=== PATIENT | male | born 1950 | race Caucasian/White ===

== ENCOUNTER → 2019-11-02 13:24 | Outpatient (BNVA) | payer OTHER, SELFPAY | PROVIDERS: Family Provider Internal Medicine; PCP Internal Medicine; Visit Provider Internal Medicine Rheumatology | DX: L40.50 Arthropathic psoriasis, unspecified (principal); Z11.59 Encounter for screening for other viral diseases; Z79.899 Other long term (current) drug therapy; Z11.1 Encounter for screening for respiratory tuberculosis; L40.0 Psoriasis vulgaris; M19.90 Unspecified osteoarthritis, unspecified site; Z72.89 Other problems related to lifestyle; Z40.9 Encounter for prophylactic surgery, unspecified; Z71.89 Other specified counseling | CPT/HCPCS: 36415; 85025; 86480; 99214 ==

== ENCOUNTER → 2019-11-02 14:36 | Outpatient (BNVA) | payer MEDICARE, SELFPAY | PROVIDERS: Family Provider Internal Medicine; PCP Internal Medicine; Visit Provider Internal Medicine Rheumatology | DX: L40.50 Arthropathic psoriasis, unspecified (principal); Z79.899 Other long term (current) drug therapy; L40.9 Psoriasis, unspecified; Z11.59 Encounter for screening for other viral diseases; L40.0 Psoriasis vulgaris; M19.90 Unspecified osteoarthritis, unspecified site; Z71.89 Other specified counseling | CPT/HCPCS: 85025 ==

== ENCOUNTER 2019-11-02 15:18 | Outpatient (CLI) | payer OTHER, SELFPAY ==
--- NOTE | 2019-11-02 15:41 | XR_ITS ---
WS: [id number] LEFT ELBOW: 2 VIEW(S) TECHNIQUE: AP and lateral. HISTORY: arthritis COMPARISON: None available. No acute fractures or dislocation. No joint effusion. Mild spurring at the coronoid process. XR/XR elbow LT 2V [id number] IMPRESSION: Mild osteoarthritis.
--- NOTE | 2019-11-02 15:41 | XR_ITS ---
WS: [id number] RIGHT FOOT: 3 VIEW(S) TECHNIQUE: PA, oblique and lateral. HISTORY: arthritis COMPARISON: 08/01/2019 No acute fracture or dislocation. Severe joint space narrowing at the first metatarsophalangeal joint. Hypertrophic bone formation and sclerosis with complete loss of the joint space. No metatarsal head erosions. No soft tissue abnormality or bone destruction. XR/XR foot RT min 3V* [id number] IMPRESSION: Severe osteoarthritis at the first metatarsophalangeal joint.
--- NOTE | 2019-11-02 15:41 | XR_ITS ---
WS: [id number] LEFT HAND: 3 VIEW(S) TECHNIQUE: PA, oblique and lateral. HISTORY: arthritis COMPARISON: None available. No acute fracture or dislocation. Mild interphalangeal joint space narrowing. No erosions. No osteopenia. XR/XR hand LT min 3V* [id number] IMPRESSION: Mild osteoarthritis.
--- NOTE | 2019-11-02 15:41 | XR_ITS ---
WS: [id number] CHEST 2 VIEWS HISTORY: arthritis COMPARISON: 02/02/2016 Lungs: Linear atelectasis in the lingula. Benign granuloma RIGHT upper lobe. No pneumonia. Mild reggie ening of the diaphragms. Cardiac size: Normal. Mediastinum/Aorta: Mild atherosclerosis aorta. Bones: Prior anterior cervical fusion. XR/XR chest 2V* [id number] IMPRESSION: Subsegmental atelectasis in the lingula. Prior granulomatous disease.
--- NOTE | 2019-11-02 15:41 | XR_ITS ---
WS: [id number] RIGHT HAND: 3 VIEW(S) TECHNIQUE: PA, oblique and lateral. HISTORY: arthritis COMPARISON: None available. Mild interphalangeal joint space narrowing. Mild narrowing of the metacarpal phalangeal joints. No er osions are appreciated. No soft tissue edema. XR/XR hand RT min 3V* [id number] IMPRESSION: Mild osteoarthritis.
--- NOTE | 2019-11-02 15:41 | XR_ITS ---
WS: [id number] LEFT FOOT: 3 VIEW(S) TECHNIQUE: PA, oblique and lateral. HISTORY: arthritis COMPARISON: None available. No acute fracture or dislocation. Severe degenerative changes at the first metatarsophalangeal joint. Loss of joint space with osteophy silvia and sclerosis. No metatarsal head erosions. Hammertoe deformities. Normal tarsal/metatarsal alignment. XR/XR foot LT min 3V* [id number] IMPRESSION: 1. Severe osteoarthritis at the first metatarsophalangeal joint. 2. Hammertoe deformities.
== END 2019-11-02 15:19 | disposition home or self-care (01) ==
LOC: RADWPI 15:28
PROVIDERS: Family Provider Internal Medicine; PCP Internal Medicine; Visit Provider Internal Medicine Rheumatology
DX: L40.50 Arthropathic psoriasis, unspecified (principal); Z11.59 Encounter for screening for other viral diseases; Z79.899 Other long term (current) drug therapy; Z11.1 Encounter for screening for respiratory tuberculosis; L40.0 Psoriasis vulgaris; M19.90 Unspecified osteoarthritis, unspecified site; Z72.89 Other problems related to lifestyle; Z71.89 Other specified counseling; M19.042 Primary osteoarthritis, left hand; M19.041 Primary osteoarthritis, right hand; M19.072 Primary osteoarthritis, left ankle and foot; M19.071 Primary osteoarthritis, right ankle and foot; M20.42 Other hammer toe(s) (acquired), left foot; M19.022 Primary osteoarthritis, left elbow; J98.11 Atelectasis
CPT/HCPCS: 71046; 73070; 73130; 73630; 80076; 82565; 85651; 86140; 86704; 86803; 87340

== ENCOUNTER → 2020-01-06 08:15 | Outpatient (BNVA) | payer OTHER, SELFPAY | PROVIDERS: Family Provider Internal Medicine; PCP Internal Medicine; Visit Provider Orthopaedic Surgery | DX: Z96.652 Presence of left artificial knee joint (principal) | CPT/HCPCS: 73560; 73565 ==

== ENCOUNTER → 2020-01-25 14:06 | Outpatient (BNVA) | payer OTHER, SELFPAY | PROVIDERS: Family Provider Internal Medicine; PCP Internal Medicine; Visit Provider Internal Medicine Rheumatology | DX: Z79.899 Other long term (current) drug therapy (principal) | CPT/HCPCS: 36415; 80076; 82565; 85025; 85651; 86140 ==

== ENCOUNTER → 2020-02-01 15:24 | Outpatient (BNVA) | payer SELFPAY | PROVIDERS: Family Provider Internal Medicine; PCP Internal Medicine; Visit Provider Internal Medicine Rheumatology | DX: L40.50 Arthropathic psoriasis, unspecified (principal); Z79.899 Other long term (current) drug therapy; L40.0 Psoriasis vulgaris | CPT/HCPCS: 99214 ==

== ENCOUNTER → 2020-09-27 14:20 | Outpatient (BNVA) | payer OTHER, SELFPAY | PROVIDERS: Family Provider Internal Medicine; PCP Family Medicine; Referring Provider Family Medicine; Visit Provider Nurse Practitioner Family | DX: R39.15 Urgency of urination (principal); N40.1 Benign prostatic hyperplasia with lower urinary tract symptoms | CPT/HCPCS: 81003 ==

== ENCOUNTER → 2020-11-29 10:46 | Outpatient (BNVA) | payer OTHER, SELFPAY | PROVIDERS: Family Provider Internal Medicine; PCP Family Medicine; Visit Provider Urology | DX: N40.1 Benign prostatic hyperplasia with lower urinary tract symptoms (principal); R35.8 Other polyuria | CPT/HCPCS: 81003 ==

== ENCOUNTER → 2021-03-27 15:57 | Outpatient (BNVA) | payer OTHER, SELFPAY | PROVIDERS: PCP Family Medicine; Visit Provider Urology | DX: N40.1 Benign prostatic hyperplasia with lower urinary tract symptoms (principal); R35.8 Other polyuria | CPT/HCPCS: 81003 ==

== ENCOUNTER 2021-04-11 08:32 | Outpatient (CLI) | payer MEDICARE, SELFPAY ==
--- NOTE | 2021-04-11 08:40 | CT_ITS ---
WS: [id number] Exam: CT chest w con* [id number] Date/Time of Exam: 04/11/2021 8:41 AM Reason For Exam: COUGH DLP: 983.[address] scans at [facility] use at least one of these dose optimization techniques: automat ed exposure control; mA and/or kV adjustment per patient size (includes targeted exams where dose is matched to clinical indication); or iterative reconstruction. There are areas of plaque atelectasis in the left lung base. No acute infiltrates are noted. No pleur al or pericardial effusion. No pneumothorax. The airway is patent. The thoracic aorta is normal in ca liber. The central pulmonary arteries are clear. Mild coronary artery calcifications. No mediastinal or hilar lymphadenopathy. No axillary lymphadenopathy. No destructive bone lesions or chest wall defe cts. CT sections the upper abdomen are unremarkable. Prior cholecystectomy. CT/CT chest w con* [id number] IMPRESSION: 1. Plaque atelectasis in the left lower lobe. No acute infiltrates are noted. 2. No mass, adenopathy or other significant finding in the chest.
[2021-04-11] MEDS: iodixanol 320 mg/mL 100mL Btl IV (09:08)
== END 2021-04-11 08:33 | disposition home or self-care (01) ==
PROVIDERS: PCP Family Medicine; Visit Provider Family Medicine
DX: R05 Cough (principal); J98.11 Atelectasis
CPT/HCPCS: 71260; Q9967

== ENCOUNTER → 2021-06-11 13:52 | Outpatient (BNVA) | payer OTHER, SELFPAY | PROVIDERS: PCP Family Medicine; Visit Provider Internal Medicine Rheumatology | DX: L40.50 Arthropathic psoriasis, unspecified (principal); L40.0 Psoriasis vulgaris; M19.90 Unspecified osteoarthritis, unspecified site; Z79.899 Other long term (current) drug therapy; Z71.89 Other specified counseling; Z87.891 Personal history of nicotine dependence | CPT/HCPCS: 99214 ==

== ENCOUNTER → 2021-09-26 16:20 | Outpatient (BNVA) | payer OTHER, SELFPAY | PROVIDERS: PCP Family Medicine; Visit Provider Internal Medicine Cardiovascular Disease | DX: R06.02 Shortness of breath (principal); R42 Dizziness and giddiness; I50.33 Acute on chronic diastolic (congestive) heart failure; Z79.01 Long term (current) use of anticoagulants | CPT/HCPCS: 80048; 83880; 84443; 85025 ==

== ENCOUNTER 2021-10-03 11:43 | Outpatient (CLI) | payer OTHER, MEDICARE, SELFPAY ==
--- NOTE | 2021-10-03 11:45 | USCV_ITS ---
Kvngsho Juan Age: 71 Gender: M : 1950 Exam Date: 10/03/2021 12:16 Ordering Phys: Dara Enriquez MD ([email or web address]) Technologist: [email or web address] Exam Location: [facility] [place] Indication: DYSPNEA BP: 169 / 90 HR: 50 Rhythm: Sinus Technical Quality: Adequate MEASUREMENTS (Male / Female) Normal Values 2D ECHO LV Diastolic Diameter PLAX 4.3 cm 4.2 - 5.9 / 3.9 - 5.3 cm LV Systolic Diameter PLAX 2.2 cm IVS Diastolic Thickness 0.8 cm 0.6 - 1.0 / 0.6 - 0.9 cm IVS Systolic Thickness 1.7 cm LVPW Diastolic Thickness 0.9 cm 0.6 - 1.0 / 0.6 - 0.9 cm LVPW Systolic Thickness 2.6 cm LVOT Diameter 2.1 cm LV Ejection Fraction 2D Teich 49.8 % LV Ejection Fraction MOD 2C 58.2 % LV Ejection Fraction 2C AL 57.3 % LA Diameter 3.5 cm LA Width 3.7 cm LA Height 5.2 cm RA Width 3.1 cm RA Height 2.1 cm Aorta at Sinotubular Diameter 3.2 cm M-MODE Aortic Annulus Diameter 3.1 cm LA Ao Ratio MM 1.3 MV E Point Septal Separation 0.6 cm DOPPLER AV Peak Velocity 145.0 cm/s LVOT Peak Velocity 104.0 cm/s AV Area Cont Eq vti 2.3 cm squared AV Area Cont Eq pk 2.4 cm squared MV Area PHT 2.2 cm squared Mitral E to A Ratio 0.6 MV E' Velocity 33.0 cm/s Mitral E to MV E' Ratio 12.1 Mitral E to LV E' Lateral Ratio 10.8 Mitral E to LV E' Septal Ratio 14.0 TR Peak Velocity 142.0 cm/s TR Peak Gradient 8.1 mmHg TV Peak E Velocity 74.0 cm/s Right Atrial Pressure 3.0 mmHg Pulmonary Artery Systolic Pressu 11.1 mmHg FINDINGS Left Ventricle Normal left ventricular size and systolic function, EF 57 %. No regional wall motion abnormalities. Right Ventricle Normal right ventricular size and systolic function. Right Atrium The right atrium is normal in size. Left Atrium The left atrium is normal in size. Mitral Valve Thickened mitral valve. Trace mitral valve regurgitation. Aortic Valve Thickened aortic valve. Tricuspid Valve Trace tricuspid valve regurgitation. Pulmonic Valve No gross abnormalities noted Pericardium Normal pericardium without effusion. Aorta Normal ascending aorta dimension. CONCLUSIONS Normal left ventricular size and systolic function, EF 57 %. No regional wall motion abnormalities. Minimally thickened aortic and mitral valves. Trace mitral valve regurgitation. Trace tricuspid valve regurgitation. There is no pericardial effusion. There are no intracardiac masses. No previous study is available for comparison. Dr Dara Enriquez MD FACC (Electronically Signed) Final Date: 03 October 2021 19:45 S
== END 2021-10-03 11:44 | disposition home or self-care (01) ==
LOC: RAD 11:50
PROVIDERS: PCP Family Medicine; Visit Provider Internal Medicine Cardiovascular Disease
DX: R06.00 Dyspnea, unspecified (principal); R06.02 Shortness of breath; I08.3 Combined rheumatic disorders of mitral, aortic and tricuspid valves
CPT/HCPCS: 93306

== ENCOUNTER → 2021-10-08 13:43 | Outpatient (BNVA) | payer OTHER, SELFPAY | PROVIDERS: PCP Family Medicine; Visit Provider Internal Medicine Rheumatology | DX: L40.0 Psoriasis vulgaris (principal); Z79.899 Other long term (current) drug therapy; L40.50 Arthropathic psoriasis, unspecified; Z71.89 Other specified counseling; Z87.891 Personal history of nicotine dependence | CPT/HCPCS: 99213 ==

== ENCOUNTER 2021-10-28 11:38 | Outpatient (CLI) | payer OTHER, SELFPAY ==
--- NOTE | 2021-10-28 | US_ITS ---
WS: [id number] DIAGNOSTIC BILATERAL DIGITAL MAMMOGRAM WITH CAD LEFT breast ultrasound, limited HISTORY: LT BREAST TENDERNESS, 71-year-old male. COMPARISON: None available. TECHNIQUE: Bilateral craniocaudad, mediolateral oblique, and mediolateral views are submitted. Spot compression LEFT MLO. Computer aided detection utilized. Breast composition: The breasts are almost entirely fatty. Very minimal increased soft tissue posterior to the LEFT nipple. This corresponds to the palpable marker. Similar findings but to a lesser extent on the RIGHT. No nipple retraction or solid mass. LEFT breast ultrasound, limited. Ultrasound is directed to the posterior LEFT nipple in the area the palpable abnormality. There is a hypoechoic area measuring 5 x 7 x 5 mm corresponding to the palpable area. No significant increased vascularity. Smaller similar hypoechoic area posterior to the RIGHT nipple. MM/[place] [id number] IMPRESSION: BI-RADS: 2-Benign FOLLOW UP: See Report Mild gynecomastia LEFT breast corresponds to the palpable abnormality. TREVA
--- NOTE | 2021-10-28 12:13 | MM_ITS ---
WS: [id number] DIAGNOSTIC BILATERAL DIGITAL MAMMOGRAM WITH CAD LEFT breast ultrasound, limited HISTORY: LT BREAST TENDERNESS, 71-year-old male. COMPARISON: None available. TECHNIQUE: Bilateral craniocaudad, mediolateral oblique, and mediolateral views are submitted. Spot c ompression LEFT MLO. Computer aided detection utilized. Breast composition: The breasts are almost entirely fatty. Very minimal increased soft tissue posteri or to the LEFT nipple. This corresponds to the palpable marker. Similar findings but to a lesser exte nt on the RIGHT. No nipple retraction or solid mass. LEFT breast ultrasound, limited. Ultrasound is directed to the posterior LEFT nipple in the area the palpable abnormality. There is a hypoechoic area measuring 5 x 7 x 5 mm corresponding to the palpable area. No significant increased vascularity. Smaller similar hypoechoic area posterior to the RIGHT nipple. MM/[id number] IMPRESSION: BI-RADS: 2-Benign FOLLOW UP: See Report Mild gynecomastia LEFT breast corresponds to the palpable abnormality.
== END 2021-10-28 11:39 | disposition home or self-care (01) ==
LOC: RADSHAW 11:43
PROVIDERS: PCP Family Medicine; Visit Provider Family Medicine
DX: N64.4 Mastodynia (principal); N62 Hypertrophy of breast
CPT/HCPCS: 76642; 77066

== ENCOUNTER → 2021-11-28 16:38 | Outpatient (BNVA) | payer OTHER, SELFPAY | PROVIDERS: PCP Family Medicine; Visit Provider Internal Medicine Pulmonary Disease | DX: Z20.822 Contact with and (suspected) exposure to COVID-19 (principal) | CPT/HCPCS: 87635 ==

== ENCOUNTER 2021-12-04 10:13 | Outpatient (CLI) | payer OTHER, SELFPAY ==
--- NOTE | 2021-12-04 13:36 | PFTS_ITS ---
Date of Study:12/04/21 Date of Dictation: 12/06/2021 MECHANICS: Prebronchodilator forced vital capacity (FVC) is normal. Prebronchodilator forced expiratory volume in one second (FEV1) is normal. FEV1/FVC is normal. Postbronchodilator study not performed. FLOW VOLUME LOOP: Normal. LUNG VOLUMES: TLC is normal. RV is increased in suggesting significant air trapping. DIFFUSING CAPACITY FOR CARBON MONOXIDE: Normal . INTERPRETATION: The prebronchodilator spirometry is normal. Lung volumes increased indirectly suggesting significant air trapping. Gas transfer is normal Clinical correlation recommended. MTDD
== END 2021-12-04 10:14 | disposition home or self-care (01) ==
LOC: RT 10:16
PROVIDERS: PCP Family Medicine; Visit Provider Internal Medicine Pulmonary Disease
DX: J45.909 Unspecified asthma, uncomplicated (principal)
CPT/HCPCS: 94010; 94726; 94729

== ENCOUNTER → 2021-12-09 14:00 | Outpatient (BNVA) | payer OTHER, SELFPAY | PROVIDERS: PCP Family Medicine; Visit Provider Internal Medicine Pulmonary Disease | DX: J45.20 Mild intermittent asthma, uncomplicated (principal); I25.118 Atherosclerotic heart disease of native coronary artery with other forms of angina pectoris; R06.00 Dyspnea, unspecified; T78.40XA Allergy, unspecified, initial encounter; X58.XXXA Exposure to other specified factors, initial encounter; Z87.891 Personal history of nicotine dependence | CPT/HCPCS: 82785; 86003; 99214 ==

== ENCOUNTER → 2022-01-02 13:57 | Outpatient (BNVA) | payer OTHER, SELFPAY | PROVIDERS: PCP Family Medicine; Visit Provider Internal Medicine Cardiovascular Disease | DX: I25.118 Atherosclerotic heart disease of native coronary artery with other forms of angina pectoris (principal); R55 Syncope and collapse; I10 Essential (primary) hypertension; R06.02 Shortness of breath; R00.1 Bradycardia, unspecified; Z87.891 Personal history of nicotine dependence | CPT/HCPCS: 93229; 99214 ==

== ENCOUNTER 2022-01-09 16:58 | Outpatient (CLI) | payer OTHER, SELFPAY ==
--- NOTE | 2022-01-09 17:10 | MR_ITS ---
WS: [id number] MRI LUMBAR SPINE NONCONTRAST TECHNIQUE: Sagittal T1, T2 and STIR imaging. Axial T1 and T2 imaging. CLINICAL INFORMATION: LOW BACK PAIN COMPARISON: None. FINDINGS: Mild lumbar curve. No acute compression. No high-grade central canal stenosis. Slight retrolisthesis L1 on L2 and L2 on L3. Disc space narrowing worse L4-L5. L1-L2: Slight retrolisthesis. Narrowing of the subarticular recess bilaterally. Mild facet arthropath y. Foramen are patent. L2-L3: Slight retrolisthesis. Mild disc bulging and osteophytic ridging. Slight impingement traversin g L3 nerve roots bilaterally. Mild facet arthropathy. Foramen are patent. L3-L4: Mild disc bulging with mild central canal stenosis. Impingement subarticular recess bilaterall y RIGHT greater than LEFT L4 nerve root. Mild RIGHT foraminal narrowing. L4-L5: Mild disc bulging with osteophytic ridging. Impingement on the RIGHT subarticular recess and t raversing RIGHT L5 nerve root. Mild RIGHT foraminal narrowing. LEFT foramen is patent. Moderate facet arthropathy. L5-S1: Mild disc bulging and osteophytic ridging. Shallow RIGHT paracentral disc osteophyte protrusio n. Impingement on the traversing RIGHT greater than LEFT S1 nerve roots. Mild RIGHT and no significant LEFT foraminal narrowing. Cervical fusion C5-C6. Small central protrusion C4-C5 with mild central canal stenosis. . MR/MR lumbar spine wo con* [id number] IMPRESSION: 1. Mild lumbar curve. No acute compression. No high-grade central canal stenos is. 2. Mild central canal stenosis L3-L4 with impingement on the traversing RIGHT greater than LEFT L4 nerve roots. 3. Disc osteophytic ridging L4-L5 impinges the RIGHT subarticular recess and t raversing RIGHT L5 nerve root. Mild RIGHT L4-L5 foraminal narrowing. 4. RIGHT paracentral disc osteophyte protrusion with impingement traversing RI GHT S1 nerve root with a small annular fissure. Mild RIGHT L5-S1 foraminal narr owing. 5. Mild narrowing subarticular recess bilaterally L1-L2 and L2-L3. 6. Moderate facet arthropathy worse L4-L5.
--- NOTE | 2022-01-09 17:22 | XR_ITS ---
WS: [id number] LUMBAR SPINE FLEXION AND EXTENSION TECHNIQUE: 3 views of the lumbar spine: Lateral neutral, flexion, and extension views. CLINICAL INFORMATION: VERTEBROGENIC LOW BACK PAIN COMPARISON: None. FINDINGS: Slight retrolisthesis L1 on L2. Retrolisthesis L2 on L3 measuring 3.4 mm. This decreases on flexion t o 2.5 mm and increases slightly on extension to 4.8 mm. Disc space narrowing worse at L2-L3 L3-L4 L4- L5 and L5-S1. This is worse at L4-L5 and L5-S1. No acute compression fractures. Advanced facet arthro taty L5-S1 with bony foraminal narrowing. Aortic calcification. Cholecystectomy clips. XR/XR lumbar spine f/e only [id number] IMPRESSION: 1. Slight retrolisthesis L2 on L3 with mild flexion extension stability. 2. Disc space narrowing worse at L4-L5 and L5-S1. 3. No acute compression fractures. 4. Advanced facet arthropathy L5-S1 with bony foraminal narrowing.
== END 2022-01-09 16:59 | disposition home or self-care (01) ==
LOC: RAD 17:05
PROVIDERS: PCP Family Medicine; Visit Provider Nurse Practitioner
DX: M54.51 Vertebrogenic low back pain (principal); M48.07 Spinal stenosis, lumbosacral region; M48.02 Spinal stenosis, cervical region
CPT/HCPCS: 72120; 72148

== ENCOUNTER 2022-01-14 08:54 | Outpatient (RCR) | payer OTHER, SELFPAY | END 2022-02-11 23:59 | disposition home or self-care (01) | LOC: CR 08:54 | PROVIDERS: PCP Family Medicine; Referring Provider Internal Medicine Cardiovascular Disease; Visit Provider Internal Medicine Cardiovascular Disease | DX: Z95.5 Presence of coronary angioplasty implant and graft (principal) | CPT/HCPCS: 93798 ==

== ENCOUNTER 2022-02-12 13:41 | Outpatient (RCR) | payer OTHER, SELFPAY | END 2022-03-13 23:59 | disposition home or self-care (01) | LOC: CR 13:41 | PROVIDERS: PCP Family Medicine; Referring Provider Internal Medicine Cardiovascular Disease; Visit Provider Internal Medicine Cardiovascular Disease | DX: Z95.5 Presence of coronary angioplasty implant and graft (principal) | CPT/HCPCS: 93798 ==

== ENCOUNTER → 2022-02-26 11:31 | Outpatient (BNVA) | payer OTHER, SELFPAY | PROVIDERS: PCP Family Medicine; Visit Provider Internal Medicine Rheumatology | DX: L40.50 Arthropathic psoriasis, unspecified (principal); L40.0 Psoriasis vulgaris; M19.90 Unspecified osteoarthritis, unspecified site; Z79.899 Other long term (current) drug therapy; Z71.89 Other specified counseling | CPT/HCPCS: 99214 ==

== ENCOUNTER → 2022-02-27 16:00 | Outpatient (BNVA) | payer OTHER, SELFPAY | PROVIDERS: PCP Family Medicine; Visit Provider Family Medicine | DX: R19.7 Diarrhea, unspecified (principal) | CPT/HCPCS: 83630; 87177; 87209; 87493; 87506 ==

== ENCOUNTER → 2022-03-11 13:01 | Outpatient (BNVA) | payer OTHER, SELFPAY | PROVIDERS: PCP Family Medicine; Visit Provider Internal Medicine Pulmonary Disease | DX: R06.02 Shortness of breath (principal); J45.20 Mild intermittent asthma, uncomplicated; T78.40XA Allergy, unspecified, initial encounter; I25.118 Atherosclerotic heart disease of native coronary artery with other forms of angina pectoris; R06.00 Dyspnea, unspecified; Z87.891 Personal history of nicotine dependence; I10 Essential (primary) hypertension; E03.9 Hypothyroidism, unspecified | CPT/HCPCS: 99214 ==

== ENCOUNTER 2022-03-14 14:24 | Outpatient (RCR) | payer OTHER, SELFPAY | END 2022-04-13 23:59 | disposition home or self-care (01) | LOC: CR 14:24 | PROVIDERS: PCP Family Medicine; Referring Provider Internal Medicine Cardiovascular Disease; Visit Provider Internal Medicine Cardiovascular Disease | DX: Z95.5 Presence of coronary angioplasty implant and graft (principal) | CPT/HCPCS: 93798 ==

== ENCOUNTER 2022-04-14 14:38 | Outpatient (RCR) | payer OTHER, SELFPAY | END 2022-05-14 23:59 | disposition home or self-care (01) | LOC: CR 14:38 | PROVIDERS: PCP Family Medicine; Referring Provider Internal Medicine Cardiovascular Disease; Visit Provider Internal Medicine Cardiovascular Disease | DX: Z95.5 Presence of coronary angioplasty implant and graft (principal) | CPT/HCPCS: 93798 ==

== ENCOUNTER → 2022-04-21 14:23 | Outpatient (BNVA) | payer OTHER, SELFPAY | PROVIDERS: PCP Family Medicine; Visit Provider Urology | DX: N40.1 Benign prostatic hyperplasia with lower urinary tract symptoms (principal); E11.65 Type 2 diabetes mellitus with hyperglycemia; I10 Essential (primary) hypertension; E78.5 Hyperlipidemia, unspecified; L40.0 Psoriasis vulgaris; I25.10 Atherosclerotic heart disease of native coronary artery without angina pectoris; Z87.891 Personal history of nicotine dependence | CPT/HCPCS: 51741; 51798; 80053; 81003; 83036; 85025; 86140; 99213 ==

== ENCOUNTER → 2022-04-23 16:40 | Outpatient (BNVA) | payer OTHER, SELFPAY | PROVIDERS: PCP Family Medicine; Visit Provider Family Medicine | DX: B34.9 Viral infection, unspecified (principal) | CPT/HCPCS: 87426 ==

== ENCOUNTER 2022-05-15 12:21 | Outpatient (RCR) | payer OTHER, SELFPAY | END 2022-06-13 23:59 | disposition home or self-care (01) | LOC: CR 12:21 | PROVIDERS: PCP Family Medicine; Referring Provider Internal Medicine Cardiovascular Disease; Visit Provider Internal Medicine Cardiovascular Disease | DX: Z95.5 Presence of coronary angioplasty implant and graft (principal) | CPT/HCPCS: 93798 ==

== ENCOUNTER → 2022-06-03 10:53 | Outpatient (BNVA) | payer OTHER, SELFPAY | PROVIDERS: PCP Family Medicine; Visit Provider Internal Medicine Rheumatology | DX: L40.50 Arthropathic psoriasis, unspecified (principal); Z79.899 Other long term (current) drug therapy; L40.0 Psoriasis vulgaris; Z71.89 Other specified counseling | CPT/HCPCS: 99214 ==

== ENCOUNTER → 2022-07-03 14:07 | Outpatient (BNVA) | payer OTHER, SELFPAY | PROVIDERS: PCP Family Medicine; Visit Provider Internal Medicine Cardiovascular Disease | DX: I25.118 Atherosclerotic heart disease of native coronary artery with other forms of angina pectoris (principal); I10 Essential (primary) hypertension; E13.9 Other specified diabetes mellitus without complications; R00.2 Palpitations; Z87.891 Personal history of nicotine dependence | CPT/HCPCS: 99214 ==

== ENCOUNTER 2022-07-09 01:00 | Outpatient (CLI) | payer OTHER, SELFPAY | END 2022-07-09 21:01 | disposition home or self-care (01) | LOC: RAD 07-29 21:01 | PROVIDERS: PCP Family Medicine; Visit Provider Specialist | DX: T84.84XA Pain due to internal orthopedic prosthetic devices, implants and grafts, initial encounter (principal); Y79.2 Prosthetic and other implants, materials and accessory orthopedic devices associated with adverse incidents; M17.11 Unilateral primary osteoarthritis, right knee; Z96.652 Presence of left artificial knee joint | CPT/HCPCS: 99204 ==

== ENCOUNTER → 2022-07-09 11:07 | Outpatient (BNVA) | payer OTHER, SELFPAY | PROVIDERS: PCP Family Medicine; Referring Provider Family Medicine; Visit Provider Specialist | DX: T84.84XA Pain due to internal orthopedic prosthetic devices, implants and grafts, initial encounter (principal); Y79.2 Prosthetic and other implants, materials and accessory orthopedic devices associated with adverse incidents; M17.11 Unilateral primary osteoarthritis, right knee; Z96.652 Presence of left artificial knee joint | CPT/HCPCS: 73560; 73565 ==

== ENCOUNTER → 2022-07-28 14:10 | Outpatient (BNVA) | payer OTHER, SELFPAY | PROVIDERS: PCP Family Medicine; Referring Provider Family Medicine; Visit Provider Podiatrist Foot & Ankle Surgery | DX: M20.22 Hallux rigidus, left foot (principal); M20.21 Hallux rigidus, right foot; R26.89 Other abnormalities of gait and mobility | CPT/HCPCS: 73630; 99205 ==

== ENCOUNTER → 2022-09-11 15:04 | Outpatient (BNVA) | payer MEDICARE, SELFPAY | PROVIDERS: PCP Family Medicine; Visit Provider Nurse Practitioner Family | DX: R50.9 Fever, unspecified (principal); J02.9 Acute pharyngitis, unspecified; R05.9 Cough, unspecified | CPT/HCPCS: 87400 ==

== ENCOUNTER 2022-09-29 08:40 | Outpatient (CLI) | payer OTHER, MEDICARE, SELFPAY ==
--- NOTE | 2022-09-29 08:53 | NM_ITS ---
WS: [id number] NUCLEAR MEDICINE BONE SCAN Radiopharmaceutical: 22.1 Tc-99m MDP mCi IV Injection site: RIGHT antecubital Postinjection imaging delay: 1 hr CLINICAL INFORMATION: previous left knee total arthroplasty/increased pain COMPARISON: July 09, 2022 FINDINGS: Bone lesions: Postoperative changes LEFT TKA. Minimal periarticular uptake about the LEFT knee prosth esis within normal limits. No significant areas of increased uptake to indicate osteomyelitis or hard banks loosening Soft tissue contours: Normal. Kidneys: Normal. Other findings: None. NM/NM bone scan whole body* [id number] IMPRESSION: Normal bone scan.
== END 2022-09-29 08:41 | disposition home or self-care (01) ==
LOC: RAD 08:41
PROVIDERS: PCP Family Medicine; Visit Provider Specialist
DX: M25.562 Pain in left knee (principal); Z96.652 Presence of left artificial knee joint
CPT/HCPCS: 78306; A9561

== ENCOUNTER 2022-10-09 09:49 | Day surgery (SDC) | payer OTHER, SELFPAY ==
[2022-10-07 15:20] VITALS: BMI 31.3
--- NOTE | 2022-10-07 15:37 | SUR.PREOP ---
patient refused to review any futher medications after the first 10, stating he had done this in doctors office.
[2022-10-09] VITALS (8 sets, daily range): BP systolic 109–161; BP diastolic 69–84; PULSE 46–62; RESP 13–18; TEMP 36.5–36.6; O2SAT 94–100
--- NOTE | 2022-10-09 | XR_ITS ---
WS: [id number] INTRAOPERATIVE TECHNIQUE: 11 Spot fluoroscopic images for intraoperative purposes. FLUOROSCOPY TIME: ?? seconds CLINICAL INFORMATION: [facility] COMPARISON: None. FINDINGS: Intraoperative changes bunionectomy with plate and screw fixation across the 1st MTP. XR/XR foot LT 2V [id number] IMPRESSION: Images obtained for intraoperative purposes.
--- NOTE | 2022-10-09 10:06 | P.ANESASSM_ITS ---
Pre-Anesthetic Assessment Height/Weight: Height 1.7 m Weight 90.718 kg Preop Diagnosis: Left hallux rigidus Operation Date: 10/09/22 11:00 Proposed Procedures p ?Left first metatarsal phalangeal joint fusion 72396,M20.22(Left) - Black Stark DPM Familial anesthetic complications: none Was Beta Giles taken within 24 hours: N/A Was Clonidine taken within 24 hours: N/A Last intake: > 8hrs Social No alcohol and No tobacco Exam alert, oriented x 3, clear to auscultation bilaterally and regular rate & rhythm Airway Mallampati: Class IV Dentition: other (no teeth) Comments: Comments: full haas Pulmonary Asthma and Exertional Dyspnea CV/HEM Arrythmia (bradycardia), Coronary Artery Disease, Hypertension and Myocardial Infarction (stents) Denies recent CP, syncope, etc. States he can walk up a couple flights of stairs or walk two city blocks Sometimes. other times he gets tired and has to rest 10/05 echo CONCLUSIONS ?Normal left ventricular size and systolic function, EF 57 %. ?No regional wall motion abnormalities. ?Minimally thickened aortic and mitral valves. ?Trace mitral valve regurgitation. ?Trace tricuspid valve regurgitation. ?There is no pericardial effusion. ?There are no intracardiac masses. ?No previous study is available for comparison. 01/03 holter Conclusion: 1.? The baseline rhythm was found to be sinus bradycardia with an overall average heart rate of 52 bpm.? Rare ventricular and supraventricular ectopics were noted. 2.? No significant tachy arrhythmias.? No symptoms are mentioned in the recordings.? No significant pauses. 3.? No previous similar studies, available for comparison Has declined perfusion scans GI Gastroesophageal Reflux Disease Metabolic Diabetes Mellitus and Thyroid Disease patient denies DM Anesthetic Plan ASA status: 3 Anesthesia: MAC Risk of > 500 ml blood loss (7ml/kg in children): No Medications/Allergies Home Medications Medication Instructions Recorded Confirmed Last Taken Type aspirin 81 mg tablet,delayed 81 mg PO DAILY 11/01/19 10/07/22 10/05/22 20:00 History release (Adult Low Dose Aspirin) levothyroxine 112 mcg tablet 112 mcg PO DAILY 11/01/19 09/11/22 Unknown History omeprazole 20 mg tablet,delayed 20 mg PO DAILY 11/01/19 09/11/22 Unknown History release magnesium oxide 400 mg PO DAILY 03/27/21 09/11/22 Unknown History multivitamin 1 tab PO DAILY 03/27/21 09/11/22 Unknown History omega-3 fatty acids 1,000 mg 1,000 mg PO DAILY 03/27/21 09/11/22 Unknown History capsule (Fish Oil Concentrate) lamotrigine 150 mg tablet 150 mg PO BID 05/08/21 09/11/22 Unknown History venlafaxine 75 mg capsule,extended 150 mg PO DAILY 05/08/21 09/11/22 Unknown History release 24 hr azelastine 137 mcg (0.1 %) nasal 1 spray intranasal BID 09/26/21 10/07/22 10/05/22 History spray aerosol albuterol sulfate 90 mcg/actuation 1 inh inhalation QID PRN shortness 10/11/21 10/07/22 10/06/22 Rx aerosol inhaler (Ventolin HFA) of breath or wheezing #8.5 grams clopidogrel 75 mg tablet (Plavix) 75 mg PO DAILY #100 tabs 11/19/21 10/07/22 10/06/22 Rx guaifenesin 400 mg tablet 400 mg PO TID 01/07/22 09/11/22 Unknown History donepezil 10 mg tablet 10 mg PO BEDTIME 03/14/22 10/07/22 10/06/22 History fluticasone 100 mcg-salmeterol 50 1 inh inhalation BID #60 ea 03/21/22 10/07/22 10/06/22 Rx mcg/dose blistr powdr for inhalation (Advair Diskus) folic acid 1 mg tablet 1 mg PO DAILY #90 tabs 06/03/22 10/07/22 10/06/22 Rx biotin 5,000 mcg disintegrating 10,000 mcg PO DAILY 07/03/22 10/07/22 10/07/22 History tablet cholecalciferol (vitamin D3) 25 25 mcg PO DAILY 07/03/22 10/07/22 Unknown History mcg (1,000 unit) capsule losartan 25 mg tablet 12.5 mg PO DAILY 07/03/22 09/11/22 Unknown History primidone 50 mg tablet See Rx Instructions .Route 07/03/22 09/11/22 Unknown Rx .COMPLEX #180 tabs methotrexate sodium 2.5 mg tablet 10 mg PO .week Rheumatoid 08/06/22 09/11/22 Unknown Rx Arthritis 4 months #80 tabs potassium chloride 8 mEq 8 meq PO DAILY #90 tabs 08/06/22 09/11/22 Unknown Rx tablet,extended release hydralazine 10 mg tablet See Rx Instructions .Route 08/21/22 09/11/22 Unknown Rx .COMPLEX #1,080 tabs lithium carbonate 300 mg tablet See Rx Instructions .Route 09/12/22 Unknown Rx .COMPLEX #180 tabs atorvastatin 80 mg tablet (Lipitor) 80 mg PO DAILY 10/07/22 10/07/22 10/05/22 History hydrocodone 10 mg-acetaminophen 1 tab PO Q6H PRN pain 7 days #28 10/09/22 Unknown Rx 325 mg tablet tabs Allergies Allergy/AdvReac Type Severity Reaction Status Date / Time No Known Allergies Allergy Verified 10/09/22 10:02 [facility] Anesthesia Medical History Benign essential hypertension Bipolar disorder BPH loc w urin obs/LUTS COPD (chronic obstructive pulmonary disease) Coronary artery disease Dementia Generalized osteoarthritis Hearing loss High risk medication use Hypothyroidism Immunization counseling Impaired cognition Inflammatory arthritis Myocardial infarction Myocardial infarction acute 08/31/[address] [facility] with 2 stents placed Palpitations Plaque psoriasis Psoriatic arthritis Spondylolisthesis Tinnitus Surgical History History of appendectomy History of back surgery History of cholecystectomy History of knee surgery History of left knee replacement History of PTCA Hx of neck surgery Family History Mother , at age 62 Cancer Breast,bone Father , at age 92 CHF (congestive heart failure) Other Hypertension Denies family history of Rheumatoid arthritis Diabetes Lupus CAD (coronary artery disease) Clotting disorder Dementia Chronic kidney disease (CKD) Systemic lupus erythematosus (SLE) in adult Suicide Anesthesia complication Bleeding disorder Family history of premature coronary artery disease Lung disease Stroke Social History Smoking and tobacco status: former smoker Quit status (tobacco): has quit using tobacco Former quit date comment: 1ppd x 10 years and marijuana use, started at age 16 years Alcohol intake: never Marital status: service: Yes status: Discharged branch: [employer] branch details: [place] timeframe Current occupational status: retired History of recent travel: No Data Anesthesia Cardiac Studies: Echocardiogram 10/03/21 Cardiac Event Monitor 01/02/22
--- NOTE | 2022-10-09 10:30 | W.PM.OPSUD ---
Surgery/Procedure H&P Update DATE OF PROCEDURE: October 09, 2022 DATE H&P PERFORMED: 10/09/22 CHANGES TO PREVIOUS DOCUMENTATION: none PREOP DIAGNOSIS: Left hallux rigidus PLANNED PROCEDURE: Operation Date: 10/09/22 11:00 Proposed Procedures p ?Left first metatarsal phalangeal joint fusion 58639,M20.22(Left) - Black Stark DPM
[2022-10-09] MEDS: gabapentin 300 mg Capsule PO (10:31)
[2022-10-09] MEDS: CELEcoxib 200 mg Capsule 400 MG PO (10:31)
[2022-10-09] MEDS: sodium chloride 0.9% 1,000 ML 30 ML IV (10:31)
--- NOTE | 2022-10-09 10:31 | PM.OPSURHP ---
Providers/Chief Complaint Primary Care Provider: Tracey Feliciano MD Chief Complaint: surgery History of Present Illness Juan Larsen is a 72 year old male presents with pain to the left great toe joint that has been progressive over the course of several years and is no longer responding to conservative treatment. His pain is graded as a 7 out of 10 and becomes sharp stabbing with increased activity and while resting his achy and throbbing. He has noticed a significant decrease in range of motion his left great toe and has bony spurring visibly tenting his skin that also causes pain when wearing shoes. Conservative treatments have included anti-inflammatories, orthopedic shoes, orthotics, stretching and activity modifications without relief. He is here to discuss surgical options. Patient denies any subjective nausea, vomiting, fever, chills, shortness of breath or chest pain. Review of Systems General: Reports: 10 or more systems reviewed and unremarkable except in HPI and below Const: Denies: fever(s) or chills Eyes: Denies: change in vision Card: Denies: chest pain or palpitations Resp: Denies: dyspnea or productive cough GI: Denies: abdominal pain, nausea or vomiting : Denies: flank pain Musc: Reports: extremity pain, joint pain, joint stiffness, limited range of motion and deformity Skin/Breast: Reports: skin tenderness; Denies: rash Neuro: Reports: difficulty walking; Denies: numbness in extremities, sensory changes or frequent falls Psych: Denies: suicidal ideation Nam/Lymph: Denies: easy bruising Medications/Allergies Home Medications Medication Instructions Recorded Confirmed Last Taken Type aspirin 81 mg tablet,delayed 81 mg PO DAILY 11/01/19 10/07/22 10/05/22 History release (Adult Low Dose Aspirin) levothyroxine 112 mcg tablet 112 mcg PO DAILY 11/01/19 10/09/22 10/08/22 History omeprazole 20 mg tablet,delayed 20 mg PO DAILY 11/01/19 10/09/22 10/08/22 History release magnesium oxide 400 mg PO DAILY 03/27/21 10/09/22 10/08/22 History multivitamin 1 tab PO DAILY 03/27/21 09/11/22 Unknown History omega-3 fatty acids 1,000 mg 1,000 mg PO DAILY 03/27/21 10/09/22 10/08/22 History capsule (Fish Oil Concentrate) lamotrigine 150 mg tablet 150 mg PO BID 05/08/21 10/09/22 10/08/22 History venlafaxine 75 mg capsule,extended 150 mg PO DAILY 05/08/21 10/09/22 10/09/22 History release 24 hr azelastine 137 mcg (0.1 %) nasal 1 spray intranasal BID 09/26/21 10/07/22 10/08/22 History spray aerosol albuterol sulfate 90 mcg/actuation 1 inh inhalation QID PRN shortness 10/11/21 10/07/22 10/08/22 Rx aerosol inhaler (Ventolin HFA) of breath or wheezing #8.5 grams clopidogrel 75 mg tablet (Plavix) 75 mg PO DAILY #100 tabs 11/19/21 10/07/22 10/05/22 Rx guaifenesin 400 mg tablet 400 mg PO TID 01/07/22 10/09/22 Unknown History donepezil 10 mg tablet 10 mg PO BEDTIME 03/14/22 10/07/22 10/05/22 History fluticasone 100 mcg-salmeterol 50 1 inh inhalation BID #60 ea 03/21/22 10/07/22 10/05/22 Rx mcg/dose blistr powdr for inhalation (Advair Diskus) folic acid 1 mg tablet 1 mg PO DAILY #90 tabs 06/03/22 10/07/22 10/05/22 Rx biotin 5,000 mcg disintegrating 10,000 mcg PO DAILY 07/03/22 10/07/22 10/08/22 History tablet cholecalciferol (vitamin D3) 25 25 mcg PO DAILY 07/03/22 10/09/22 10/05/22 History mcg (1,000 unit) capsule losartan 25 mg tablet 12.5 mg PO DAILY 07/03/22 10/09/22 10/08/22 History primidone 50 mg tablet See Rx Instructions .Route 07/03/22 10/09/22 10/08/22 Rx .COMPLEX #180 tabs methotrexate sodium 2.5 mg tablet 10 mg PO .week Rheumatoid 08/06/22 09/11/22 Unknown Rx Arthritis 4 months #80 tabs potassium chloride 8 mEq 8 meq PO DAILY #90 tabs 08/06/22 10/09/22 10/08/22 Rx tablet,extended release hydralazine 10 mg tablet See Rx Instructions .Route 08/21/22 10/09/22 10/09/22 Rx .COMPLEX #1,080 tabs lithium carbonate 300 mg tablet See Rx Instructions .Route 09/12/22 10/09/22 10/08/22 Rx .COMPLEX #180 tabs atorvastatin 80 mg tablet (Lipitor) 80 mg PO DAILY 10/07/22 10/07/22 10/08/22 History Allergies Allergy/AdvReac Type Severity Reaction Status Date / Time No Known Allergies Allergy Verified 10/09/22 10:02 PFSH PFSH: Medical History Benign essential hypertension Bipolar disorder BPH loc w urin obs/LUTS COPD (chronic obstructive pulmonary disease) Coronary artery disease Dementia Generalized osteoarthritis Hearing loss High risk medication use Hypothyroidism Immunization counseling Impaired cognition Inflammatory arthritis Myocardial infarction Myocardial infarction acute 08/31/21 tx at [facility] with 2 stents placed Palpitations Plaque psoriasis Psoriatic arthritis Spondylolisthesis Tinnitus Surgical History History of appendectomy History of back surgery History of cholecystectomy History of knee surgery History of left knee replacement History of PTCA Hx of neck surgery Family History Mother , at age 62 Cancer Breast,bone Father , at age 92 CHF (congestive heart failure) Other Hypertension Denies family history of Rheumatoid arthritis Diabetes Lupus CAD (coronary artery disease) Clotting disorder Dementia Chronic kidney disease (CKD) Systemic lupus erythematosus (SLE) in adult Suicide Anesthesia complication Bleeding disorder Family history of premature coronary artery disease Lung disease Stroke Social History Smoking and tobacco status: former smoker Quit status (tobacco): has quit using tobacco Former quit date comment: 1ppd x 10 years and marijuana use, started at age 16 years Alcohol intake: never Marital status: service: Yes status: Discharged branch: [employer] branch details: [place] timeframe Current occupational status: retired History of recent travel: No Dietary Habits: Caffeine: Yes Caffeine intake frequency: carbonated beverages Vital Signs Vitals Signs: Last Vital Signs Temp 97.7 F 10/09/22 09:53 Pulse 60 10/09/22 09:53 Resp 18 10/09/22 09:53 BP 161/84 10/09/22 09:53 Pulse Ox 94 10/09/22 09:53 O2 Del Method 10/09/22 10:19 Weight: Weight last 48 hrs Weight 200 lb Physical Exam Narrative: EXAM NARRATIVE: GENERAL: Patient is alert and oriented ?3 and in no acute distress.? The following is a focused bilateral lower extremity exam. VASCULAR: Dorsalis pedis and posterior tibial arteries palpable +2.? Capillary refill time less than 3 seconds to the distal hallux bilaterally. Calf is supple and nontender proximally and distally.? No pedal edema appreciated.? Pedal hair growth present. NEUROLOGICAL: Epicritic and protopathic sensations grossly intact to the lower extremities.? +2 Achilles tendon reflex noted bilaterally.? Negative Tinel sign upon percussion of lower extremity nerves. DERMATOLOGICAL: Lower extremity skin is well-hydrated, normal texture and turgor.? There are no open sores or lesions noted to the lower extremities.? No erythema or ecchymosis present to the bilateral legs and feet. MUSCULOSKELETAL: Pain to palpation at bilateral first metatarsal phalangeal joint.? First metatarsal phalangeal joint dorsiflexion is less than 5 degrees of dorsiflexion with osseous and range of motion to the right and less than 5 degrees of dorsiflexion with osseous and range of motion to the left.? Tenderness to palpation at the bilateral first metatarsal phalangeal joint left greater than right.? Osseous prominence at the first metatarsal phalangeal joint dorsally bilaterally. CARDIOVASCULAR: S1, S2, normal rate, normal rhythm.? Dorsalis pedis and posterior tibial arteries palpable. LUNGS: Clear to auscltation, no use of acessory muscles, no crackles or wheezes. A&P Assessment and plan (1) Left foot pain: (2) Hallux rigidus, left foot: Plan Juan Larsen is a 72 year old male presents with pain to the left great toe joint that has been progressive over the course of several years and is no longer responding to conservative treatment. His pain is graded as a 7 out of 10 and becomes sharp stabbing with increased activity and while resting his achy and throbbing. He has noticed a significant decrease in range of motion his left great toe and has bony spurring visibly tenting his skin that also causes pain when wearing shoes. Conservative treatments have included anti-inflammatories, orthopedic shoes, orthotics, stretching and activity modifications without relief.. Patient examined and evaluated, findings and treatment options were discussed with patient at length.? Patient has had a steady progression of pain and decreased range of motion at the first metatarsal phalangeal joint left and right.? Left is more symptomatic.? He has end-stage hallux rigidus.? Less than 5 degrees of dorsiflexion with osseous and range of motion appreciated left and right first metatarsal phalangeal bone.? He has tenderness to palpation at the first metatarsal phalangeal joint left and right.? Antalgic gait noted on exam.? Patient has already failed orthotics, supportive shoes, anti-inflammatories and activity modifications.? Would like to discuss surgical options.? Discussed both joint preserving and joint destructive procedures.? Patient leaning more towards a arthrodesis as a more definitive solution in his case.? He would like to have his left foot fixed first followed by the right.? He is anticipating surgery on October 10, 2021 for left first metatarsophalangeal joint arthrodesis.? Planning on holding his Plavix 5 days before surgery.? I reviewed at length with the patient, the risks, potential complications, benefits, alternatives, expectations, and typical outcomes associated with the surgery. The risks and potential complications were explained in detail, including but not limited to infection, wound dehiscence or soft tissue complications, bleeding and hematoma, chronic edema, neuritis or nerve damage producing numbness or chronic pain, CRPS, failure to relieve pain or worsening pain, thick / painful / unsightly scar, limited motion / stiffness, malposition, delayed union, malunion, or nonunion, fracture, reaction to implants, anesthetic complications, venous thromboembolism, and deformity recurrence.? I discussed the notion of no regrets with the patient as it pertains to complications and outcomes. The patient seemed to understand the nature of the proposed care and required convalescence. They asked appropriate questions, answered to their satisfaction. They are aware no guarantees can be made as to a satisfactory outcome and they understand there may be other possible unforeseen complications or outcomes not listed here that will be treated accordingly if they arise. There were no written or implied guarantees given to the patient. They gave informed consent to proceed. Left first metatarsophalangeal joint fusion, October 10, 2021, outpatient, local MAC versus LMA per anesthesia.? Supine, david, ed C arm, [place] 28, 60-minute tourniquet time. Coding Level of Care Code Acute Code for Chg Fwd Diagnoses Left foot pain M79.672 Hallux rigidus, left foot M20.22
--- NOTE | 2022-10-09 10:34 | P.OP_ITS ---
Operative Report Date of procedure: October 09, 2022 Pre-op diagnosis: Preop Diagnosis Left hallux rigidus Post-op diagnosis: Left hallux rigidus Post-op findings: Arthrosis of the left first metatarsal phalangeal joint Procedure done: Left first metatarsal phalangeal joint fusion. CPT 18369 Implants: Spade primary first MTPJ arthrodesis plate with 2.7 mm locking screws distally and 3.5 mm locking and nonlocking screws proximally. 3-0 Vicryl, 4-0 Vicryl, 4- 0 nylon Specimens removed/disposition: None Pathology: None Surgeon: Black Stark D.P.M. Campaign Fundraiser: Valeriy Estimated blood loss: 5 38 IV fluids: 0 Urine output: 0 Complications: None Brief History: Juan Larsen is a 72 year old male presents with pain to the left great toe joint that has been progressive over the course of several years and is no longer responding to conservative treatment.? His pain is graded as a 7 out of 10 and becomes sharp stabbing with increased activity and while resting his achy and throbbing.? He has noticed a significant decrease in range of motion his left great toe and has bony spurring visibly tenting his skin that also causes pain when wearing shoes.? Conservative treatments have included anti-inflammatories, orthopedic shoes, orthotics, stretching and activity modifications without relief.. Patient examined and evaluated, findings and treatment options were discussed with patient at length.? Patient has had a steady progression of pain and decreased range of motion at the first metatarsal phalangeal joint left and right.? Left is more symptomatic.? He has end-stage hallux rigidus.? Less than 5 degrees of dorsiflexion with osseous and range of motion appreciated left and right first metatarsal phalangeal bone.? He has tenderness to palpation at the first metatarsal phalangeal joint left and right.? Antalgic gait noted on exam.? Patient has already failed orthotics, supportive shoes, anti-inflammatories and activity modifications.? Would like to discuss surgical options.? Discussed both joint preserving and joint destructive procedures.? Patient leaning more towards a arthrodesis as a more definitive solution in his case.? He would like to have his left foot fixed first followed by the right.? He is anticipating surgery on October 10, 2021 for left first metatarsophalangeal joint arthrodesis.? Planning on holding his Plavix 5 days before surgery.? I reviewed at length with the patient, the risks, potential complications, benefits, alternatives, expectation s, and typical outcomes associated with the surgery. The risks and potential complications were explained in detail, including but not limited to infection, wound dehiscence or soft tissue complications, bleeding and hematoma, chronic edema, neuritis or nerve damage producing numbness or chronic pain, CRPS, failure to relieve pain or worsening pain, thick / painful / unsightly scar, limited motion / stiffness, malposition, delayed union, malunion, or nonunion, fracture, reaction to implants, anesthetic complications, venous thromboembolism, and deformity recurrence.? I discussed the notion of no regrets with the patient as it pertains to complications and outcomes. The patient seemed to understand the nature of the proposed care and required convalescence. They asked appropriate questions, answered to their satisfaction. They are aware no guarantees can be made as to a satisfactory outcome and they understand there may be other possible unforeseen complications or outcomes not listed here that will be treated accordingly if they arise. There were no written or implied guarantees given to the patient. They gave informed consent to proceed. Procedure: Under mild sedation the patient was brought to the operating room and remained on the gurney in supine position. A timeout was performed. Anesthesia was then administered by the anesthesia service. Local anesthesia injected by myself consisting of 10 cc of 0.5% Marcaine plain in a left Coffey block fashion and 5 cc of Exparel infiltrated subcutaneously in a good like fashion at the operative site. Well-padded pneumatic tourniquet was applied to the left ankle. The left lower extremity was then scrubbed, prepped and draped utilizing normal aseptic technique. The left foot was then exanguinated with an Esmarch bandage and the tourniquet was inflated to 250 mmHg. Attention was directed to the dorsal medial aspect of the left first metatarsal phalangeal joint where osseous bossing was appreciated dorsally and decreased dorsiflexion also appreciated intraoperatively with osseous and range of motion. Surgical incision was planned out this was a linear longitudinal incision medial and parallel to the extensor houses longus tendon directly over the first metatarsal phalange joint which was then carried out utilizing a #15 blade through skin with dissection carried down through subcutaneous tissue to the layer of periosteum and joint capsule utilizing sharp and blunt technique. Care was taken to retract and preserve neurovascular and tendinous structures. All bleeders were ligated and cauterized as necessary. A linear capsulotomy was performed in the head of the first metatarsal and base of the proximal phalanx were freed from their soft tissue and capsular attachments and denuded of all articular surface utilizing cone and cup reamers. Incision was flushed with sign solution and the head of the first metatarsal base of the proximal phalanx was prepped for arthrodesis utilizing a fenestrating drill bit. The hallux was held in slight valgus, slight dorsiflexion and neutral position in the frontal plane with toenail at 12:00 followed by fixation utilizing a primary arthrodesis first metatarsophalangeal joint plate by Robin with excellent bony apposition and compression noted. The distal cluster of 3 screw holes were filled utilizing 2.7 mm locking screws in the proximal plate was filled with a total of 2 locking screws and 1 nonlocking screw with excellent bony apposition and compression noted and anatomic position maintained. Fluoroscopy in the AP, oblique and lateral views confirmed excellent placement of hardware not violating adjacent joints or being proud. The incision was then flushed with copious amounts of sterile skin solution. The capsule and periosteum reapproximated utilizing 3-0 Vicryl. Subcutaneous tissue was reapproximated utilizing 4-0 Vicryl and skin with 4-0 nylon. The incision was then dressed with Adaptic, sterile 4 x 4's, Kerlix and Aubrey wrap. A cam boot was then applied to the left lower extremity and the tourniquet was deflated and a prompt hyperemic response was noted to the distal digits of the left foot. Patient tolerated the procedure and anesthesia well and was transferred to the PACU with vital signs stable and vascular status intact. Following a period of postop monitoring he will be discharged home is to be nonweightbearing to the left foot.
[2022-10-09] MEDS: ceFAZolin 2,000 MG in sodium chloride 0.9% (plus) 50 ML 100 MG IV (10:55)
[2022-10-09] MEDS: HYDROcodone-acetaminophen 10-325 mg Tablet 1 TAB PO (12:51)
--- NOTE | 2022-10-09 14:25 | ANE.PACU2 ---
Inpatient post-anesthesia follow up: Airway intact: Yes Vital signs: Temperature 97.9 F Pulse Rate 62 Respiratory Rate 16 Blood Pressure 155/76 Pulse Oximetry 97 Oxygen Delivery Me thod Room Air Oxygen Flow Rate 8 Fraction of Inspir ed Oxygen Hydration adequate: Yes Nausea and vomiting: No Pain level: 1 Mental status: Baseline
== END 2022-10-09 13:15 | disposition home or self-care (01) ==
PROVIDERS: PCP Family Medicine; Visit Provider Podiatrist Foot & Ankle Surgery
PROC: (CPT 28750; principal; 2022-10-09 11:00)
DX: M20.22 Hallux rigidus, left foot (principal); I10 Essential (primary) hypertension; N40.1 Benign prostatic hyperplasia with lower urinary tract symptoms; N13.8 Other obstructive and reflux uropathy; I25.2 Old myocardial infarction; Z87.891 Personal history of nicotine dependence
CPT/HCPCS: 28750; 73620; 76000; C1713; C9290; J0690; J2704; J3490; J7030

== ENCOUNTER → 2022-10-17 13:43 | Outpatient (BNVA) | payer OTHER, SELFPAY | PROVIDERS: PCP Family Medicine; Visit Provider Podiatrist Foot & Ankle Surgery | DX: Z98.890 Other specified postprocedural states (principal) | CPT/HCPCS: 99024 ==

== ENCOUNTER → 2022-10-23 13:18 | Outpatient (BNVA) | payer OTHER, SELFPAY | PROVIDERS: PCP Family Medicine; Visit Provider Podiatrist Foot & Ankle Surgery | DX: N40.1 Benign prostatic hyperplasia with lower urinary tract symptoms (principal); N13.8 Other obstructive and reflux uropathy; R33.9 Retention of urine, unspecified; Z98.890 Other specified postprocedural states; M20.22 Hallux rigidus, left foot | CPT/HCPCS: 51798; 73630; 81003; 99024; 99213 ==

== ENCOUNTER → 2022-10-30 13:11 | Outpatient (BNVA) | payer OTHER, SELFPAY | PROVIDERS: PCP Family Medicine; Visit Provider Podiatrist Foot & Ankle Surgery | DX: Z98.890 Other specified postprocedural states (principal); M20.22 Hallux rigidus, left foot | CPT/HCPCS: 73630 ==

== ENCOUNTER 2022-10-30 15:35 | Outpatient (CLI) | payer OTHER, SELFPAY | END 2022-10-30 15:36 | disposition home or self-care (01) | LOC: SPT 15:37 | PROVIDERS: PCP Family Medicine; Visit Provider Podiatrist Foot & Ankle Surgery | DX: Z47.89 Encounter for other orthopedic aftercare (principal) | CPT/HCPCS: 99024; L4361 ==

== ENCOUNTER → 2022-11-11 13:27 | Outpatient (BNVA) | payer OTHER, SELFPAY | PROVIDERS: PCP Family Medicine; Visit Provider Internal Medicine Rheumatology | DX: L40.50 Arthropathic psoriasis, unspecified (principal); L40.0 Psoriasis vulgaris; Z79.899 Other long term (current) drug therapy; Z71.89 Other specified counseling | CPT/HCPCS: 99214 ==

== ENCOUNTER → 2022-11-20 13:07 | Outpatient (BNVA) | payer OTHER, SELFPAY | PROVIDERS: PCP Family Medicine; Visit Provider Podiatrist Foot & Ankle Surgery | DX: Z98.890 Other specified postprocedural states (principal) | CPT/HCPCS: 73630; 99024 ==

== ENCOUNTER → 2022-12-01 10:34 | Outpatient (BNVA) | payer OTHER, SELFPAY | PROVIDERS: PCP Family Medicine; Visit Provider Specialist | DX: T84.84XD Pain due to internal orthopedic prosthetic devices, implants and grafts, subsequent encounter (principal); M17.11 Unilateral primary osteoarthritis, right knee; Y79.2 Prosthetic and other implants, materials and accessory orthopedic devices associated with adverse incidents | CPT/HCPCS: 99213 ==

== ENCOUNTER → 2022-12-18 13:06 | Outpatient (BNVA) | payer OTHER, SELFPAY | PROVIDERS: PCP Family Medicine; Visit Provider Podiatrist Foot & Ankle Surgery | DX: M20.21 Hallux rigidus, right foot (principal) | CPT/HCPCS: 73630; 99214 ==

== ENCOUNTER → 2022-12-22 09:13 | Outpatient (BNVA) | payer OTHER, SELFPAY | PROVIDERS: PCP Family Medicine; Visit Provider Internal Medicine Pulmonary Disease | DX: J45.20 Mild intermittent asthma, uncomplicated (principal); I25.118 Atherosclerotic heart disease of native coronary artery with other forms of angina pectoris; Z91.09 Other allergy status, other than to drugs and biological substances; Z95.5 Presence of coronary angioplasty implant and graft; Z87.891 Personal history of nicotine dependence | CPT/HCPCS: 99214 ==

== ENCOUNTER 2023-01-09 08:34 | Day surgery (SDC) | payer OTHER, SELFPAY ==
[2023-01-08 10:34] VITALS: BMI 30.7
[2023-01-09] VITALS (7 sets, daily range): BP systolic 176–215; BP diastolic 76–106; PULSE 53–71; RESP 16–18; TEMP 36.1–36.4; O2SAT 94–100
--- NOTE | 2023-01-09 | XR_ITS ---
WS: [id number] XR foot RT min 3V* [id number] REASON FOR EXAM: SURGICAL PROCEDURE FINDINGS: Previously demonstrated valgus deformity with moderately severe osteoarthritis in the first tarsal me tatarsal joint. Dorsal plate and screw arthrodesis of the first tarsal metatarsal joint. Surgical appliances are intact and in proper position and alignment. XR/XR foot RT min 3V* [id number] IMPRESSION: Postoperative right foot as above.
--- NOTE | 2023-01-09 06:49 | P.OP_ITS ---
Operative Report Date of procedure: January 09, 2023 Pre-op diagnosis: Right hallux rigidus Post-op diagnosis: Right hallux rigidus Procedure done: Right first metatarsal phalangeal joint fusion. CPT code 81522 Implants: Killen first metatarsal phalangeal joint arthrodesis plate, locking, 5 degree 2.7 mm locking screw x3 3.5 mm locking screw x2 3.5 mm nonlocking screw 3-0 Vicryl 4-0 Vicryl 4-0 nylon Specimens removed/disposition: None Pathology: None Surgeon: Black Stark D.P.M. Electric Motor Assembler: See intraoperative documentation Estimated blood loss: 5 26 Procedure: Juan Larsen is a 72 year old male presents with pain to the right great toe joint that has been progressive over the course of several years and is no longer responding to conservative treatment.? His pain is graded as a 8 out of 10 and becomes sharp stabbing with increased activity and while resting his achy and throbbing.? He has noticed a significant decrease in range of motion his right great toe and has bony spurring visibly tenting his skin that also causes pain when wearing shoes.? Conservative treatments have included anti-inflammatories, orthopedic shoes, orthotics, stretching and activity modifications without relief. Patient examined and evaluated, findings and treatment options were discussed with patient at length.? Patient has had a steady progression of pain and decreased range of motion at the first metatarsal phalangeal joint, right foot.?He has end-stage hallux rigidus.? Less than 5 degrees of dorsiflexion with osseous and range of motion appreciated to the right first metatarsal phalangeal bone.? He has tenderness to palpation at the first metatarsal phalangeal joint, right foot.? Antalgic gait noted on exam.? Patient has already failed orthotics, supportive shoes, anti-inflammatories and activity modifications.? Would like to discuss surgical options.? Discussed both joint preserving and joint destructive procedures.? Patient leaning more towards a arthrodesis as a more definitive solution in his case.? Will holding his Plavix 5 days before surgery.? I reviewed at length with the patient, the risks, potential complications, benefits, alternatives, expectations, and typical outcomes associated with the surgery. The risks and potential complications were explained in detail, including but not limited to infection, wound dehiscence or soft tissue complications, bleeding and hematoma, chronic edema, neuritis or nerve damage producing numbness or chronic pain, CRPS, failure to relieve pain or worsening pain, thick / painful / unsightly scar, limited motion / stiffness, malposition, delayed union, malunion, or nonunion, fracture, reaction to implants, anesthetic complications, venous thromboembolism, and deformity recurrence.? I discussed the notion of no regrets with the patient as it pertains to complications and outcomes. The patient seemed to understand the nature of the proposed care and required convalescence. They asked appropriate questions, answered to their satisfaction. They are aware no guarantees can be made as to a satisfactory outcome and they understand there may be other possible unforeseen complications or outcomes not listed here that will be treated accordingly if they arise. There were no written or implied guarantees given to the patient. They gave informed consent to proceed. Procedure: Under mild sedation the patient was brought to the operating room and remained on the gurney in supine position.? A timeout was performed.? Anesthesia was then administered by the anesthesia service.? Local anesthesia injected by myself consisting of 20 cc of 0.5% Marcaine plain in a right Coffey block fashion and 5 cc of Exparel infiltrated subcutaneously in a grid like fashion at the operative site.? Well-padded pneumatic tourniquet was applied to the right ankle.? The rig ht lower extremity was then scrubbed, prepped and draped utilizing normal aseptic technique.? The right foot was then exanguinated with an Esmarch bandage and the tourniquet was inflated to 250 mmHg. Attention was directed to the dorsal medial aspect of the right first metatarsal phalangeal joint where osseous bossing was appreciated dorsally and decreased dorsiflexion also appreciated intraoperatively with osseous and range of motion.? Surgical incision was planned out this was a linear longitudinal incision medial and parallel to the extensor houses longus tendon directly over the first metatarsal phalange joint which was then carried out utilizing a #15 blade through skin with dissection carried down through subcutaneous tissue to the layer of periosteum and joint capsule utilizing sharp and blunt technique.? Care was taken to retract and preserve neurovascular and tendinous structures.? All bleeders were ligated and cauterized as necessary.? A linear capsulotomy was performed in the head of the first metatarsal and base of the proximal phalanx were freed from their soft tissue and capsular attachments and denuded of all articular surface utilizing cone and cup reamers.? Incision was flushed with sign solution and the head of the first metatarsal base of the proximal phalanx was prepped for arthrodesis utilizing a fenestrating drill bit.? The right hallux was held in slight valgus, slight dorsiflexion and neutral position in the frontal plane with toenail at 12:00 followed by fixation utilizing a primary arthrodesis first metatarsophalangeal joint plate by Robin with excellent bony apposition and compression noted.? The distal cluster of 3 screw holes were filled utilizing 2.7 mm locking screws in the proximal plate was filled with a total of 2 locking screws and 1 nonlocking screw with excellent bony apposition and compression noted and anatomic position maintained.? Fluoroscopy in the AP, oblique and lateral views confirmed excellent placement of hardware not violating adjacent joints or being proud.? The incision was then flushed with copious amounts of sterile skin solution.? The capsule and periosteum reapproximated utilizing 3-0 Vicryl.? Subcutaneous tissue was reapproximated utilizing 4-0 Vicryl and skin with 4-0 nylon.? The incision was then dressed with Adaptic, sterile 4 x 4's, Kerlix and Aubrey wrap.? A cam boot was then applied to the right lower extremity and the tourniquet was deflated and a prompt hyperemic response was noted to the distal digits of the right foot.? Patient tolerated the procedure and anesthesia well and was transferred to the PACU with vital signs stable and vascular status intact.? Following a period of postop monitoring he will be discharged home is to be nonweightbearing to the right foot.
--- NOTE | 2023-01-09 06:49 | W.PM.OPSUD ---
Surgery/Procedure H&P Update DATE OF PROCEDURE: January 09, 2023 DATE H&P PERFORMED: 12/18/22 CHANGES TO PREVIOUS DOCUMENTATION: None PLANNED PROCEDURE: Operation Date: 01/09/23 10:00 Proposed Procedures p Right first metatarsal phalangeal joint fusion 99994, M20.21(Right) - Black Stark DPM
[2023-01-09] MEDS: sodium chloride 0.9% 1,000 ML 100 ML IV (09:00)
[2023-01-09] MEDS: ceFAZolin 2,000 MG in sodium chloride 0.9% (plus) 50 ML 100 MG IV (09:04)
[2023-01-09] MEDS: sodium chloride 0.9% 1,000 ML 30 ML IV (09:05)
--- NOTE | 2023-01-09 09:12 | ANES.PREANE2 ---
Pre-Anesthetic Assessment Height/Weight: Height 1.7 m Weight 88.904 kg Temp Pulse Resp BP Pulse Ox O2 Del Method 97.5 F L 56 L 18 181/105 96 Room Air 01/09/23 09:02 01/09/23 09:02 01/09/23 09:02 01/09/23 09:02 01/09/23 09:02 01/09/23 09:02 Preop Diagnosis: Left bunion. Left hallux rigidus. Operation Date: 01/09/23 10:00 Proposed Procedures p Right first metatarsal phalangeal joint fusion 28922, M20.21(Right) - Black Stark DPM Familial anesthetic complications: none Was Beta Giles taken within 24 hours: N/A Was Clonidine taken within 24 hours: N/A Last intake: Intake Last Liquid Date 01/09/23 Last Liquid Time 02:00 Last Solid Date 01/08/23 Last Solid Time 23:00 Social No alcohol and No tobacco Exam alert, oriented x 3, clear to auscultation bilaterally and regular rate & rhythm Airway Submandibular: within normal limits Cervical ROM: within normal limits Mallampati: Class II Dentition: false Comments: Comments: heavy haas Pulmonary Asthma CV/HEM Arrythmia, Coronary Artery Disease and Hypertension GI Gastroesophageal Reflux Disease Metabolic Diabetes Mellitus, Hyperlipidemia and Thyroid Disease [facility] [place] Osteoarthritis/DJD inflammatory arthritis Anesthetic Plan ASA status: 3 Anesthesia: Choice Medications/Allergies Home Medications Medication Instructions Recorded Confirmed Last Taken Type aspirin 81 mg tablet,delayed 81 mg PO DAILY 11/01/19 01/08/23 3 Days Ago History release (Adult Low Dose Aspirin) ~01/05/23 levothyroxine 112 mcg tablet 112 mcg PO DAILY 11/01/19 01/08/23 01/08/23 History magnesium oxide 400 mg PO DAILY 03/27/21 01/08/23 1 Day Ago History ~01/07/23 multivitamin 1 tab PO DAILY 03/27/21 01/08/23 1 Day Ago History ~01/07/23 omega-3 fatty acids 1,000 mg 1,000 mg PO DAILY 03/27/21 01/08/23 1 Day Ago History capsule (Fish Oil Concentrate) ~01/07/23 venlafaxine 75 mg capsule,extended 150 mg PO DAILY 05/08/21 01/08/23 01/08/23 History release 24 hr azelastine 137 mcg (0.1 %) nasal 1 spray intranasal BID 09/26/21 01/08/23 1 Day Ago History spray aerosol ~01/07/23 albuterol sulfate 90 mcg/actuation 1 inh inhalation QID PRN shortness 10/11/21 01/08/23 1 Day Ago Rx aerosol inhaler (Ventolin HFA) of breath or wheezing #8.5 grams ~01/07/23 clopidogrel 75 mg tablet (Plavix) 75 mg PO DAILY #100 tabs 11/19/21 01/08/23 3 Days Ago Rx ~01/05/23 guaifenesin 400 mg tablet 400 mg PO TID 01/07/22 01/08/23 Unknown History biotin 5,000 mcg disintegrating 10,000 mcg PO DAILY 07/03/22 01/08/23 1 Day Ago History tablet ~01/07/23 cholecalciferol (vitamin D3) 25 25 mcg PO DAILY 07/03/22 01/08/23 1 Day Ago History mcg (1,000 unit) capsule ~01/07/23 potassium chloride 8 mEq 8 meq PO DAILY #90 tabs 08/06/22 01/08/23 1 Day Ago Rx tablet,extended release ~01/07/23 atorvastatin 80 mg tablet (Lipitor) 80 mg PO DAILY 10/07/22 01/08/23 1 Day Ago History ~01/07/23 Crutches #1 ea 10/10/22 12/18/22 Unknown Rx doxycycline hyclate 100 mg capsule 100 mg PO BID 10 days #20 caps 10/17/22 01/08/23 1 Day Ago Rx ~01/07/23 Short Cam Boot to the left- LARGE #1 ea 10/30/22 12/22/22 Unknown Rx folic acid 1 mg tablet 1 mg PO DAILY #90 tabs 11/11/22 01/08/23 1 Day Ago Rx ~01/07/23 methotrexate sodium 2.5 mg tablet 15 mg PO .week Rheumatoid 11/11/22 01/08/23 Unknown Rx Arthritis 4 months #120 tabs losartan 25 mg tablet 12.5 mg PO DAILY #45 tabs 11/24/22 01/08/23 01/08/23 Rx fluticasone 100 mcg-salmeterol 50 1 inh inhalation Q12H #60 ea 12/22/22 01/08/23 1 Day Ago Rx mcg/dose blistr powdr for ~01/07/23 inhalation donepezil 10 mg tablet 10 mg PO DAILY 01/09/23 01/09/23 01/08/23 History hydralazine 10 mg tablet 40 mg PO TID 01/09/23 01/09/23 1 Day Ago History ~01/07/23 lamotrigine 150 mg tablet 150 mg PO BID 01/09/23 01/09/23 01/08/23 History lithium carbonate 300 mg tablet 300 mg PO BID 01/09/23 01/09/23 01/08/23 History omeprazole 20 mg capsule,delayed 20 mg PO DAILY 01/09/23 01/09/23 01/08/23 History release primidone 50 mg tablet 100 mg PO DAILY 01/09/23 01/09/23 01/08/23 History Allergies Allergy/AdvReac Type Severity Reaction Status Date / Time No Known Allergies Allergy Verified 12/22/22 09:28 Current Medications Generic Name Dose Route Start Last Admin Trade Name Andrewq PRN Reason Stop Dose Admin Sodium Chloride 1,000 mls @ 30 mls/hr 01/09/23 08:45 01/09/23 09:05 Sodium Chloride 0.9% IV 01/10/23 08:44 30 mls/hr .Q24H FATMATA Administration Cefazolin Sodium 2,000 mg/ 50 mls @ 100 mls/hr 01/09/23 08:45 01/09/23 09:04 Sodium Chloride IV 01/09/23 09:14 100 mls/hr PHYSICAL THERAPY DIRECTOR ONE Administration PFSH Anesthesia Medical History Benign essential hypertension Bipolar disorder BPH loc w urin obs/LUTS COPD (chronic obstructive pulmonary disease) Coronary artery disease Dementia Generalized osteoarthritis Hearing loss High risk medication use Hypothyroidism Immunization counseling Impaired cognition Inflammatory arthritis Myocardial infarction Myocardial infarction acute 08/31/21 tx at [facility] with 2 stents placed Palpitations Plaque psoriasis Psoriatic arthritis Spondylolisthesis Tinnitus Surgical History History of appendectomy History of back surgery History of cholecystectomy History of knee surgery History of left knee replacement History of PTCA Hx of neck surgery Family History Mother , at age 62 Cancer Breast,bone Father , at age 92 CHF (congestive heart failure) Other Hypertension Denies family history of Rheumatoid arthritis Diabetes Lupus CAD (coronary artery disease) Clotting disorder Dementia Chronic kidney disease (CKD) Systemic lupus erythematosus (SLE) in adult Suicide Anesthesia complication Bleeding disorder Family history of premature coronary artery disease Lung disease Stroke Social History Smoking and tobacco status: former smoker Quit status (tobacco): has quit using tobacco Former quit date comment: 1ppd x 10 years and marijuana use, started at age 16 years Alcohol intake: never Substance/Drug Use: never Marital status: service: Yes status: Discharged branch: [employer] branch details: [place] timeframe Current occupational status: retired Data Anesthesia Cardiac Studies: Echocardiogram 10/03/21 Cardiac Event Monitor 01/02/22
[2023-01-09] MEDS: hyDRALAzine 20 mg/mL INJ 1 mL 10 MG IVP (10:00)
[2023-01-09] MEDS: HYDROcodone-acetaminophen 5-325 mg Tablet 1 TAB PO (11:20)
--- NOTE | 2023-01-09 12:52 | ANE.PACU2 ---
Inpatient post-anesthesia follow up: Airway intact: Yes Vital signs: Temperature 97.6 F Pulse Rate 62 Respiratory Rate 18 Blood Pressure 188/106 Pulse Oximetry 94 Oxygen Delivery Me thod Room Air Oxygen Flow Rate 8 Fraction of Inspir ed Oxygen Hydration adequate: Yes Nausea and vomiting: No Pain level: 1 Mental status: Baseline
== END 2023-01-09 11:25 | disposition home or self-care (01) ==
PROVIDERS: PCP Family Medicine; Visit Provider Podiatrist Foot & Ankle Surgery
PROC: (CPT 28750; principal; 2023-01-09 09:50)
DX: M20.21 Hallux rigidus, right foot (principal); E11.9 Type 2 diabetes mellitus without complications; I10 Essential (primary) hypertension; E78.5 Hyperlipidemia, unspecified; I25.10 Atherosclerotic heart disease of native coronary artery without angina pectoris; I25.2 Old myocardial infarction; K21.9 Gastro-esophageal reflux disease without esophagitis; J44.9 Chronic obstructive pulmonary disease, unspecified; E03.9 Hypothyroidism, unspecified; F03.90 Unspecified dementia, unspecified severity, without behavioral disturbance, psychotic disturbance, mood disturbance, and anxiety; Z79.82 Long term (current) use of aspirin; Z79.899 Other long term (current) drug therapy; Z87.891 Personal history of nicotine dependence
CPT/HCPCS: 28750; 73630; 76000; C1713; C9290; J0360; J0690; J2405; J2704; J3010; J3490; J7030

== ENCOUNTER → 2023-01-15 13:57 | Outpatient (BNVA) | payer OTHER, SELFPAY | PROVIDERS: PCP Family Medicine; Visit Provider Internal Medicine Cardiovascular Disease | DX: I25.118 Atherosclerotic heart disease of native coronary artery with other forms of angina pectoris (principal); R00.2 Palpitations; R00.1 Bradycardia, unspecified; M79.89 Other specified soft tissue disorders; R06.00 Dyspnea, unspecified; E78.5 Hyperlipidemia, unspecified; Z87.891 Personal history of nicotine dependence; I25.2 Old myocardial infarction; Z79.82 Long term (current) use of aspirin; I10 Essential (primary) hypertension; Z98.890 Other specified postprocedural states | CPT/HCPCS: 99024; 99214 ==

== ENCOUNTER → 2023-01-22 15:08 | Outpatient (BNVA) | payer OTHER, SELFPAY | PROVIDERS: PCP Family Medicine; Visit Provider Podiatrist Foot & Ankle Surgery | DX: Z98.890 Other specified postprocedural states (principal); L40.50 Arthropathic psoriasis, unspecified; Z79.899 Other long term (current) drug therapy | CPT/HCPCS: 36415; 73630; 80076; 82565; 85025; 86140; 99024 ==

== ENCOUNTER → 2023-02-04 11:05 | Outpatient (BNVA) | payer OTHER, SELFPAY | PROVIDERS: PCP Family Medicine; Visit Provider Podiatrist Foot & Ankle Surgery | DX: Z98.890 Other specified postprocedural states (principal) | CPT/HCPCS: 73630 ==

== ENCOUNTER 2023-02-04 14:38 | Outpatient (CLI) | payer OTHER, SELFPAY | END 2023-02-04 14:39 | disposition home or self-care (01) | LOC: SPT 14:38 | PROVIDERS: PCP Family Medicine; Visit Provider Podiatrist Foot & Ankle Surgery | DX: Z46.89 Encounter for fitting and adjustment of other specified devices (principal); Z98.890 Other specified postprocedural states | CPT/HCPCS: 97760; 99024; L3031 ==

== ENCOUNTER → 2023-02-10 14:05 | Outpatient (BNVA) | payer OTHER, SELFPAY | PROVIDERS: PCP Family Medicine; Visit Provider Internal Medicine Rheumatology | DX: L40.50 Arthropathic psoriasis, unspecified (principal); L40.0 Psoriasis vulgaris; Z79.899 Other long term (current) drug therapy; Z71.89 Other specified counseling | CPT/HCPCS: 99214 ==

== ENCOUNTER → 2023-02-19 11:17 | Outpatient (BNVA) | payer OTHER, SELFPAY | PROVIDERS: PCP Family Medicine; Visit Provider Podiatrist Foot & Ankle Surgery | DX: Z98.890 Other specified postprocedural states (principal) | CPT/HCPCS: 73630; 99024 ==

== ENCOUNTER 2023-03-11 14:23 | Outpatient (RCR) | payer OTHER, SELFPAY | END 2023-03-13 23:59 | disposition home or self-care (01) | LOC: SPT 14:23 | PROVIDERS: Visit Provider Podiatrist Foot & Ankle Surgery | DX: Z47.89 Encounter for other orthopedic aftercare (principal) | CPT/HCPCS: 97161 ==

== ENCOUNTER → 2023-03-19 13:20 | Outpatient (BNVA) | payer OTHER, SELFPAY | PROVIDERS: Visit Provider Podiatrist Foot & Ankle Surgery | DX: Z98.890 Other specified postprocedural states (principal) | CPT/HCPCS: 73630; 99024 ==

== ENCOUNTER 2023-04-04 01:37 | Emergency (ER) | payer OTHER, SELFPAY ==
[2023-04-04 01:37] VITALS: BP 143/91; PULSE 80; RESP 18; TEMP 37.6; O2SAT 94; BMI 31.3
--- NOTE | 2023-04-04 01:45 | CTR_ITS ---
PROCEDURE INFORMATION: Exam: CT Head Without Contrast Exam date and time: 04/04/2023 2:10 AM Age: 73 years old Clinical indication: Altered mental status/memory loss and fever; Confusion or disorientation; Patient HX: Fever with confusion; Additional info: AMS TECHNIQUE: Imaging protocol: Computed tomography of the head without contrast. Radiation optimization: All CT scans at this facility use at least one of these dose optimization techniques: automated exposure control; mA and/or kV adjustment per patient size (includes targeted exams where dose is matched to clinical indication); or iterative reconstruction. REPORTING DATA: Count of CT and Cardiac NM exams in prior 12 months: This patient has received 0 known CTs and 0 known cardiac nuclear medicine studies in the 12 months prior to the current study. COMPARISON: NM bone scan whole body* [id number] 09/29/2022 8:53 AM RADIATION DOSE METRICS: Total DLP (mGy-cm): 1169.39 FINDINGS: Brain: Mild cerebral atrophy and ischemic leukoencephalopathy. Cerebral ventricles: No ventriculomegaly. Pituitary gland and sella: Partial empty sella with CSF signal fluid filling more than half of the sella and associated decreased pituitary volume with a concave superior surface. Partial empty sella syndrome is an incidental chronic finding which is usually asymptomatic, however it can be associated with idiopathic intracranial hypertension. Paranasal sinuses: Visualized sinuses are unremarkable. No fluid levels. Mastoid air cells: Visualized mastoid air cells are well aerated. Bones/joints: Unremarkable. No acute fracture. Soft tissues: Unremarkable. CT/CT head wo con* [id number] IMPRESSION: No acute intracranial findings.
--- NOTE | 2023-04-04 01:45 | XRR_ITS ---
PROCEDURE INFORMATION: Exam: XR Chest Exam date and time: 04/04/2023 1:48 AM Age: 73 years old Clinical indication: Prior surgery; Surgery date: 6+ months; Surgery type: Gb; Patient HX: C/O fever TECHNIQUE: Imaging protocol: Radiologic exam of the chest. Views: 1 view. COMPARISON: CT chest w con* [id number] 04/11/2021 8:58 AM FINDINGS: Lungs: Unremarkable. No consolidation. Pleural spaces: Unremarkable. No pleural effusion. No pneumothorax. Heart/Mediastinum: Unremarkable. No cardiomegaly. Bones/joints: Stable postoperative metallic fixation of the cervical spine with or without metallic artifact. Dextroscoliosis. XR/XR chest 1V portable [id number] IMPRESSION: No acute findings.
[2023-04-04] MEDS: sodium chloride 0.9% 1,000 ML 999 ML IV (01:52)
[2023-04-04 01:56] VITALS: BP 127/71; PULSE 77; RESP 18; O2SAT 93
[2023-04-04 01:57] LABS: Basophils % 0.3 %; Eosinophils % 0.1 %; Hemoglobin 12.9 g/dL (11.7-16.6); Lymphocytes # 0.8 10^3/uL (0.8-4.8); Lymphocytes % 5.8 %; Mean Corpuscular HGB Conc 32.3 g/dL (30.0-36.0); Mean Corpuscular Hemoglobin 30.1 pg (28.0-34.0); Mean Corpuscular Volume 93.5 fl (80-94); Mean Platelet Volume 10.9 fL (7.4-10.4); Monocytes # 0.8 10^3/uL (0.2-0.9); Monocytes % 5.3 %; Neutrophils # 12.31 10^3/uL (1.8-7.7); Neutrophils % 87.7 %; Nucleated Red Blood Cells % 0 %; Platelet Count 190 10^3/cmm (130-400); Red Blood Count 4.28 10^6/uL (4.1-5.3); Red Cell Distribution Width 16.7 % (12.1-15.1)
--- NOTE | 2023-04-04 02:02 | W.ED.FEVER ---
HPI - Fever General: Chief Complaint: Fever Stated Complaint: N/V Time Seen by Provider: 04/04/23 01:38 Source: patient and EMS Mode of arrival: ambulatory Limitations: no limitations History of Present Illness: 73-year-old male who states that he got out of bed in the [place] and slid because he is wearing fuzzy socks states he was unable to get back up. Per EMS he has had a low-grade fever temp here is 99 7 per family has had some slight confusion here he does appear confused but is able answer my questions he knows the year he is able answer all my questions it just takes him some time. He denies any pain anywhere denies any vomiting or diarrhea or cough. Associated symptoms: Deny abdominal pain, chills, chest pain, diarrhea, headache(s), nausea or vomiting Review of Systems Const: Reports: fever(s); Denies: chills, body aches or change in appetite ENMT: Denies: throat pain or dental pain Card: Denies: chest pain Resp: Denies: dyspnea GI: Denies: abdominal pain, nausea, vomiting or diarrhea Musc: Denies: neck pain or back pain Skin/Breast: Denies: rash Neuro: Denies: headache(s) PFSH ED PFSH: Medical History Benign essential hypertension Bipolar disorder BPH loc w urin obs/LUTS COPD (chronic obstructive pulmonary disease) Coronary artery disease Dementia Generalized osteoarthritis Hearing loss High risk medication use Hypothyroidism Immunization counseling Impaired cognition Inflammatory arthritis Myocardial infarction Myocardial infarction acute 08/31/21 tx at [facility] with 2 stents placed Palpitations Plaque psoriasis Psoriatic arthritis Spondylolisthesis Tinnitus Surgical History History of appendectomy History of back surgery History of cholecystectomy History of knee surgery History of left knee replacement History of PTCA Hx of neck surgery Family History Mother , at age 62 Cancer Breast,bone Father , at age 92 CHF (congestive heart failure) Other Hypertension Denies family history of Rheumatoid arthritis Diabetes Lupus CAD (coronary artery disease) Clotting disorder Dementia Chronic kidney disease (CKD) Systemic lupus erythematosus (SLE) in adult Suicide Anesthesia complication Bleeding disorder Family history of premature coronary artery disease Lung disease Stroke Social History Smoking and tobacco status: former smoker Quit status (tobacco): has quit using tobacco Former quit date comment: 1ppd x 10 years and marijuana use, started at age 16 years Alcohol intake: never Substance/Drug Use: never Marital status: service: Yes status: Discharged branch: [employer] branch details: [place] timeframe Current occupational status: retired Physical Exam Const: COMMON NORMALS: no acute distress, patient oriented x3 and healthy appearing HENMT: COMMON NORMALS: normocephalic and atraumatic HEAD & SCALP: normocephalic and atraumatic Eye: COMMON NORMALS: Equal, round and reactive pupils present and EOMs intact bilaterally PUPIL: Yes Equal, round and reactive pupils present Neck/C-Spine: COMMON NORMALS: full ROM and supple Chest: COMMONS NORMALS: normal inspection of the chest and normal palpation of entire chest wall Resp: COMMON NORMALS: normal respiratory effort, No retractions, No use of accessory muscles and clear to auscultation bilaterally AUSCULTATION: clear to auscultation bilaterally Cardio: COMMON NORMALS: regular rate, regular rhythm and No murmurs present (Cardio) RATE: regular rate RHYTHM: regular rhythm GI: COMMON NORMALS: Normal to inspection, nondistended, normoactive bowel sounds present, Soft to palpation, non-tender and no masses PALPATION: Yes Soft to palpation Extremity: COMMON NORMALS: normal to inspection and full ROM Neuro: COMMON NORMALS: patient oriented x3, moves all extremities and no focal motor deficits Psych: COMMON NORMALS: mental status grossly normal, Normal thought process present and cooperative THOUGHT PROCESS: Normal thought process present Skin: COMMON NORMALS: no rashes or lesions noted and no wounds GENERAL SKIN EXAM: no rashes or lesions noted Course Vital Signs: Vital signs: Vital Signs Temperature 99.7 F H 04/04/23 01:37 Pulse Rate 57 L 04/04/23 04:10 Respiratory Rate 18 04/04/23 04:10 Blood Pressure 101/58 04/04/23 04:10 Pulse Oximetry 93 04/04/23 04:10 Oxygen Delivery Me thod Room Air 04/04/23 04:10 MDM - Fever Medical Decision Making Patient presents here with low-grade fever along with some generalized weakness he is able to ambulate here blood work here is normal signs of mild leukocytosis no signs of sepsis no source found. His vital signs here been normal he is stable for discharge he is to follow-up with PCP and return if worsening. Medical Records I reviewed the patient's medical records. Lab Data I reviewed the patient's lab results. 04/04/23 01:15 04/04/23 01:15 Radiology Impressions Chest X-Ray 04/04/23 01:45 IMPRESSION: No acute findings. Head CT 04/04/23 01:45 IMPRESSION: No acute intracranial findings. Laboratory Results WBC 14.0 10^3/uL (4.0-10.0) H 04/04/23 01:15 RBC 4.28 10^6/uL (4.1-5.3) 04/04/23 01:15 Hgb 12.9 g/dL (11.7-16.6) 04/04/23 01:15 Hct 40.0 % (42.0-52.0) L 04/04/23 01:15 MCV 93.5 fl (80-94) 04/04/23 01:15 MCH 30.1 pg (28.0-34.0) 04/04/23 01:15 MCHC 32.3 g/dL (30.0-36.0) 04/04/23 01:15 RDW 16.7 % (12.1-15.1) H 04/04/23 01:15 Plt Count 190 10^3/cmm (130-400) 04/04/23 01:15 MPV 10.9 fL (7.4-10.4) H 04/04/23 01:15 Neut % (Auto) 87.7 % 04/04/23 01:15 Lymph % (Auto) 5.8 % 04/04/23 01:15 [place] % (Auto) 5.3 % 04/04/23 01:15 Eos % (Auto) 0.1 % 04/04/23 01:15 Baso % (Auto) 0.3 % 04/04/23 01:15 Neut # (Auto) 12.31 10^3/uL (1.8-7.7) H 04/04/23 01:15 Lymph # (Auto) 0.8 10^3/uL (0.8-4.8) 04/04/23 01:15 [place] # (Auto) 0.8 10^3/uL (0.2-0.9) 04/04/23 01:15 Eos # (Auto) 0.0 10^3/uL (0.0-0.8) 04/04/23 01:15 Baso # (Auto) 0.0 10^3/uL (0.0-0.1) 04/04/23 01:15 Nucleated RBC % (auto) 0 % 04/04/23 01:15 Nucleated RBCs # 0.0 /100WBC 04/04/23 01:15 Sodium 139 mmol/L (136-145) 04/04/23 01:15 Potassium 3.3 mmol/L (3.5-5.1) L 04/04/23 01:15 Chloride 103 mmol/L (98-107) 04/04/23 01:15 Carbon Dioxide 22 mmol/L (22-29) 04/04/23 01:15 Anion Gap 17.3 (5-19) 04/04/23 01:15 BUN 9 mg/dL (8-23) 04/04/23 01:15 Creatinine 1.2 mg/dL (0.7-1.2) 04/04/23 01:15 GFR Calculation Not Reportable 04/04/23 01:15 Glucose 113 mg/dL (65-115) 04/04/23 01:15 POC Glucose 134 mg/dL (70-110) H 04/04/23 01:54 Calculated Osmolality 287 mOsm/kg (285-295) 04/04/23 01:15 Lactic Acid 1.5 mmol/L (0.5-2.2) 04/04/23 01:55 Calcium 8.7 mg/dL (8.5-10.5) 04/04/23 01:15 Total Bilirubin 0.5 mg/dL (0.15-1.2) 04/04/23 01:15 AST 16 U/L (0-40) 04/04/23 01:15 ALT 13 U/L (0-41) 04/04/23 01:15 Alkaline Phosphatase 77 U/L (40-130) 04/04/23 01:15 Total Protein 7.1 g/dL (6.6-8.7) 04/04/23 01:15 Albumin 4.5 g/dL (3.5-5.2) 04/04/23 01:15 Globulin 2.6 g/dL (1.3-4.6) 04/04/23 01:15 Urine Color Yellow (Yellow) 04/04/23 03:18 Urine Appearance Hazy (CLEAR) A 04/04/23 03:18 Urine pH 6 (5-7) 04/04/23 03:18 Ur Specific [place] 1.005 (1.005-1.030) 04/04/23 03:18 Urine Protein Neg (Negative) 04/04/23 03:18 Urine Glucose (UA) Norm (Normal) 04/04/23 03:18 Urine Ketones Negative (Negative) 04/04/23 03:18 Urine Blood Neg (Negative) 04/04/23 03:18 Urine Nitrate Negative (Negative) 04/04/23 03:18 Urine Bilirubin Neg (Negative) 04/04/23 03:18 Urine Urobilinogen Norm mg/dL (Negative) 04/04/23 03:18 Ur Leukocyte Esterase Negative (Negative) 04/04/23 03:18 SARS-CoV-2 Ag (Rapid) negative (Negative) 04/04/23 03:45 Discharge Plan Discharge Patient Disposition: Home Clinical Impression: Generalized weakness Condition: Stable Prescriptions: No Action levothyroxine 112 mcg tablet 112 mcg PO DAILY aspirin [Adult Low Dose Aspirin] 81 mg tablet,delayed release (DR/EC) 81 mg PO DAILY venlafaxine 75 mg capsule,extended release 24hr 150 mg PO DAILY multivitamin Tablet 1 tab PO DAILY omega-3 fatty acids [Fish Oil Concentrate] 1,000 mg capsule 1,000 mg PO DAILY azelastine 137 mcg (0.1 %) aerosol,spray 1 spray intranasal BID magnesium oxide 250 mg magnesium tablet 400 mg PO DAILY albuterol sulfate [Ventolin HFA] 90 mcg/actuation HFA aerosol inhaler 1 inh inhalation QID PRN (Reason: shortness of breath or wheezing) Qty: 8.5 3RF cholecalciferol (vitamin D3) 25 mcg (1,000 unit) capsule 25 mcg PO DAILY Rx Instructions: ran out 1 month ago biotin 5,000 mcg tablet,disintegrating 10,000 mcg PO DAILY folic acid 1 mg tablet 1 mg PO DAILY Qty: 90 3RF (DME) Short Cam Boot to the left- LARGE See Rx Instructions .Route .MEDSUPPLY Qty: 1 0RF Rx Instructions: As directed methotrexate sodium 2.5 mg tablet 15 mg PO .week 120 Days Qty: 120 0RF Hold Instructions: Doctor's Order hydrocodone-acetaminophen 5-325 mg tablet 1 tab PO Q6H PRN (Reason: pain) 7 Days Qty: 28 0RF fluticasone propion-salmeterol 100-50 mcg/dose blister with device 1 inh inhalation Q12H Qty: 60 3RF doxycycline hyclate 100 mg capsule 100 mg PO BID 10 Days Qty: 20 0RF (DME) Carbon fiber plate to right See Rx Instructions .Route .MEDSUPPLY Qty: 1 0RF Rx Instructions: As directed clopidogrel [Plavix] 75 mg tablet 75 mg PO DAILY Qty: 100 3RF guaifenesin 400 mg tablet 400 mg PO TID potassium chloride 8 mEq tablet extended release 8 meq PO DAILY Qty: 90 3RF (DME) Crutches See Rx Instructions .Route .MEDSUPPLY Qty: 1 0RF Rx Instructions: As directed by HOME losartan 25 mg tablet 12.5 mg PO DAILY Qty: 45 1RF lamotrigine 150 mg tablet 150 mg PO BID Rx Instructions: TAKE 1 TABLET TWICE DAILY hydralazine 10 mg tablet 40 mg PO TID Rx Instructions: TAKE 4 TABLETS THREE TIMES DAILY DIRECTED. primidone 50 mg tablet 100 mg PO DAILY Rx Instructions: TAKE 2 TABLETS BY MOUTH EVERY NIGHT donepezil 10 mg tablet 10 mg PO DAILY Rx Instructions: TAKE 1 TABLET EVERY NIGHT omeprazole 20 mg capsule,delayed release(DR/EC) 20 mg PO DAILY Rx Instructions: TAKE 1 CAPSULE ONE TIME DAILY FOR GERD lithium carbonate 300 mg tablet 300 mg PO BID Rx Instructions: TAKE 1 TABLET TWICE DAILY hydrocodone-acetaminophen 5-325 mg Tablet 1 tab PO Q4H PRN (Reason: Pain) atorvastatin [Lipitor] 80 mg tablet 80 mg PO DAILY Discharge Orders: Discharge ED (Routine); Ordered 04/04/23 Ordered By: Arnulfo Nino Referrals: Huy Retana MD [Primary Care Provider] - 1-3 days Discharge Diet: Advance as tolerated Discharge Activity: Resume usual activity Patient Instructions: Weakness (ED) Coding Level of Care Code ED Cigarette Filter Inspector for Daryl Ted
[2023-04-04 02:03] LABS: Glucose Point of Care 134 mg/dL (70-110)
[2023-04-04 02:10] LABS: Alanine Aminotransferase 13 U/L (0-41); Albumin Level 4.5 g/dL (3.5-5.2); Alkaline Phosphatase 77 U/L (40-130); Anion Gap 17.3 (5-19); Aspartate Amino Transferase 16 U/L (0-40); Blood Urea Nitrogen 9 mg/dL (8-23); Calcium 8.7 mg/dL (8.5-10.5); Carbon Dioxide 22 mmol/L (22-29); Chloride 103 mmol/L (98-107); Creatinine Clr Calc Pharmacy 57.1362; Globulin 2.6 g/dL (1.3-4.6); Glucose 113 mg/dL (65-115); Osmolality Calculated 287 mOsm/kg (285-295); Potassium 3.3 mmol/L (3.5-5.1); Sodium 139 mmol/L (136-145); Total Bilirubin 0.5 mg/dL (0.15-1.2); Total Protein 7.1 g/dL (6.6-8.7)
[2023-04-04] MEDS: acetaminophen 500 mg Tablet 1000 MG PO (02:20)
[2023-04-04 02:24] LABS: Lactic Sepsis W/Reflex 1.5 mmol/L (0.5-2.2)
[2023-04-04 03:28] LABS: Add Urine Microscopic? NO; Charge for UA Resulting for Rev
[2023-04-04 03:30] LABS: Bilirubin Urine Neg (Negative); Blood Urine Neg (Negative); Glucose Urine UA Norm (Normal); Ketones Urine Negative (Negative); Leukocyte Esterase Urine Negative (Negative); Nitrate Urine Negative (Negative); Protein Urine Neg (Negative); Specific Gravity, Urine 1.005 (1.005-1.030); Urine Appearance Hazy (CLEAR); Urine Color Yellow (Yellow); Urobilinogen Urine Norm (Negative); pH Urine 6 (5-7)
[2023-04-04 04:05] LABS: SARS Covid-2 Antigen negative (Negative)
[2023-04-04 04:10] VITALS: BP 101/58; PULSE 57; RESP 18; O2SAT 93
[2023-04-04 04:12] VITALS: BP 101/58; PULSE 58; RESP 18; O2SAT 93
== END 2023-04-04 04:21 | disposition home or self-care (01) ==
PROVIDERS: Family Medicine; Emergency Provider Emergency Medicine; PCP Family Medicine
DX: R53.1 Weakness (principal); Z79.82 Long term (current) use of aspirin; Z79.02 Long term (current) use of antithrombotics/antiplatelets; Z87.891 Personal history of nicotine dependence; J44.9 Chronic obstructive pulmonary disease, unspecified; I25.10 Atherosclerotic heart disease of native coronary artery without angina pectoris; F03.90 Unspecified dementia, unspecified severity, without behavioral disturbance, psychotic disturbance, mood disturbance, and anxiety; I25.2 Old myocardial infarction; Z20.822 Contact with and (suspected) exposure to COVID-19
CPT/HCPCS: 36415; 36416; 70450; 71045; 80053; 81003; 82962; 83605; 85025; 87040; 87426; 99285; J7030

== ENCOUNTER 2023-04-05 18:25 | Emergency (ER) | payer OTHER, SELFPAY ==
[2023-04-05 18:29] VITALS: BP 131/62; PULSE 76; RESP 15; TEMP 37.3; O2SAT 94
[2023-04-05 18:54] LABS: Basophils % 0.3 %; Eosinophils % 0.2 %; Hematocrit 37.4 % (42.0-52.0); Hemoglobin 11.9 g/dL (11.7-16.6); Lymphocytes # 0.8 10^3/uL (0.8-4.8); Lymphocytes % 6.9 %; Mean Corpuscular HGB Conc 31.8 g/dL (30.0-36.0); Mean Corpuscular Hemoglobin 29.8 pg (28.0-34.0); Mean Corpuscular Volume 93.7 fl (80-94); Mean Platelet Volume 10.8 fL (7.4-10.4); Monocytes # 0.4 10^3/uL (0.2-0.9); Monocytes % 3.9 %; Neutrophils # 9.98 10^3/uL (1.8-7.7); Neutrophils % 88.3 %; Nucleated Red Blood Cells % 0 %; Platelet Count 156 10^3/cmm (130-400); Red Blood Count 3.99 10^6/uL (4.1-5.3); Red Cell Distribution Width 16.8 % (12.1-15.1); White Blood Count 11.3 10^3/uL (4.0-10.0)
--- NOTE | 2023-04-05 19:11 | ECG_ITS ---
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 Measurements Intervals [place] Rate: 59 P: -39 SD: 169 QRS: 7 QRSD: 116 T: -35 QT: 430 QTc: 426 Interpretive Statements SINUS BRADYCARDIA MODERATE INTRAVENTRICULAR CONDUCTION DELAY [110+ ms QRS DURATION] NONSPECIFIC ST & T-WAVE ABNORMALITY Compared to ECG 02/02/2016 10:15:32 Intraventricular conduction delay now present T-wave abnormality now present Electronically Signed On 04-07-2023 17:37:16 CDT by Boone Mendoza M.D. [id number]
[2023-04-05 19:15] LABS: Alanine Aminotransferase 12 U/L (0-41); Alkaline Phosphatase 57 U/L (40-130); Anion Gap 14.9 (5-19); Aspartate Amino Transferase 21 U/L (0-40); Blood Urea Nitrogen 13 mg/dL (8-23); Calcium 8.7 mg/dL (8.5-10.5); Carbon Dioxide 21 mmol/L (22-29); Chloride 98 mmol/L (98-107); Globulin 2.4 g/dL (1.3-4.6); Glucose 104 mg/dL (65-115); Osmolality Calculated 272 mOsm/kg (285-295); Sodium 131 mmol/L (136-145); Total Bilirubin 0.4 mg/dL (0.15-1.2); Total Protein 6.4 g/dL (6.6-8.7)
[2023-04-05] MEDS: sodium chloride 0.9% 1,000 ML 999 ML IV (19:15)
--- NOTE | 2023-04-05 19:17 | W.ED.WEAKNES ---
HPI - Weakness General: Chief complaint: Weakness Stated complaint: weakness Time Seen by Provider: 04/05/23 18:39 Mode of arrival: EMS History of Present Illness: Patient arrived via EMS to the ER with complaints of weakness and diarrhea. Patient states the diarrhea is been going on for about the last 3 to 4 days along with the weakness. Patient slipped out of bed today and was unable to get up out of bed. Patient was seen in ER yesterday for similar symptoms and had a full work-up. Today the patient also thinks he is dehydrated. Review of Systems General: Reports: 10 or more systems reviewed and unremarkable except in HPI and below PFSH ED PFSH: Medical History Benign essential hypertension Bipolar disorder BPH loc w urin obs/LUTS COPD (chronic obstructive pulmonary disease) Coronary artery disease Dementia Generalized osteoarthritis Hearing loss High risk medication use Hypothyroidism Immunization counseling Impaired cognition Inflammatory arthritis Myocardial infarction Myocardial infarction acute 08/31/21 tx at [facility] with 2 stents placed Palpitations Plaque psoriasis Psoriatic arthritis Spondylolisthesis Tinnitus Surgical History History of appendectomy History of back surgery History of cholecystectomy History of knee surgery History of left knee replacement History of PTCA Hx of neck surgery Family History Mother , at age 62 Cancer Breast,bone Father , at age 92 CHF (congestive heart failure) Other Hypertension Denies family history of Rheumatoid arthritis Diabetes Lupus CAD (coronary artery disease) Clotting disorder Dementia Chronic kidney disease (CKD) Systemic lupus erythematosus (SLE) in adult Suicide Anesthesia complication Bleeding disorder Family history of premature coronary artery disease Lung disease Stroke Social History Smoking and tobacco status: former smoker Quit status (tobacco): has quit using tobacco Former quit date comment: 1ppd x 10 years and marijuana use, started at age 16 years Alcohol intake: never Substance/Drug Use: never Marital status: service: Yes status: Discharged branch: [employer] branch details: [place] timeframe Current occupational status: retired Physical Exam Const: COMMON NORMALS: no acute distress, average body habitus, patient oriented x3, no limitations, healthy appearing, alert and well nourished HENMT: COMMON NORMALS: normocephalic, atraumatic, hearing grossly normal bilaterally, external ears normal, Normal external nose present and moist oral mucous membranes HEAD & SCALP: normocephalic and atraumatic NOSE: Normal external nose present EXTERNAL EAR: Yes external ears normal Eye: COMMON NORMALS: Equal, round and reactive pupils present, EOMs intact bilaterally, conjunctivae normal and no scleral icterus CONJUNCTIVA: Yes conjunctivae normal PUPIL: Yes Equal, round and reactive pupils present Neck/C-Spine: COMMON NORMALS: full ROM, no lymphadenopathy, supple, no meningeal signs, no JVD and Thyroid normal THYROID: Thyroid normal Chest: COMMONS NORMALS: normal inspection of the chest and normal palpation of entire chest wall Resp: COMMON NORMALS: normal respiratory effort, No retractions, No use of accessory muscles and clear to auscultation bilaterally AUSCULTATION: clear to auscultation bilaterally Cardio: COMMON NORMALS: no JVD, regular rate, regular rhythm, S1 normal heart sound present, S2 normal heart sound present, No gallops present (Cardio), No clicks present (Cardio), No murmurs present (Cardio) and No rub (Cardio) RATE: regular rate RHYTHM: regular rhythm HEART SOUNDS: S1 normal heart sound present and S2 normal heart sound present GI: COMMON NORMALS: Normal to inspection, nondistended, normoactive bowel sounds present, Soft to palpation, non-tender, No hepatosplenomegaly present and no masses PALPATION: Yes Soft to palpation and Yes No hepatosplenomegaly present : COMMON NORMALS: Yes no CVA tenderness BLADDER/KIDNEY EXAM: Yes no CVA tenderness Back/Pelvis: COMMON NORMALS: no CVA tenderness Neuro: COMMON NORMALS: patient oriented x3 SENSORIUM/ORIENTATION: Yes alert MENINGEAL SIGNS: Yes no meningeal signs Course Vital Signs: Vital signs: Vital Signs Temperature 99.1 F 04/05/23 18:29 Pulse Rate 58 L 04/05/23 22:25 Respiratory Rate 16 04/05/23 22:25 Blood Pressure 122/60 04/05/23 22:25 Pulse Oximetry 98 04/05/23 22:25 Oxygen Delivery Me thod Room Air 04/05/23 18:29 MDM - Weakness Medical Decision Making With complaints of diarrhea and weakness. Patient was seen yesterday for similar episodes. Patient was given 1 L normal saline in attempt to help with hydration. Lab work was obtained which showed a potassium of 2.9 and BUN of 1.3 that this was decreased potassium from yesterday and elevated creatinine from yesterday. Patient does state he feels quite a bit better. Patient will be discharged home on more potassium to take orally as well as Cipro to potentially help with the diarrhea. Patient was given 40 mEq of potassium orally during his ER stay. Patient is to follow-up with his PCP in approximately 7 day Differential Diagnosis Unlikely acute myocardial infarction, anemia, hypoglycemia, hypothyroidism, rhabdomyolysis, sepsis or dehydration Medical Records I reviewed the patient's medical records. Lab Data I reviewed the patient's lab results. 04/05/23 18:45 04/05/23 18:45 Laboratory Results WBC 11.3 10^3/uL (4.0-10.0) H 04/05/23 18:45 RBC 3.99 10^6/uL (4.1-5.3) L 04/05/23 18:45 Hgb 11.9 g/dL (11.7-16.6) 04/05/23 18:45 Hct 37.4 % (42.0-52.0) L 04/05/23 18:45 MCV 93.7 fl (80-94) 04/05/23 18:45 MCH 29.8 pg (28.0-34.0) 04/05/23 18:45 MCHC 31.8 g/dL (30.0-36.0) 04/05/23 18:45 RDW 16.8 % (12.1-15.1) H 04/05/23 18:45 Plt Count 156 10^3/cmm (130-400) 04/05/23 18:45 MPV 10.8 fL (7.4-10.4) H 04/05/23 18:45 Neut % (Auto) 88.3 % 04/05/23 18:45 Lymph % (Auto) 6.9 % 04/05/23 18:45 [place] % (Auto) 3.9 % 04/05/23 18:45 Eos % (Auto) 0.2 % 04/05/23 18:45 Baso % (Auto) 0.3 % 04/05/23 18:45 Neut # (Auto) 9.98 10^3/uL (1.8-7.7) H 04/05/23 18:45 Lymph # (Auto) 0.8 10^3/uL (0.8-4.8) 04/05/23 18:45 [place] # (Auto) 0.4 10^3/uL (0.2-0.9) 04/05/23 18:45 Eos # (Auto) 0.0 10^3/uL (0.0-0.8) 04/05/23 18:45 Baso # (Auto) 0.0 10^3/uL (0.0-0.1) 04/05/23 18:45 Nucleated RBC % (auto) 0 % 04/05/23 18:45 Nucleated RBCs # 0.0 /100WBC 04/05/23 18:45 Sodium 131 mmol/L (136-145) L 04/05/23 18:45 Potassium 2.9 mmol/L (3.5-5.1) L 04/05/23 18:45 Chloride 98 mmol/L (98-107) 04/05/23 18:45 Carbon Dioxide 21 mmol/L (22-29) L 04/05/23 18:45 Anion Gap 14.9 (5-19) 04/05/23 18:45 BUN 13 mg/dL (8-23) 04/05/23 18:45 Creatinine 1.3 mg/dL (0.7-1.2) H 04/05/23 18:45 GFR Calculation Not Reportable 04/05/23 18:45 Glucose 104 mg/dL (65-115) 04/05/23 18:45 Calculated Osmolality 272 mOsm/kg (285-295) L 04/05/23 18:45 Calcium 8.7 mg/dL (8.5-10.5) 04/05/23 18:45 Magnesium 2.0 mg/dL (1.7-2.3) 04/05/23 18:45 Total Bilirubin 0.4 mg/dL (0.15-1.2) 04/05/23 18:45 AST 21 U/L (0-40) 04/05/23 18:45 ALT 12 U/L (0-41) 04/05/23 18:45 Alkaline Phosphatase 57 U/L (40-130) 04/05/23 18:45 Total Protein 6.4 g/dL (6.6-8.7) L 04/05/23 18:45 Albumin 4.0 g/dL (3.5-5.2) 04/05/23 18:45 Globulin 2.4 g/dL (1.3-4.6) 04/05/23 18:45 Urine Color Yellow (Yellow) 04/05/23 20:00 Urine Appearance Clear (CLEAR) 04/05/23 20:00 Urine pH 6 (5-7) 04/05/23 20:00 Ur Specific [place] 1.010 (1.005-1.030) 04/05/23 20:00 Urine Protein Neg (Negative) 04/05/23 20:00 Urine Glucose (UA) Norm (Normal) 04/05/23 20:00 Urine Ketones Negative (Negative) 04/05/23 20:00 Urine Blood Neg (Negative) 04/05/23 20:00 Urine Nitrate Negative (Negative) 04/05/23 20:00 Urine Bilirubin Neg (Negative) 04/05/23 20:00 Urine Urobilinogen Norm mg/dL (Negative) 04/05/23 20:00 Ur Leukocyte Esterase Negative (Negative) 04/05/23 20:00 EKG Data EKG 1: I personally reviewed and interpreted this EKG as follows: EKG interpretation date: 04/05/23 EKG interpretation time: 19:11 Prior EKG tracings: not available for review Interpretation: EKG shows sinus bradycardia with a ventricular rate of 59 bpm, IA interval 169, QRS duration 116, QTc 428, moderate intraventricular conduction delay, nonspecific ST and T wave abnormalities Discharge Plan Discharge Patient Disposition: Home Clinical Impression: Acute hypokalemia, Generalized weakness Diarrhea Qualifiers: Diarrhea type: unspecified type Qualified Code(s): R19.7 - Diarrhea, unspecified Condition: Stable Prescriptions: New ciprofloxacin HCl 500 mg tablet 500 mg PO Q12H Qty: 14 0RF potassium chloride 20 mEq tablet extended release 20 meq PO BID Qty: 14 0RF No Action levothyroxine 112 mcg tablet 112 mcg PO DAILY aspirin [Adult Low Dose Aspirin] 81 mg tablet,delayed release (DR/EC) 81 mg PO DAILY venlafaxine 75 mg capsule,extended release 24hr 150 mg PO DAILY multivitamin Tablet 1 tab PO DAILY omega-3 fatty acids [Fish Oil Concentrate] 1,000 mg capsule 1,000 mg PO DAILY azelastine 137 mcg (0.1 %) aerosol,spray 1 spray intranasal BID magnesium oxide 250 mg magnesium tablet 400 mg PO DAILY albuterol sulfate [Ventolin HFA] 90 mcg/actuation HFA aerosol inhaler 1 inh inhalation QID PRN (Reason: shortness of breath or wheezing) Qty: 8.5 3RF cholecalciferol (vitamin D3) 25 mcg (1,000 unit) capsule 25 mcg PO DAILY Rx Instructions: ran out 1 month ago biotin 5,000 mcg tablet,disintegrating 10,000 mcg PO DAILY folic acid 1 mg tablet 1 mg PO DAILY Qty: 90 3RF (DME) Short Cam Boot to the left- LARGE See Rx Instructions .Route .MEDSUPPLY Qty: 1 0RF Rx Instructions: As directed methotrexate sodium 2.5 mg tablet 15 mg PO .week 120 Days Qty: 120 0RF Hold Instructions: Doctor's Order hydrocodone-acetaminophen 5-325 mg tablet 1 tab PO Q6H PRN (Reason: pain) 7 Days Qty: 28 0RF fluticasone propion-salmeterol 100-50 mcg/dose blister with device 1 inh inhalation Q12H Qty: 60 3RF doxycycline hyclate 100 mg capsule 100 mg PO BID 10 Days Qty: 20 0RF (DME) Carbon fiber plate to right See Rx Instructions .Route .MEDSUPPLY Qty: 1 0RF Rx Instructions: As directed clopidogrel [Plavix] 75 mg tablet 75 mg PO DAILY Qty: 100 3RF guaifenesin 400 mg tablet 400 mg PO TID potassium chloride 8 mEq tablet extended release 8 meq PO DAILY Qty: 90 3RF (DME) Crutches See Rx Instructions .Route .MEDSUPPLY Qty: 1 0RF Rx Instructions: As directed by HOME losartan 25 mg tablet 12.5 mg PO DAILY Qty: 45 1RF lamotrigine 150 mg tablet 150 mg PO BID Rx Instructions: TAKE 1 TABLET TWICE DAILY hydralazine 10 mg tablet 40 mg PO TID Rx Instructions: TAKE 4 TABLETS THREE TIMES DAILY DIRECTED. primidone 50 mg tablet 100 mg PO DAILY Rx Instructions: TAKE 2 TABLETS BY MOUTH EVERY NIGHT donepezil 10 mg tablet 10 mg PO DAILY Rx Instructions: TAKE 1 TABLET EVERY NIGHT omeprazole 20 mg capsule,delayed release(DR/EC) 20 mg PO DAILY Rx Instructions: TAKE 1 CAPSULE ONE TIME DAILY FOR GERD lithium carbonate 300 mg tablet 300 mg PO BID Rx Instructions: TAKE 1 TABLET TWICE DAILY hydrocodone-acetaminophen 5-325 mg Tablet 1 tab PO Q4H PRN (Reason: Pain) atorvastatin [Lipitor] 80 mg tablet 80 mg PO DAILY Discharge Orders: Discharge ED (Routine); Ordered 04/05/23 Ordered By: Luis Antonio Morin Referrals: Huy Retana MD [Primary Care Provider] - 1 week Patient Instructions: Hypokalemia, Acute Diarrhea (ED), Weakness (Generalized) Activity Restrictions/Additional Instructions: Take all your medicine as directed. Please follow-up with your primary care doctor approximately 7 days for reevaluation of your hypokalemia. Coding Level of Care Code ED Gym Supervisor for Mag Jean
[2023-04-05 19:21] LABS: Potassium 2.9 mmol/L (3.5-5.1)
[2023-04-05] MEDS: potassium chloride ER 20 mEq Tablet 40 MEQ PO (19:45)
[2023-04-05 19:46] VITALS: BP 125/68; PULSE 71; RESP 16; O2SAT 95
[2023-04-05 20:12] LABS: Add Urine Microscopic? NO; Charge for UA Resulting for Rev
[2023-04-05 20:23] LABS: Bilirubin Urine Neg (Negative); Blood Urine Neg (Negative); Glucose Urine UA Norm (Normal); Ketones Urine Negative (Negative); Leukocyte Esterase Urine Negative (Negative); Nitrate Urine Negative (Negative); Protein Urine Neg (Negative); Urine Appearance Clear (CLEAR); Urine Color Yellow (Yellow); Urobilinogen Urine Norm (Negative); pH Urine 6 (5-7)
[2023-04-05 20:57] VITALS: BP 128/65; PULSE 60; RESP 16; O2SAT 97
[2023-04-05 22:25] VITALS: BP 122/60; PULSE 58; RESP 16; O2SAT 98
[2023-04-05 22:36] LABS: Lithium 0.4 mmol/L (0.6-1.2)
[2023-04-05 22:53] VITALS: BP 122/60; PULSE 58; RESP 16; TEMP 37.3; O2SAT 98
== END 2023-04-05 22:54 | disposition home or self-care (01) ==
PROVIDERS: Emergency Provider Emergency Medicine; PCP Family Medicine
DX: R53.1 Weakness (principal); E87.6 Hypokalemia; R19.7 Diarrhea, unspecified; Z79.82 Long term (current) use of aspirin; Z79.02 Long term (current) use of antithrombotics/antiplatelets; Z87.891 Personal history of nicotine dependence; I10 Essential (primary) hypertension; J44.9 Chronic obstructive pulmonary disease, unspecified; I25.10 Atherosclerotic heart disease of native coronary artery without angina pectoris; F03.90 Unspecified dementia, unspecified severity, without behavioral disturbance, psychotic disturbance, mood disturbance, and anxiety; I25.2 Old myocardial infarction
CPT/HCPCS: 80053; 80178; 81003; 83735; 85025; 93005; 96360; 99284; J7030

== ENCOUNTER → 2023-04-08 09:21 | Outpatient (BNVA) | payer OTHER, MEDICARE, SELFPAY | PROVIDERS: PCP Family Medicine; Visit Provider Family Medicine | DX: R19.7 Diarrhea, unspecified (principal); R53.1 Weakness; E87.6 Hypokalemia; M20.21 Hallux rigidus, right foot | CPT/HCPCS: 80053; 85025 ==

== ENCOUNTER → 2023-05-29 09:11 | Outpatient (BNVA) | payer MEDICARE, SELFPAY | PROVIDERS: PCP Family Medicine; Visit Provider Clinical Nurse Specialist Adult Health | DX: J06.9 Acute upper respiratory infection, unspecified (principal); A04.5 Campylobacter enteritis | CPT/HCPCS: 87426 ==

== ENCOUNTER → 2023-06-02 11:37 | Outpatient (BNVA) | payer MEDICARE, SELFPAY | PROVIDERS: PCP Family Medicine; Visit Provider Internal Medicine Rheumatology | DX: L40.50 Arthropathic psoriasis, unspecified (principal); Z79.899 Other long term (current) drug therapy; L40.0 Psoriasis vulgaris; Z71.89 Other specified counseling | CPT/HCPCS: 99214 ==

== ENCOUNTER → 2023-06-04 15:08 | Outpatient (BNVA) | payer MEDICARE, SELFPAY | PROVIDERS: PCP Family Medicine; Visit Provider Family Medicine | DX: A04.5 Campylobacter enteritis (principal); J06.9 Acute upper respiratory infection, unspecified; E78.5 Hyperlipidemia, unspecified | CPT/HCPCS: 80053; 85025 ==

== ENCOUNTER → 2023-06-11 13:27 | Outpatient (BNVA) | payer MEDICARE, SELFPAY | PROVIDERS: PCP Family Medicine; Visit Provider Podiatrist Foot & Ankle Surgery | DX: Z98.890 Other specified postprocedural states (principal) | CPT/HCPCS: 99213 ==

== ENCOUNTER → 2023-07-27 15:33 | Outpatient (BNVA) | payer MEDICARE, SELFPAY | PROVIDERS: PCP Family Medicine; Visit Provider Internal Medicine Cardiovascular Disease | DX: R07.9 Chest pain, unspecified (principal); R00.1 Bradycardia, unspecified; I25.118 Atherosclerotic heart disease of native coronary artery with other forms of angina pectoris; M79.89 Other specified soft tissue disorders; R06.02 Shortness of breath; R00.2 Palpitations; E78.5 Hyperlipidemia, unspecified; Z87.891 Personal history of nicotine dependence | CPT/HCPCS: 93005; 99214 ==

== ENCOUNTER → 2023-08-18 10:22 | Outpatient (BNVA) | payer OTHER, SELFPAY | PROVIDERS: PCP Family Medicine; Visit Provider Psychiatry & Neurology Neurology | DX: R25.1 Tremor, unspecified (principal) | CPT/HCPCS: 99203 ==

== ENCOUNTER 2023-08-20 15:30 | Outpatient (CLI) | payer OTHER, SELFPAY ==
--- NOTE | 2023-08-20 15:30 | USCV_ITS ---
Juan Larsen Age: 73 Gender: M : 1950 Exam Date: 08/20/2023 16:05 Ordering Phys: Sathya Manrique MD Technologist: Alejandra Glez Exam Location: [facility] [place] Indication: PT HAS TREMORS Risk Factors: Pt has cad with stent placement in heart Previous Vascular Surgery: None in neck Right Brachial BP: / Left Brachial BP: / Right Left Velocity (cm/s) Spectral Plaque Velocity (cm/s) Spectral Plaque Syst/Diast Broadening Syst/Diast Broadening 68.40/ 15.40 Prox CCA 54.40 / 17.90 57.50/ 17.10 Mid CCA 56.70 / 16.30 55.90/ 18.60 Hetro Distal CCA 40.40 / 10.90 Hetro 31.80/ 14.00 Hetro Prox ICA 45.10 / 21.80 Hetro 31.10/ 10.90 Mid ICA 47.50 / 18.10 53.60/ 23.30 Distal ICA 44.50 / 19.60 72.20 Hetro ECA 55.90 Hetro 0.93 ICA/CCA 0.84 Antegrade Vertebral Antegrade 32.50/ 10.70 cm/s 39.40/ 11.60 cm/s Tri Subclavian Bi 73.80 83.00 FINDINGS Mild to moderate plaques at the bifurcations and proximal internal carotid arteries bilaterally Normal Doppler flow velocities Normal Doppler waveforms Antegrade flow in the vertebral arteries bilaterally Normal Doppler flow velocities in the external carotid, vertebral and subclavian arteries bilaterally CONCLUSIONS Mild to moderate plaques at the bifurcations and proximal internal carotid arteries bilaterally suggesting less than 50% stenosis bilaterally. No evidence of any significant stenosis in the subclavian, vertebral and external carotid arteries bilaterally Dr Dara Enriquez MD [facility] (Electronically Signed) Final Date: 21 August 2023 14:30 S
== END 2023-08-20 15:31 | disposition home or self-care (01) ==
LOC: RAD 15:31
PROVIDERS: PCP Family Medicine; Visit Provider Psychiatry & Neurology Neurology
DX: R25.1 Tremor, unspecified (principal); I65.23 Occlusion and stenosis of bilateral carotid arteries; I99.9 Unspecified disorder of circulatory system
CPT/HCPCS: 93880

== ENCOUNTER 2023-08-26 11:56 | Outpatient (CLI) | payer OTHER, SELFPAY ==
--- NOTE | 2023-08-26 12:03 | USCV_ITS ---
Juan Larsen Age: 73 Gender: M : 1950 Exam Date: 08/26/2023 12:14 Ordering Phys: Tracey Feliciano MD Technologist: MANAV Exam Location: [facility] [place] Indication: EVAL FOR AAA HISTORY: Diameter (cm) AP x Transverse x Length Velocity (cm/s) Waveform Prox Aorta: 2.19 x 2.76 x 82.60 Triphasic Mid Aorta: 1.93 x 1.87 x 68.60 Triphasic Distal Aorta: 1.74 x 1.57 x 85.10 Triphasic Right Iliac Prox: 0.86 x 0.89 x 84.30 Triphasic Left Iliac Prox: 0.92 x 0.77 x 102.50 Triphasic Stent Prox Landing x x Aneurysmal Sac Max x x Lt Lat Sac Dim Rt Lat Sac Dim Stent Dist Landing x x Right Iliac Stent x x Left Iliac Stent x x Right Renal Art Left Renal Art FINDINGS: CONCLUSIONS No evidence of abdominal aortic or bilateral iliac aneurysm. Mild atheromatous plaque Albert Orr MD (Electronically Signed) Final Date: 26 August 2023 16:39 S
== END 2023-08-26 11:57 | disposition home or self-care (01) ==
LOC: RAD 11:57
PROVIDERS: PCP Family Medicine; Visit Provider Family Medicine
DX: Z13.6 Encounter for screening for cardiovascular disorders (principal); Z87.891 Personal history of nicotine dependence; I70.0 Atherosclerosis of aorta
CPT/HCPCS: 76706

== ENCOUNTER 2023-09-15 15:00 | Outpatient (CLI) | payer OTHER, SELFPAY ==
--- NOTE | 2023-09-15 15:15 | MR_ITS ---
WS: [id number] MRI HEAD WITHOUT CONTRAST TECHNIQUE: Sagittal T1, T2 axial, T2 axial FLAIR, axial and coronal T1 images, axial susceptibility w eighted imaging, axial diffusion weighted images, and coronal T2 images were obtained. CLINICAL INFORMATION: R25.1 - Tremor, unspecified COMPARISON: CT head 04/04/2023 FINDINGS: No evidence of restricted diffusion to suggest acute ischemia. Ventricular system and basal cisterns are patent. Mild small vessel changes. Mild parenchymal volume loss worse in the frontal lobes. Alessandra l posterior fossa. Normal vascular flow voids at the skull base. No extra-axial fluid collections. No evidence of mass or mass effect. Paranasal sinuses are well aerated. Mild mucosal thickening RIGHT m astoid air cells. Normal posterior nasopharynx. No hemosiderin on the susceptibly weighted images. Normal optic chiasm and pituitary infundibulum. Mi ld symmetric atrophy temporal lobes and hippocampal formations. No other suspicious findings. IMPRESSION: 1. No evidence of restricted diffusion to suggest acute ischemia. 2. Mild small vessel changes with mild parenchymal volume loss worse in the frontal lobes. 3. No hemosiderin on susceptibility-weighted images. 4. Mild mucosal thickening RIGHT mastoid tip.
== END 2023-09-15 15:01 | disposition home or self-care (01) ==
LOC: RAD 15:00
PROVIDERS: PCP Family Medicine; Visit Provider Psychiatry & Neurology Neurology
DX: R25.1 Tremor, unspecified (principal); I99.9 Unspecified disorder of circulatory system
CPT/HCPCS: 70551

== ENCOUNTER 2023-09-17 08:55 | Outpatient (CLI) | payer OTHER, SELFPAY ==
--- NOTE | 2023-09-17 | ECG_ITS ---
[facility] Test Date: 2023-09-17 Pat Name: Juan Larsen Department: Room: Gender: Male Plan Manager: Ruma eMrrill : 1950 Requested By: Dara Enriquez Order Number: [id number] Reading MD: Dara Enriquez M.D. Interpretive Statements NAME OF STUDY: LEXISCAN SESTAMIBI STRESS TEST INDICATION: ASHD/Fatigue, PROCEDURE: At the baseline, the EKG revealed normal sinus rhythm with a nonspecific T wave changes. The baseline heart was 69 bpm with a blood pressue of 164/92 mm of Hg Lexiscan was infused over a period of 20 seconds. A total of 0.4 milligrams of Lexiscan was infused. The stress phase was continued for a total of 5 minutes. Heart rate at the end of the stress phase was 81 bpm with a blood pressure 157/75 mm of Hg. The EKG at the peak infusion revealed no significant changes. Sestamibi was injected 20 seconds after the Lexiscan infusion. Heart rate at the end of the recovery phase was 64 bpm with a blood pressure of 149/79 mm of Hg. CONCLUSION: 1. No significant EKG changes with the LexiScan infusion 2. No LexiScan induced chest pain or cardiac arrhythmia 3. Normal blood pressure and heart rate response 4. Sestamibi/sestamibi perfusion scan pending; see separate report. Electronically Signed On 09-25-2023 16:16:28 VACUUM WORKER by Dara Enriquez M.D. [email or web address]
[2023-09-17 10:03] VITALS: BMI 29.7
--- NOTE | 2023-09-17 10:06 | NMCV_ITS ---
NM vandana perf SPECT r/s* [id number] Juan Larsen Age: 73 Gender: M : 1950 Exam Date: 09/17/2023 10:06 Ordering Phys: Dara Enriquez MD ([email or web address]) Technologist: LIZZETTE Rodriguez Exam Location: [facility] Indications: CORONARY ANGIOPLASTY STATUS STRESS TEST Please see separate stress test report in [facility] for full findings IMAGE PROTOCOL Rest/Stress 1 Lexiscan Day Radiopharmaceutical Dose (mCi) Administration Site Administered by Rest: Tc-99m 11.0 IV LIZZETTE Mercado Sestamibi Stress:Tc-99m 32.5 IV LIZZETTE Mercado Sestamibi Rest: 17-Sep-2023 60 Discovery 630 Stress: 17-Sep-2023 30 Discovery 630 0.4mg Lexiscan. Supine position only as patient was unable to lay prone. SPECT RESULTS Technical Quality: Excellent Raw Data Analysis: Normal Image Corrections: No attenuation or motion correction applied Summed Stress Score: 0 Summed Rest Score: 5 Summed Difference Score: 0 PERFUSION FINDINGS Moderate area of slightly decreased tracer uptake was noted in the basal and mid inferior wall region with no significant reversibility FUNCTIONAL RESULTS (calculated via Gated SPECT) Stress Image LV EF (%): 69 Stress EDV (mL):81 TID: 1.07 Stress ESV (mL):25 FUNCTIONAL FINDINGS: Segmental wall motion analysis revealing no gross wall motion abnormalities IMPRESSIONS 1. Myocardial perfusion imaging revealing moderate area of slightly decreased persistent tracer uptake in the basal and mid inferior wall region, most likely are present attrition artifact 2. Normal LV ejection fraction of 69% 3. LV wall motion analysis revealing no gross wall motion abnormalities. 4. Normal LV volume Low probability for coronary ischemia, based on the above findings Dr Dara Enriquez MD [facility] (Electronically Signed) Final Date: 17 September 2023 12:32 S
[2023-09-17] MEDS: regadenoson 0.4 Mg/5 ml Syringe IVP (11:01)
[2023-09-17 11:10] VITALS: BP 149/79; PULSE 67
[2023-09-17 14:16] LABS: Basophils # 0.1 10^3/uL (0.0-0.1); Basophils % 0.9 %; Eosinophils # 0.2 10^3/uL (0.0-0.8); Eosinophils % 2.7 %; Hematocrit 40.9 % (37-53); Lymphocytes # 2.2 10^3/uL (0.8-4.8); Lymphocytes % 31.2 %; Mean Corpuscular HGB Conc 32.3 g/dL (30-55); Mean Corpuscular Hemoglobin 30.3 pg (27-33); Mean Corpuscular Volume 93.8 fl (82-101); Mean Platelet Volume 10.5 fL (7.4-10.4); Monocytes # 0.9 10^3/uL (0.2-0.9); Monocytes % 12.4 %; Neutrophils # 3.68 10^3/uL (1.8-7.7); Neutrophils % 52.5 %; Nucleated Red Blood Cells % 0 %; Platelet Count 178 10^3/cmm (157-399); Red Blood Count 4.36 10^6/uL (3.85-5.65); Red Cell Distribution Width 15.5 % (12.1-15.1); White Blood Count 7.01 10^3/uL (3.29-11.43)
[2023-09-17 14:35] LABS: Alanine Aminotransferase 14 U/L (0-41); Albumin Level 4.3 g/dL (3.5-5.2); Alkaline Phosphatase 68 U/L (40-130); Aspartate Amino Transferase 20 U/L (0-40); Blood Urea Nitrogen 13 mg/dL (8-23); Calcium 8.8 mg/dL (8.5-10.5); Carbon Dioxide 24 mmol/L (22-29); Chloride 103 mmol/L (98-107); Globulin 2.9 g/dL (1.3-4.6); Glucose 100 mg/dL (65-115); Osmolality Calculated 286 mOsm/kg (285-295); Sodium 138 mmol/L (136-145); Total Bilirubin 0.4 mg/dL (0.15-1.2); Total Protein 7.2 g/dL (6.6-8.7)
== END 2023-09-17 08:56 | disposition home or self-care (01) ==
LOC: CDL 08:56
PROVIDERS: Internal Medicine Rheumatology; Family Provider Family Medicine; PCP Family Medicine; Visit Provider Internal Medicine Cardiovascular Disease
DX: I25.10 Atherosclerotic heart disease of native coronary artery without angina pectoris (principal); R53.83 Other fatigue; Z79.899 Other long term (current) drug therapy; L40.50 Arthropathic psoriasis, unspecified; L40.0 Psoriasis vulgaris; Z98.61 Coronary angioplasty status; Z87.891 Personal history of nicotine dependence
CPT/HCPCS: 36415; 78452; 80053; 85025; 93017; 96374; 99214; A9500; J2785

== ENCOUNTER → 2023-09-21 09:07 | Outpatient (BNVA) | payer OTHER, SELFPAY | PROVIDERS: Family Provider Family Medicine; PCP Family Medicine; Visit Provider Internal Medicine Pulmonary Disease | DX: J45.20 Mild intermittent asthma, uncomplicated (principal); I25.118 Atherosclerotic heart disease of native coronary artery with other forms of angina pectoris; Z87.891 Personal history of nicotine dependence; Z95.5 Presence of coronary angioplasty implant and graft | CPT/HCPCS: 99214 ==

== ENCOUNTER 2023-12-18 12:34 | Emergency (ER) | payer OTHER, SELFPAY ==
[2023-12-18 12:35] VITALS: BP 170/83; PULSE 66; RESP 18; TEMP 36.3; O2SAT 96; BMI 31.3
[2023-12-18 14:37] LABS: Basophils # 0.1 10^3/uL (0.0-0.1); Basophils % 0.7 %; Eosinophils # 0.2 10^3/uL (0.0-0.8); Eosinophils % 2.2 %; Hematocrit 39.5 % (37-53); Lymphocytes # 2.2 10^3/uL (0.8-4.8); Lymphocytes % 26.2 %; Mean Corpuscular HGB Conc 32.4 g/dL (30-55); Mean Corpuscular Hemoglobin 32.8 pg (27-33); Mean Corpuscular Volume 101.3 fl (82-101); Mean Platelet Volume 10.1 fL (7.4-10.4); Monocytes % 12.2 %; Neutrophils # 4.96 10^3/uL (1.8-7.7); Neutrophils % 58.3 %; Nucleated Red Blood Cells % 0 %; Platelet Count 190 10^3/cmm (157-399); Red Cell Distribution Width 18.2 % (12.1-15.1); White Blood Count 8.51 10^3/uL (3.29-11.43)
--- NOTE | 2023-12-18 14:42 | ED_ITS ---
HPI - Nausea/Vomiting/Diarrhea 2 General: Chief complaint: Nausea/Vomiting/Diarrhea Stated complaint: abd pain Time Seen by Provider: 12/18/23 14:37 History of Present Illness: 73-year-old man with a history of COPD, coronary artery disease, hypothyroidism, dementia, hypertension, hyperlipidemia, arthritis who presents to the emergency room with diarrhea for several weeks now. He has been having issues with this for months. He says at 1 point he was diagnosed with Salmonella and treated. He said over the last 2 weeks he started having diarrhea. He says at times he barely makes it to the bathroom. He sat 3 episodes of diarrhea this morning. No focal abdominal pain. No fevers. No dizziness. No altered mental status. He says he came to the emergency room today because he had a day off from work. Other than what he took for the Salmonella several months back he has not been on any recent antibiotics. Review of Systems 2 Narrative: Constitutional symptoms: Negative except as documented in HPI. Skin symptoms: Negative except as documented in HPI. Eye symptoms: Negative except as documented in HPI. ENMT symptoms: Negative except as documented in HPI. Respiratory symptoms: Negative except as documented in HPI. Cardiovascular symptoms: Negative except as documented in HPI. Gastrointestinal symptoms: Negative except as documented in HPI. Genitourinary symptoms: Negative except as documented in HPI. Musculoskeletal symptoms: Negative except as documented in HPI. Neurologic symptoms: Negative except as documented in HPI. Psychiatric symptoms: Negative except as documented in HPI. Endocrine symptoms: Negative except as documented in HPI. PFSH ED 2 PFSH: Medical History Coronary artery disease Impaired cognition Hypothyroidism Dementia Hearing loss Tinnitus Palpitations Myocardial infarction Myocardial infarction acute 08/31/21 tx at [facility] with 2 stents placed COPD (chronic obstructive pulmonary disease) Bipolar disorder Benign essential hypertension Psoriatic arthritis BPH loc w urin obs/LUTS Immunization counseling High risk medication use Inflammatory arthritis Spondylolisthesis Plaque psoriasis Generalized osteoarthritis Surgical History Hx of cataract extraction History of left knee replacement Hx of neck surgery History of PTCA History of appendectomy History of cholecystectomy History of back surgery History of knee surgery Family History Mother , at age 62 Cancer Breast,bone Father , at age 92 CHF (congestive heart failure) Other Hypertension Denies family history of Rheumatoid arthritis Diabetes Lupus CAD (coronary artery disease) Clotting disorder Dementia Chronic kidney disease (CKD) Systemic lupus erythematosus (SLE) in adult Suicide Anesthesia complication Bleeding disorder Family history of premature coronary artery disease Lung disease Stroke Social History Smoking and tobacco/nicotine status: former use of tobacco/nicotine Quit status (tobacco/nicotine): has quit using Former quit date comment: 1ppd x 10 years and marijuana use, started at age 16 years Alcohol intake: never Substance/Drug Use: never Marital status: service: Yes 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 Skin: Warm, dry. Head: Normocephalic, atraumatic. Neck: Supple, trachea midline. Eye: Extraocular movements are intact. Ears, nose, mouth and throat: mucosa moist. Cardiovascular: Regular, Normal peripheral perfusion. Respiratory: Lungs are clear to auscultation, respirations are non-labored, breath sounds are equal, Symmetrical chest wall expansion. Gastrointestinal: Soft, Nontender, Non distended, Normal bowel sounds. Musculoskeletal: Normal ROM, no deformity. Neurological: Alert and oriented, No focal neurological deficit observed. Psychiatric: Cooperative, appropriate mood & affect. Course 2 Vital Signs: Vital signs: Vital Signs Temperature 97.4 F L 12/18/23 12:35 Pulse Rate 60 12/18/23 14:53 Respiratory Rate 18 12/18/23 14:53 Blood Pressure 156/100 12/18/23 14:53 Pulse Oximetry 93 12/18/23 14:53 Oxygen Delivery Me thod Room Air 12/18/23 14:53 MDM - Nausea/Vomiting/Diarrhea Medical Decision Making Medical decision making: Differential diagnosis including but not limited to and based on the above HPI, review of systems and physical exam: Will check for leukocytosis and renal failure. Will consider antibiotic therapy. Fluids if needed. He is hypertensive on presentation and not tachycardic so I do not believe he is extremely dehydrated. Orders placed to evaluate differential diagnosis based on the above differential, HPI and physical exam Lab Review: Laboratory results were reviewed and interpreted by myself the emergency room physician. Lab work is overly unremarkable. White count is 8. Hemoglobin is 12.8. BUN and creatinine are 11 and 1.2. Sodium is 141. Urinalysis is clear. Reexamination: Patient remained stable. No increased work of breathing. No altered mental status. No focal motor deficits. Lab Data 12/18/23 14:21 12/18/23 14:21 Laboratory Results WBC 8.51 10^3/uL (3.29-11.43) 12/18/23 14:21 RBC 3.90 10^6/uL (3.85-5.65) 12/18/23 14:21 Hgb 12.80 g/dL (11.27-16.99) 12/18/23 14:21 Hct 39.5 % (37-53) 12/18/23 14:21 MCV 101.3 fl (82-101) H 12/18/23 14:21 MCH 32.8 pg (27-33) 12/18/23 14: MCHC 32.4 g/dL (30-55) 12/18/23 14:21 RDW 18.2 % (12.1-15.1) H 12/18/23 14:21 Plt Count 190 10^3/cmm (157-399) 12/18/23 14:21 MPV 10.1 fL (7.4-10.4) 12/18/23 14: Neut % (Auto) 58.3 % 12/18/23 14:21 Lymph % (Auto) 26.2 % 12/18/23 14:21 [place] % (Auto) 12.2 % 12/18/23 14:21 Eos % (Auto) 2.2 % 12/18/23 14:21 Baso % (Auto) 0.7 % 12/18/23 14:21 Neut # (Auto) 4.96 10^3/uL (1.8-7.7) 12/18/23 14:21 Lymph # (Auto) 2.2 10^3/uL (0.8-4.8) 12/18/23 14:21 [place] # (Auto) 1.0 10^3/uL (0.2-0.9) H 12/18/23 14:21 Eos # (Auto) 0.2 10^3/uL (0.0-0.8) 12/18/23 14:21 Baso # (Auto) 0.1 10^3/uL (0.0-0.1) 12/18/23 14:21 Nucleated RBC % (auto) 0 % 12/18/23 14:21 Nucleated RBCs # 0.0 /100WBC 12/18/23 14:21 Sodium 141 mmol/L (136-145) 12/18/23 14:21 Potassium 3.7 mmol/L (3.5-5.1) 12/18/23 14:21 Chloride 106 mmol/L (98-107) 12/18/23 14:21 Carbon Dioxide 23 mmol/L (22-29) 12/18/23 14:21 Anion Gap 15.7 (5-19) 12/18/23 14:21 BUN 11 mg/dL (8-23) 12/18/23 14:21 Creatinine 1.2 mg/dL (0.7-1.2) 12/18/23 14:21 GFR Calculation Not Reportable 12/18/23 14:21 Glucose 103 mg/dL (65-115) 12/18/23 14:21 Calculated Osmolality 292 mOsm/kg (285-295) 12/18/23 14:21 Lactic Acid 1.9 mmol/L (0.5-2.2) 12/18/23 14:21 Calcium 9.4 mg/dL (8.5-10.5) 12/18/23 14:21 Total Bilirubin 0.5 mg/dL (0.15-1.2) 12/18/23 14:21 AST 22 U/L (0-40) 12/18/23 14:21 ALT 17 U/L (0-41) 12/18/23 14:21 Alkaline Phosphatase 65 U/L (40-130) 12/18/23 14:21 C-Reactive Protein 3.0 mg/L (0.0-4.9) 12/18/23 14:21 Total Protein 6.7 g/dL (6.6-8.7) 12/18/23 14:21 Albumin 4.3 g/dL (3.5-5.2) 12/18/23 14:21 Globulin 2.4 g/dL (1.3-4.6) 12/18/23 14:21 Urine Color Light yellow (Yellow) 12/18/23 15:25 Urine Appearance Clear (CLEAR) 12/18/23 15:25 Urine pH 6 (5-7) 12/18/23 15:25 Ur Specific [place] 1.010 (1.005-1.030) 12/18/23 15:25 Urine Protein Neg (Negative) 12/18/23 15:25 Urine Glucose (UA) Norm (Normal) 12/18/23 15:25 Urine Ketones Negative (Negative) 12/18/23 15:25 Urine Blood Neg (Negative) 12/18/23 15:25 Urine Nitrate Negative (Negative) 12/18/23 15:25 Urine Bilirubin Neg (Negative) 12/18/23 15:25 Urine Urobilinogen Neg mg/dL (Negative) 12/18/23 15:25 Ur Leukocyte Esterase Negative (Negative) 12/18/23 15:25 Urine RBC Rare /hpf (0-2) 12/18/23 15:25 Urine WBC Rare /hpf (0-5) 12/18/23 15:25 Ur Squamous Epith Cells Rare /hpf (0-5) 12/18/23 15:25 Amorphous Sediment Not Reportable 12/18/23 15:25 Urine Bacteria None /hpf (NONE) 12/18/23 15:25 No radiology studies performed this visit Other Data Assessment and plan: - Discharged home - Discussed findings and plan with patient. Answered any questions. - All laboratory values were reviewed and interpreted personally by myself, the ER physician - Evaluation and treatment of this problem were appropriate in the emergency setting Discharge Plan Discharge Patient Disposition: Home Clinical Impression: Diarrhea Condition: Stable Prescriptions: New metronidazole 500 mg tablet 500 mg PO Q8H 10 Days Qty: 30 0RF ciprofloxacin HCl 500 mg tablet 500 mg PO BID 10 Days Qty: 20 0RF ondansetron 8 mg tablet,disintegrating 8 mg PO .q6 PRN (Reason: nausea and vomiting) Qty: 14 0RF No Action levothyroxine 112 mcg tablet 112 mcg PO DAILY aspirin [Adult Low Dose Aspirin] 81 mg tablet,delayed release (DR/EC) 81 mg PO DAILY venlafaxine 75 mg capsule,extended release 24hr 150 mg PO DAILY multivitamin Tablet 1 tab PO DAILY omega-3 fatty acids [Fish Oil Concentrate] 1,000 mg capsule 1,000 mg PO DAILY azelastine 137 mcg (0.1 %) aerosol,spray 1 spray intranasal BID PRN (Reason: ALLERGIES) magnesium oxide 250 mg magnesium tablet 400 mg PO DAILY albuterol sulfate [Ventolin HFA] 90 mcg/actuation HFA aerosol inhaler 1 inh inhalation QID PRN (Reason: shortness of breath or wheezing) Qty: 8.5 3RF cholecalciferol (vitamin D3) 25 mcg (1,000 unit) capsule 25 mcg PO DAILY biotin 5,000 mcg tablet,disintegrating 10,000 mcg PO DAILY fluticasone propion-salmeterol 100-50 mcg/dose blister with device 1 inh inhalation Q12H Qty: 60 9RF prednisone 20 mg tablet See Rx Instructions PO .COMPLEX PRN (Reason: joint pain flare) Qty: 30 1RF Rx Instructions: take 1 or 2 tab daily for 3-7 days as needed for arthritis flare PO PRN; leflunomide 20 mg tablet 20 mg PO DAILY Qty: 90 0RF guaifenesin 400 mg tablet 400 mg PO TID potassium chloride 8 mEq tablet extended release 8 meq PO DAILY Qty: 90 3RF primidone 50 mg tablet 100 mg PO QPM donepezil 10 mg tablet 10 mg PO QPM omeprazole 20 mg capsule,delayed release(DR/EC) 20 mg PO DAILY lithium carbonate 300 mg tablet 300 mg PO BID losartan 50 mg tablet 25 mg PO DAILY spironolactone 25 mg tablet 25 mg PO DAILY tamsulosin 0.4 mg capsule 0.4 mg PO QPM hydralazine 10 mg tablet 40 mg PO TID atorvastatin [Lipitor] 80 mg tablet 80 mg PO DAILY Discharge Orders: Discharge ED (Routine); Ordered 12/18/23 Ordered By: Marie Anders Referrals: Huy Retana MD [Primary Care Provider] - (You have been screened and evaluated and felt safe for discharge. Health conditions do change or evolve sometimes and as such it is important that you follow up with your Primary Doctor to be re checked, 3-5 days is a general good time frame for follow up. You are always welcome to return to the ED for re assessment if your symptoms are worsening or you have new concerns) Discharge Diet: Advance as tolerated Discharge Activity: Resume usual activity Patient Instructions: Diarrhea - Adult, Opioid Safety, Pain Management Coding Level of Care Code ED Recruiting Assistant for Mag Jean
--- NOTE | 2023-12-18 14:46 | XR_ITS ---
WS: [id number] Examination: XR acute abdomen series [id number] Reason for Exam: Diarrhea Date: December 18, 2023 Comparison: April 04, 2023 chest x-ray Findings: The heart is not grossly enlarged on this AP film. The mediastinum is not widened There is minimal linear scarring in the left base. There is no failure or effusion. On the upright film there is no free air. Air and stool are seen within the colon. There is no abnormal small bowel distention or evidence of o bstruction. The psoas margins are well seen. Surgical clips are identified in the right upper abdomen. Lower lumbar degenerative changes are present. Impression: There is no obstruction or free air.
--- NOTE | 2023-12-18 14:51 | PC.PHAR ---
PT IS [facility] FOR MED LIST 2:45PM 12/18/23
[2023-12-18 14:53] VITALS: BP 156/100; PULSE 60; RESP 18; O2SAT 93
[2023-12-18 15:06] LABS: Alanine Aminotransferase 17 U/L (0-41); Albumin Level 4.3 g/dL (3.5-5.2); Alkaline Phosphatase 65 U/L (40-130); Anion Gap 15.7 (5-19); Aspartate Amino Transferase 22 U/L (0-40); Blood Urea Nitrogen 11 mg/dL (8-23); Calcium 9.4 mg/dL (8.5-10.5); Carbon Dioxide 23 mmol/L (22-29); Chloride 106 mmol/L (98-107); Creatinine Clr Calc Pharmacy 57.1362; Globulin 2.4 g/dL (1.3-4.6); Glucose 103 mg/dL (65-115); Osmolality Calculated 292 mOsm/kg (285-295); Potassium 3.7 mmol/L (3.5-5.1); Sodium 141 mmol/L (136-145); Total Bilirubin 0.5 mg/dL (0.15-1.2); Total Protein 6.7 g/dL (6.6-8.7)
[2023-12-18 15:07] LABS: Lactic Sepsis W/Reflex 1.9 mmol/L (0.5-2.2)
[2023-12-18 16:07] LABS: Bilirubin Urine Neg (Negative); Blood Urine Neg (Negative); Glucose Urine UA Norm (Normal); Ketones Urine Negative (Negative); Leukocyte Esterase Urine Negative (Negative); Nitrate Urine Negative (Negative); Protein Urine Neg (Negative); Urine Appearance Clear (CLEAR); Urine Color Light yellow (Yellow); Urobilinogen Urine Neg (Negative); pH Urine 6 (5-7)
[2023-12-18 16:08] LABS: Add Urine Culture? No; RBC Urine RARE /hpf (0-2); Squamous Epithelial Cell Urine RARE /hpf (0-5); WBC Urine RARE /hpf (0-5)
--- NOTE | 2023-12-18 16:27 | PC.PHAR ---
[facility]XED [facility] TIMES AND DID NOT GET A RESPONSE. VERIFED MEDS WITH PT OFF OF CURRENT MED LIST. 12/18/23
[2023-12-18 16:51] VITALS: BP 144/77; PULSE 55; RESP 16; O2SAT 93
== END 2023-12-18 16:52 | disposition home or self-care (01) ==
PROVIDERS: Emergency Provider Emergency Medicine; PCP Family Medicine
DX: R19.7 Diarrhea, unspecified (principal); Z79.82 Long term (current) use of aspirin; Z87.891 Personal history of nicotine dependence; I25.10 Atherosclerotic heart disease of native coronary artery without angina pectoris; F03.90 Unspecified dementia, unspecified severity, without behavioral disturbance, psychotic disturbance, mood disturbance, and anxiety; I25.2 Old myocardial infarction; J44.9 Chronic obstructive pulmonary disease, unspecified; I10 Essential (primary) hypertension
CPT/HCPCS: 36415; 74022; 80053; 81001; 83605; 85025; 86140; 87040; 99284

== ENCOUNTER → 2024-01-06 08:14 | Outpatient (BNVA) | payer OTHER, SELFPAY | PROVIDERS: PCP Family Medicine; Visit Provider Family Medicine | DX: A04.5 Campylobacter enteritis (principal) | CPT/HCPCS: 87045; 87427; 87449; 87493 ==

== ENCOUNTER 2024-01-13 20:00 | Outpatient (CLI) | payer OTHER, SELFPAY | END 2024-01-13 20:01 | disposition home or self-care (01) | LOC: SLEEP 01-14 06:35 | PROVIDERS: Family Provider Family Medicine; PCP Family Medicine; Visit Provider Family Medicine | DX: G47.00 Insomnia, unspecified (principal); G47.33 Obstructive sleep apnea (adult) (pediatric); G47.36 Sleep related hypoventilation in conditions classified elsewhere | CPT/HCPCS: 95810 ==

== ENCOUNTER → 2024-02-01 11:00 | Outpatient (BNVA) | payer OTHER, SELFPAY | PROVIDERS: Family Provider Family Medicine; PCP Family Medicine; Visit Provider Podiatrist Foot & Ankle Surgery | DX: M20.41 Other hammer toe(s) (acquired), right foot | CPT/HCPCS: 99214 ==

== ENCOUNTER → 2024-02-09 13:54 | Outpatient (BNVA) | payer OTHER, SELFPAY | PROVIDERS: Family Provider Family Medicine; PCP Family Medicine; Visit Provider Internal Medicine Cardiovascular Disease | DX: I25.118 Atherosclerotic heart disease of native coronary artery with other forms of angina pectoris (principal); I10 Essential (primary) hypertension; R06.00 Dyspnea, unspecified; R00.1 Bradycardia, unspecified; E78.5 Hyperlipidemia, unspecified; Z87.891 Personal history of nicotine dependence | CPT/HCPCS: 99214 ==

== ENCOUNTER → 2024-03-09 12:45 | Outpatient (BNVA) | payer OTHER, SELFPAY | PROVIDERS: Family Provider Family Medicine; PCP Family Medicine; Visit Provider Internal Medicine Rheumatology | DX: L40.50 Arthropathic psoriasis, unspecified (principal); L40.0 Psoriasis vulgaris; Z79.899 Other long term (current) drug therapy; Z71.85 Encounter for immunization safety counseling; Z87.891 Personal history of nicotine dependence | CPT/HCPCS: 80076; 82565; 85025; 85651; 86140; 99214 ==

== ENCOUNTER → 2024-03-23 15:24 | Outpatient (BNVA) | payer OTHER, SELFPAY | PROVIDERS: Family Provider Family Medicine; PCP Family Medicine; Visit Provider Psychiatry & Neurology Neurology | DX: R25.1 Tremor, unspecified (principal) | CPT/HCPCS: 36415; 80178; 82390; 83735; 84155; 84165; 84439; 84443; 84481; 86334; 86592; 99212 ==

== ENCOUNTER 2024-03-25 06:20 | Day surgery (SDC) | payer OTHER, SELFPAY ==
[2024-03-25] VITALS (7 sets, daily range): BP systolic 103–170; BP diastolic 69–92; PULSE 45–61; RESP 18; TEMP 36.2–36.6; O2SAT 90–96; BMI 30.2
--- NOTE | 2024-03-25 | XR_ITS ---
WS: [id number] C-ARM RADIOGRAPHS RIGHT FOOT; 1 IMAGES HISTORY: [facility] COMPARISON: 03/19/2023 Imaging during screw fixation across the proximal and distal IP joints of the second toe appears in a ppropriate position on this single image only. Prior fixation across the first metatarsal phalangeal joint. XR/XR foot RT 2V [id number] IMPRESSION: Intraoperative imaging during screw fusion second toe.
--- NOTE | 2024-03-25 06:24 | PM.OPSURHP ---
Providers/Chief Complaint Primary Care Provider: Huy Retana MD Chief Complaint: M79.671, M20.41, M24.574 Established 74 year old male patient presenting to clinic for evaluation of right second toe. Patient reports having pain when weight bearing or with ambulation in the right second toe. Has failed to respond positively to accommodative supportive shoes, padding and spacing, activity modifications and anti-inflammatories would like to discuss surgical options. History of Present Illness Juan Larsen is a 74 year old male Review of Systems General: Reports: 10 or more systems reviewed and unremarkable except in HPI and below Const: Denies: fever(s) or chills Eyes: Denies: change in vision Card: Denies: chest pain or palpitations Resp: Denies: dyspnea or productive cough GI: Denies: abdominal pain, nausea or vomiting : Denies: flank pain Musc: Reports: extremity pain, joint pain, joint stiffness, limited range of motion and deformity Skin/Breast: Reports: skin tenderness; Denies: rash Neuro: Reports: difficulty walking; Denies: numbness in extremities, sensory changes or frequent falls Psych: Denies: suicidal ideation Nam/Lymph: Denies: easy bruising Medications/Allergies Home Medications Medication Instructions Recorded Confirmed Last Taken Type aspirin 81 mg tablet,delayed 81 mg PO DAILY 11/01/19 03/24/24 03/23/24 History release (Adult Low Dose Aspirin) levothyroxine 112 mcg tablet 112 mcg PO DAILY 11/01/19 03/24/24 03/23/24 History magnesium oxide 400 mg PO DAILY 03/27/21 03/24/24 03/23/24 History multivitamin 1 tab PO DAILY 03/27/21 03/24/24 03/23/24 History omega-3 fatty acids 1,000 mg 1,000 mg PO DAILY 03/27/21 03/24/24 03/23/24 History capsule (Fish Oil Concentrate) venlafaxine 75 mg capsule,extended 150 mg PO DAILY 05/08/21 03/24/24 03/23/24 History release 24 hr azelastine 137 mcg (0.1 %) nasal 1 spray intranasal BID PRN 09/26/21 03/24/24 1 Day Ago History spray ALLERGIES ~01/07/23 albuterol sulfate 90 mcg/actuation 1 inh inhalation QID PRN shortness 10/11/21 03/24/24 03/23/24 Rx aerosol inhaler (Ventolin HFA) of breath or wheezing #8.5 grams biotin 5,000 mcg disintegrating 10,000 mcg PO DAILY 07/03/22 03/24/24 03/24/24 History tablet cholecalciferol (vitamin D3) 25 25 mcg PO DAILY 07/03/22 03/24/24 03/24/24 History mcg (1,000 unit) capsule atorvastatin 80 mg tablet (Lipitor) 80 mg PO DAILY 10/07/22 03/24/24 03/23/24 History donepezil 10 mg tablet 10 mg PO QPM 01/09/23 03/24/24 03/23/24 History lithium carbonate 300 mg tablet 300 mg PO BID 01/09/23 03/24/24 03/23/24 History omeprazole 20 mg capsule,delayed 20 mg PO DAILY 01/09/23 03/24/24 03/23/24 History release primidone 50 mg tablet 100 mg PO QPM 01/09/23 03/24/24 03/23/24 History potassium chloride 8 mEq 8 meq PO DAILY #90 tabs 06/03/23 03/24/24 03/23/24 Rx tablet,extended release hydralazine 10 mg tablet 40 mg PO TID 12/18/23 03/24/24 03/23/24 History losartan 50 mg tablet 25 mg PO DAILY 12/18/23 03/24/24 03/23/24 History spironolactone 25 mg tablet 25 mg PO DAILY 12/18/23 03/24/24 03/23/24 History tamsulosin 0.4 mg capsule 0.4 mg PO QPM 12/18/23 03/24/24 03/23/24 History ondansetron 8 mg disintegrating 8 mg PO .q6 PRN nausea and 01/04/24 03/24/24 Unknown Rx tablet vomiting #30 tabs furosemide 20 mg tablet 20 mg PO DAILY #90 tabs 02/16/24 03/24/24 03/23/24 Rx diclofenac sodium 1 % topical gel 4 g topical QID #200 grams 03/09/24 03/24/24 03/24/24 Rx leflunomide 20 mg tablet 20 mg PO DAILY 03/24/24 03/24/24 03/23/24 History Allergies Allergy/AdvReac Type Severity Reaction Status Date / Time No Known Allergies Allergy Verified 03/09/24 13:11 PFSH PFSH: Medical History Salmonella food poisoning jun 2023 Coronary artery disease Impaired cognition Hypothyroidism Dementia Hearing loss Tinnitus Palpitations Myocardial infarction Myocardial infarction acute 08/31/21 tx at [facility] with 2 stents placed COPD (chronic obstructive pulmonary disease) Bipolar disorder Benign essential hypertension Psoriatic arthritis BPH loc w urin obs/LUTS Immunization counseling High risk medication use Inflammatory arthritis Spondylolisthesis Plaque psoriasis Generalized osteoarthritis Surgical History Hx of cataract extraction History of left knee replacement Hx of neck surgery History of PTCA History of appendectomy History of cholecystectomy History of back surgery History of knee surgery Family History Mother , at age 62 Cancer Breast,bone Father , at age 92 Congestive heart failure (CHF) Other Hypertension Denies family history of Rheumatoid arthritis Diabetes Lupus CAD (coronary artery disease) Clotting disorder Dementia Chronic kidney disease (CKD) Systemic lupus erythematosus (SLE) in adult Suicide Anesthesia complication Bleeding disorder Family history of premature coronary artery disease Lung disease Stroke Social History Smoking and tobacco/nicotine status: unknown if used tobacco/nicotine Quit status (tobacco/nicotine): has quit using Former quit date comment: 1ppd x 10 years and marijuana use, started at age 16 years Alcohol intake: never Substance/Drug Use: never Marital status: service: Yes status: Discharged branch: [employer] branch details: [place] timeframe Current occupational status: retired Dietary Habits: Caffeine: Yes Caffeine intake frequency: carbonated beverages Physical Exam Narrative: EXAM NARRATIVE: Patient is alert and oriented ?3 and in no acute distress. The following is a focused right lower extremity exam. VASCULAR: Dorsalis pedis and posterior tibial arteries palpable +2. Capillary refill time less than 3 seconds to the distal hallux bilaterally. Calf is supple and nontender proximally and distally. Mild edema at the operative site consistent with postoperative course. NEUROLOGICAL: Protective sensation intact to light touch. DERMATOLOGICAL: Well old cicatrix right foot. MUSCULOSKELETAL: Pain to palpation right second hammertoe deformity at right second toe. Is painful at the distal interphalangeal joint and proximal interphalangeal joint. Hammertoe contracture has sagittal plane dominance and is similar reducible with pain and guarding. Muscle strength +5 in all 3 planes bilateral foot and ankle. CARDIOVASCULAR: S1, S2, normal rate, normal rhythm. Dorsalis pedis and posterior tibial arteries palpable. LUNGS: Clear to auscltation, no use of acessory muscles, no crackles or wheezes. A&P Assessment and plan (1) Right foot pain: (2) Hammertoe of second toe of right foot: Plan 74 year old male patient presenting to clinic for evaluation of right second toe. Patient reports having pain when weight bearing or with ambulation in the right second toe. Has failed to respond positively to accommodative supportive shoes, padding and spacing, activity modifications and anti-inflammatories would like to discuss surgical options. I reviewed at length with the patient, the risks, potential complications, benefits, alternatives, expectations, and typical outcomes associated with the surgery. The risks and potential complications were explained in detail, including but not limited to infection, wound dehiscence or soft tissue complications, bleeding and hematoma, chronic edema, neuritis or nerve damage producing numbness or chronic pain, CRPS, failure to relieve pain or worsening pain, thick / painful / unsightly scar, limited motion / stiffness, malposition, delayed union, malunion, or nonunion, fracture, reaction to implants, anesthetic complications, venous thromboembolism, and deformity recurrence.? I discussed the notion of no regrets with the patient as it pertains to complications and outcomes. The patient seemed to understand the nature of the proposed care and required convalescence. They asked appropriate questions, answered to their satisfaction. They are aware no guarantees can be made as to a satisfactory outcome and they understand there may be other possible unforeseen complications or outcomes not listed here that will be treated accordingly if they arise. There were no written or implied guarantees given to the patient. They gave informed consent to proceed. Planning on outpatient surgery consisting of distal interphalangeal joint and proximal interphalangeal joint arthrodesis with intramedullary screw and flexor tendon transfer tentatively March 25, 2024 Local MAC, david, supine 30 minutes [place] Mini C arm TPS Coding Level of Care Code Acute Code for Chg Fwd Diagnoses Right foot pain M79.671 Hammertoe of second toe of right foot M20.41
[2024-03-25] MEDS: sodium chloride 0.9% 1,000 ML 30 ML IV (06:57)
--- NOTE | 2024-03-25 07:23 | ANES.PREANE2 ---
Pre-Anesthetic Assessment Height/Weight: Height 1.7 m Weight 87.543 kg Temp Pulse Resp BP Pulse Ox O2 Del Method 98 F 61 18 159/92 94 Room Air 03/25/24 06:45 03/25/24 06:45 03/25/24 06:45 03/25/24 06:45 03/25/24 06:45 03/25/24 06:45 Preop Diagnosis: Right foot tendon contracture, right second hammertoe Operation Date: 03/25/24 07:50 Proposed Procedures p Tendon Transfer Right Foot(Right) - Black Stark DPM s Right second Hammertoe Correction(Right) - Black Stark DPM Last intake: Intake Last Liquid Date 03/24/24 Last Liquid Time 23:55 Last Solid Date 03/24/24 Last Solid Time 21:00 Social No alcohol and No tobacco Exam alert, oriented x 3, clear to auscultation bilaterally and regular rate & rhythm Airway Submandibular: within normal limits Cervical ROM: within normal limits Mallampati: Class I Pulmonary Chronic Obstructive Pulmonary Disease CV/HEM Hypertension None reported Hepatic None reported GI None reported Metabolic Hyperlipidemia and Thyroid Disease Neuropsych Bipolar Anesthetic Plan ASA status: 3 Anesthesia: MAC Risk of > 500 ml blood loss (7ml/kg in children): No Medications/Allergies Home Medications Medication Instructions Recorded Confirmed Last Taken Type aspirin 81 mg tablet,delayed 81 mg PO DAILY 11/01/19 03/24/24 03/23/24 History release (Adult Low Dose Aspirin) levothyroxine 112 mcg tablet 112 mcg PO DAILY 11/01/19 03/24/24 03/24/24 History magnesium oxide 400 mg PO DAILY 03/27/21 03/24/24 03/24/24 History multivitamin 1 tab PO DAILY 03/27/21 03/24/24 03/24/24 History omega-3 fatty acids 1,000 mg 1,000 mg PO DAILY 03/27/21 03/24/24 03/24/24 History capsule (Fish Oil Concentrate) venlafaxine 75 mg capsule,extended 150 mg PO DAILY 05/08/21 03/24/24 03/24/24 History release 24 hr azelastine 137 mcg (0.1 %) nasal 1 spray intranasal BID PRN 09/26/21 03/25/24 03/23/24 History spray ALLERGIES albuterol sulfate 90 mcg/actuation 1 inh inhalation QID PRN shortness 10/11/21 03/24/24 03/23/24 Rx aerosol inhaler (Ventolin HFA) of breath or wheezing #8.5 grams biotin 5,000 mcg disintegrating 10,000 mcg PO DAILY 07/03/22 03/24/24 03/24/24 History tablet cholecalciferol (vitamin D3) 25 25 mcg PO DAILY 07/03/22 03/24/24 03/24/24 History mcg (1,000 unit) capsule atorvastatin 80 mg tablet (Lipitor) 80 mg PO DAILY 10/07/22 03/24/24 03/24/24 History donepezil 10 mg tablet 10 mg PO QPM 01/09/23 03/24/24 03/24/24 History lithium carbonate 300 mg tablet 300 mg PO BID 01/09/23 03/24/24 03/24/24 History omeprazole 20 mg capsule,delayed 20 mg PO DAILY 01/09/23 03/24/24 03/24/24 History release primidone 50 mg tablet 100 mg PO QPM 01/09/23 03/24/24 03/24/24 History potassium chloride 8 mEq 8 meq PO DAILY #90 tabs 06/03/23 03/24/24 03/24/24 Rx tablet,extended release hydralazine 10 mg tablet 40 mg PO TID 12/18/23 03/24/24 03/24/24 History losartan 50 mg tablet 25 mg PO DAILY 12/18/23 03/24/24 03/24/24 History spironolactone 25 mg tablet 25 mg PO DAILY 12/18/23 03/24/24 03/24/24 History tamsulosin 0.4 mg capsule 0.4 mg PO QPM 12/18/23 03/24/24 03/24/24 History ondansetron 8 mg disintegrating 8 mg PO .q6 PRN nausea and 01/04/24 03/25/24 03/23/24 Rx tablet vomiting #30 tabs furosemide 20 mg tablet 20 mg PO DAILY #90 tabs 02/16/24 03/24/24 03/24/24 Rx diclofenac sodium 1 % topical gel 4 g topical QID #200 grams 03/09/24 03/24/24 03/24/24 Rx leflunomide 20 mg tablet 20 mg PO DAILY 03/24/24 03/24/24 03/24/24 History hydrocodone 10 mg-acetaminophen 1 tab PO Q6H PRN pain 7 days #28 03/25/24 Unknown Rx 325 mg tablet tabs Allergies Allergy/AdvReac Type Severity Reaction Status Date / Time No Known Allergies Allergy Verified 03/09/24 13:11 Current Medications Generic Name Dose Route Start Last Admin Trade Name Freq PRN Reason Stop Dose Admin Sodium Chloride 1,000 mls @ 30 mls/hr 03/25/24 06:30 03/25/24 06:57 Sodium Chloride 0.9% IV 03/26/24 06:29 30 mls/hr .Q24H FATMATA Administration PFSH Anesthesia Medical History Salmonella food poisoning jun 2023 Coronary artery disease Impaired cognition Hypothyroidism Dementia Hearing loss Tinnitus Palpitations Myocardial infarction Myocardial infarction acute 08/31/21 tx at [facility] with 2 stents placed COPD (chronic obstructive pulmonary disease) Bipolar disorder Benign essential hypertension Psoriatic arthritis BPH loc w urin obs/LUTS Immunization counseling High risk medication use Inflammatory arthritis Spondylolisthesis Plaque psoriasis Generalized osteoarthritis Surgical History Hx of cataract extraction History of left knee replacement Hx of neck surgery History of PTCA History of appendectomy History of cholecystectomy History of back surgery History of knee surgery Family History Mother , at age 62 Cancer Breast,bone Father , at age 92 Congestive heart failure (CHF) Other Hypertension Denies family history of Rheumatoid arthritis Diabetes Lupus CAD (coronary artery disease) Clotting disorder Dementia Chronic kidney disease (CKD) Systemic lupus erythematosus (SLE) in adult Suicide Anesthesia complication Bleeding disorder Family history of premature coronary artery disease Lung disease Stroke Social History Smoking and tobacco/nicotine status: unknown if used tobacco/nicotine Quit status (tobacco/nicotine): has quit using Former quit date comment: 1ppd x 10 years and marijuana use, started at age 16 years Alcohol intake: never Substance/Drug Use: never Marital status: service: Yes status: Discharged branch: [employer] branch details: [place] timeframe Current occupational status: retired Data Anesthesia Cardiac Studies: Echocardiogram 10/03/21 Sestamibi Stress Test (Cardiology) 09/17/23 Cardiac Event Monitor 01/02/22
[2024-03-25] MEDS: ceFAZolin 2,000 mg SDV 2000 MG IVP (07:50)
[2024-03-25] MEDS: BUPivacaine 0.5% INJ 10 mL INJECTION (08:14)
[2024-03-25] MEDS: BUPivacaine liposome 13.3 mg/mL SDV 20 mL 266 MG INJECTION (08:14)
--- NOTE | 2024-03-25 08:59 | W.PM.BPON ---
Date of Procedure: 11/27/23 Surgeon: Black Stark DPM [employer] Plant Operator(s): Nataly Procedure(s) performed: Deep tendon transfer and second hammertoe correction all right foot. Findings of the procedure(s): None Estimated blood loss: 2 mL Specimen(s) removed: No specimens Post-operative diagnosis: Tendon contracture and hammertoe deformity right foot. Local MAC, no complications with anesthesia or surgery.
--- NOTE | 2024-03-25 09:00 | P.OP_ITS ---
Operative Report Date of procedure: March 25, 2024 Pre-op diagnosis: Right foot pain M79.671 Hammertoe of second toe of right foot M20.41 Contracture right foot. M24.574 Post-op diagnosis: Right foot pain M79.671 Hammertoe of second toe of right foot M20.41 Contracture right foot. M24.574 Procedure done: 1) tendon transfer right foot CPT code 79034 2) right second hammertoe correction. CPT code 84001 Implants: Bridgewater 28 2.0mm Cannulated screw, 4-0 Vicryl, 4-0 nylon Specimens removed/disposition: No specimens Pathology: No pathology Surgeon: Black Stark DPM Printing Plate Setter: Nataly Estimated blood loss: 2 29 minutes IV fluids: See intraoperative documentation Urine output: See intraoperative documentation Complications: No complications Brief History: 74 year old male patient presenting to clinic for evaluation of right second toe. Patient reports having pain when weight bearing or with ambulation in the right second toe. Has failed to respond positively to accommodative supportive shoes, padding and spacing, activity modifications and anti-inflammatories would like to discuss surgical options. I reviewed at length with the patient, the risks, potential complications, benefits, alternatives, expectations, and typical outcomes associated with the surgery. The risks and potential complications were explained in detail, including but not limited to infection, wound dehiscence or soft tissue complications, bleeding and hematoma, chronic edema, neuritis or nerve damage producing numbness or chronic pain, CRPS, failure to relieve pain or worsening pain, thick / painful / unsightly scar, limited motion / stiffness, malposition, delayed union, malunion, or nonunion, fracture, reaction to implants, anesthetic complications, venous thromboembolism, and deformity recurrence.? I discussed the notion of no regrets with the patient as it pertains to complications and outcomes. The patient seemed to understand the nature of the proposed care and required convalescence. They asked appropriate questions, answered to their satisfaction. They are aware no guarantees can be made as to a satisfactory outcome and they understand there may be other possible unforeseen complications or outcomes not listed here that will be treated accordingly if they arise. There were no written or implied guarantees given to the patient. They gave informed consent to proceed. Procedure: Under mild sedation the patient was brought to the operating room and remained on the gurney in supine position. A timeout was performed. Anesthesia was then administered by the anesthesia service. Local anesthesia injected by myself consisting of 20 cc of 0.5% Marcaine in a right second ray block fashion with an additional 20 cc of Exparel subcutaneously in a grid like fashion at the dorsal right foot per manufacture recommendation and technique. Well-padded pneumatic tourniquet was applied to the right ankle. The right lower extremity was scrubbed, prepped and draped utilizing normal aseptic technique. Right foot was then exanguinated with an Esmarch bandage and tourniquet inflated to 250 mmHg. Attention was directed to the right forefoot where deep tendon contracture was appreciated with sagittal plane dominant deformity of the right second toe as well as arthrosis of the right second proximal interphalangeal joint. A linear longitudinal incision made over the dorsal aspect of the right second toe through skin with a #15 blade with dissection carried down to extensor tendon which was transected at the level of the proximal interphalangeal joint and dissected proximally and temporary by a mosquito hemostat. The head and base of the right second proximal interphalangeal joint were resected with a oscillating saw pad about the field. Sharp dissection carried down to the flexor digitorum longus tendon which was transected at its most distal margin and split longitudinally and then transferred both medially laterally and hemisections fashion and transferred to the dorsal aspect of the right second toe which was then held in rectus and tendon was reapproximated utilizing 4-0 nylon helping to reduce the sagittal plane deformity at the right second toe and to help prevent cock-up toe deformity. The incision was irrigated with saline solution. Subchondral joint was performed at the proximal distal phalanx next utilizing standard AO technique a Bridgewater 2 mm headed partially-threaded screw was integrated and then retrograded to remain intramedullary within the distal, intermediate and proximal phalanx of the right second toe holding this rectus and allowing excellent compression at the proximal interphalangeal joint arthrodesis site excellent placement of hardware and rectus right second toe was appreciated both intraoperatively under direct visualization as well as with AP, oblique and lateral views noted to be excellent in all 3 planes with the second metatarsal plantar joint not being violated. Smooth range of motion appreciated at the right second metatarsal phalangeal joint. The incision was then flushed with copious amounts of sterile saline solution and the extensor tendon was reapproximated utilizing 4-0 Vicryl. Subcutaneous tissue closed with 4-0 Vicryl and skin with 4-0 nylon. The incision was then dressed with Adaptic, sterile 4 x 4's, Kerlix and Aubrey wrap followed by application of a cam boot. Tourniquet was deflated and a prompt hyperemic response was noted to the distal digits of the right foot. Patient tolerated the procedure and anesthesia well and was transferred to the PACU with vital signs stable and vascular status intact. Following a period of postoperative monitoring he will be discharged home was given at home care instructions and scheduled follow-up he is also given my cell phone number to contact me directly with any postoperative questions or concerns.
--- NOTE | 2024-03-25 13:36 | ANE.PACU2 ---
Inpatient post-anesthesia follow up: Airway intact: Yes Vital signs: Temperature 97.1 F Pulse Rate 52 Respiratory Rate 18 Blood Pressure 170/80 Pulse Oximetry 95 Oxygen Delivery Me thod Room Air Oxygen Flow Rate 6 Fraction of Inspir ed Oxygen Hydration adequate: Yes Nausea and vomiting: No Pain level: controlled Mental status: Baseline Additional Comments: no apparent anesthetic complications noted
== END 2024-03-25 09:40 | disposition home or self-care (01) ==
PROVIDERS: Family Provider Family Medicine; PCP Family Medicine; Visit Provider Podiatrist Foot & Ankle Surgery
PROC: (CPT 27691; principal; 2024-03-25 07:40)
PROC: (CPT 28285; 2024-03-25 07:40)
DX: M20.41 Other hammer toe(s) (acquired), right foot (principal); M24.574 Contracture, right foot; J44.9 Chronic obstructive pulmonary disease, unspecified; I10 Essential (primary) hypertension; E78.5 Hyperlipidemia, unspecified; I25.10 Atherosclerotic heart disease of native coronary artery without angina pectoris; Z79.82 Long term (current) use of aspirin; I25.2 Old myocardial infarction; F03.90 Unspecified dementia, unspecified severity, without behavioral disturbance, psychotic disturbance, mood disturbance, and anxiety; N40.1 Benign prostatic hyperplasia with lower urinary tract symptoms; N13.8 Other obstructive and reflux uropathy; Z87.891 Personal history of nicotine dependence
CPT/HCPCS: 27691; 28285; 73620; 76000; C1713; C9290; J0690; J2704; J3010; J3490; J7030

== ENCOUNTER → 2024-04-01 10:15 | Outpatient (BNVA) | payer OTHER, SELFPAY | PROVIDERS: Family Provider Family Medicine; PCP Family Medicine; Visit Provider Podiatrist Foot & Ankle Surgery | DX: M20.41 Other hammer toe(s) (acquired), right foot (principal) | CPT/HCPCS: 99024 ==

== ENCOUNTER → 2024-04-07 15:15 | Outpatient (BNVA) | payer OTHER, SELFPAY | PROVIDERS: Family Provider Family Medicine; PCP Family Medicine; Visit Provider Podiatrist Foot & Ankle Surgery | DX: M20.41 Other hammer toe(s) (acquired), right foot (principal); Z98.890 Other specified postprocedural states; T84.498A Other mechanical complication of other internal orthopedic devices, implants and grafts, initial encounter; Y79.2 Prosthetic and other implants, materials and accessory orthopedic devices associated with adverse incidents | CPT/HCPCS: 20680; 73630; 87070; 87077; 87176; 87186; 87205; 99024 ==

== ENCOUNTER → 2024-04-14 14:49 | Outpatient (BNVA) | payer OTHER, SELFPAY | PROVIDERS: Family Provider Family Medicine; PCP Family Medicine; Visit Provider Podiatrist Foot & Ankle Surgery | DX: Z98.890 Other specified postprocedural states (principal); Z87.39 Personal history of other diseases of the musculoskeletal system and connective tissue | CPT/HCPCS: 73630; 99024 ==

== ENCOUNTER → 2024-04-19 15:02 | Outpatient (BNVA) | payer OTHER, SELFPAY | PROVIDERS: Family Provider Family Medicine; PCP Family Medicine; Visit Provider Podiatrist Foot & Ankle Surgery | DX: M79.671 Pain in right foot; Z98.890 Other specified postprocedural states; Z87.39 Personal history of other diseases of the musculoskeletal system and connective tissue | CPT/HCPCS: 73630; 99024 ==

== ENCOUNTER 2024-05-09 16:03 | Oncology outpatient (recurring) (ONCR) | payer OTHER, SELFPAY ==
[2024-05-09 17:58] LABS: Basophils % 0.5 %; Eosinophils # 0.1 10^3/uL (0.0-0.8); Eosinophils % 1.4 %; Hematocrit 37.1 % (37-53); Lymphocytes # 1.2 10^3/uL (0.8-4.8); Lymphocytes % 14.2 %; Mean Corpuscular HGB Conc 32.3 g/dL (30-55); Mean Corpuscular Hemoglobin 32.4 pg (27-33); Mean Corpuscular Volume 100.3 fl (82-101); Mean Platelet Volume 10.5 fL (7.4-10.4); Monocytes # 0.8 10^3/uL (0.2-0.9); Monocytes % 9.4 %; Neutrophils # 6.34 10^3/uL (1.8-7.7); Neutrophils % 74.1 %; Nucleated Red Blood Cells % 0 %; Platelet Count 150 10^3/cmm (157-399); Red Cell Distribution Width 16.4 % (12.1-15.1); White Blood Count 8.54 10^3/uL (3.29-11.43)
[2024-05-09 18:39] LABS: Erythrocyte Sedimentation Rate 1 mm/hr (0-10)
[2024-05-09 19:39] LABS: Clostridioides Difficile Toxin NEGATIVE (Negative)
[2024-05-09 20:15] LABS: Alanine Aminotransferase 11 U/L (0-41); Alkaline Phosphatase 63 U/L (40-130); Aspartate Amino Transferase 19 U/L (0-40); Blood Urea Nitrogen 10 mg/dL (8-23); C Reactive Protein 6.8 mg/L (0.0-4.9); Calcium 8.2 mg/dL (8.5-10.5); Carbon Dioxide 22 mmol/L (22-29); Chloride 105 mmol/L (98-107); Creatinine Clr Calc Pharmacy 73.5763; Globulin 2.2 g/dL (1.3-4.6); Glucose 109 mg/dL (65-115); Immunoglobulin IGA 152 mg/dL (70-400); Immunoglobulin IGG 513 mg/dL (700-1600); Osmolality Calculated 286 mOsm/kg (285-295); Sodium 138 mmol/L (136-145); Total Bilirubin 0.5 mg/dL (0.15-1.2); Total Protein 6.2 g/dL (6.6-8.7)
[2024-05-09 20:21] LABS: Immunoglobulin IGM < 25 mg/dL (40-230)
[2024-05-10 08:12] LABS: C.Diff PCR (Lab) POSITIVE (Negative)
[2024-05-11 15:10] LABS: ALBUMIN 3.8 g/dL (3.8-4.8); ALPHA 1 GLOBULIN 0.3 g/dL (0.2-0.3); ALPHA 2 GLOBULIN 0.7 g/dL (0.5-0.9); BETA 1 GLOBULIN 0.4 g/dL (0.4-0.6); BETA 2 GLOBULIN 0.3 g/dL (0.2-0.5); GAMMA GLOBULIN 0.5 g/dL (0.8-1.7)
[2024-05-12 12:15] LABS: KAPPA LIGHT CHAIN, FREE, SERUM 11.7 mg/L (3.3-19.4); KAPPA/LAMBDA LIGHT CHAINS FREE 0.77 (0.26-1.65); LAMBDA LIGHT CHAIN, FREE, SERU 15.1 mg/L (5.7-26.3)
== END 2024-05-14 23:59 | disposition home or self-care (01) ==
PROVIDERS: Family Provider Family Medicine; PCP Family Medicine; Visit Provider Internal Medicine Medical Oncology
DX: Z53.9 Procedure and treatment not carried out, unspecified reason (principal); D80.1 Nonfamilial hypogammaglobulinemia; R19.7 Diarrhea, unspecified; Z87.891 Personal history of nicotine dependence
CPT/HCPCS: 36415; 80053; 82570; 82784; 83883; 84155; 84165; 84166; 85025; 85651; 86140; 86334; 86335; 87045; 87177; 87209; 87324; 87427; 87449; 87493; 99205

== ENCOUNTER 2024-05-18 11:12 | Outpatient (CLI) | payer OTHER, SELFPAY ==
[2024-05-19 13:43] LABS: CREATININE, 24 HOUR URINE 0.81 g/24 h (0.50-2.15); PROTEIN, TOTAL, 24 HR UR 115 mg/24 h (<150); Protein/Creatinine Ratio 0.143 (<0.100); Protein/Creatinine Ratio 143 mg/g creat (<100)
== END 2024-05-18 11:13 | disposition home or self-care (01) ==
LOC: LAB 11:13
PROVIDERS: Family Provider Family Medicine; PCP Family Medicine; Visit Provider Internal Medicine Medical Oncology
DX: D80.1 Nonfamilial hypogammaglobulinemia (principal)
CPT/HCPCS: 82570; 84166; 86335

== ENCOUNTER 2024-05-19 06:00 | Oncology outpatient (recurring) (ONCR) | payer OTHER, SELFPAY | END 2024-06-13 23:59 | disposition home or self-care (01) | PROVIDERS: PCP Family Medicine; Visit Provider Internal Medicine Medical Oncology | DX: Z53.9 Procedure and treatment not carried out, unspecified reason (principal); D80.1 Nonfamilial hypogammaglobulinemia; R19.7 Diarrhea, unspecified; Z87.891 Personal history of nicotine dependence; Z98.890 Other specified postprocedural states | CPT/HCPCS: 36415; 80053; 85025; 85651; 86140 ==

== ENCOUNTER → 2024-05-19 13:48 | Outpatient (BNVA) | payer OTHER, SELFPAY | PROVIDERS: Family Provider Family Medicine; PCP Family Medicine; Visit Provider Podiatrist Foot & Ankle Surgery | DX: Z98.890 Other specified postprocedural states (principal); Z87.39 Personal history of other diseases of the musculoskeletal system and connective tissue | CPT/HCPCS: 73630; 99024; 99213 ==

== ENCOUNTER 2024-07-06 12:16 | Oncology outpatient (recurring) (ONCR) | payer OTHER, SELFPAY ==
[2024-07-06 12:48] LABS: Basophils # 0.1 10^3/uL (0.0-0.1); Basophils % 0.6 %; Eosinophils # 0.4 10^3/uL (0.0-0.8); Eosinophils % 4.8 %; Hematocrit 38.7 % (37-53); Lymphocytes # 1.2 10^3/uL (0.8-4.8); Lymphocytes % 13.3 %; Mean Corpuscular Hemoglobin 30.8 pg (27-33); Mean Corpuscular Volume 96.3 fl (82-101); Mean Platelet Volume 10.4 fL (7.4-10.4); Monocytes # 0.6 10^3/uL (0.2-0.9); Monocytes % 6.4 %; Neutrophils # 6.77 10^3/uL (1.8-7.7); Neutrophils % 74.6 %; Nucleated Red Blood Cells % 0 %; Platelet Count 170 10^3/cmm (157-399); Red Blood Count 4.02 10^6/uL (3.85-5.65); Red Cell Distribution Width 14.6 % (12.1-15.1); White Blood Count 9.08 10^3/uL (3.29-11.43)
[2024-07-06 13:06] LABS: Alanine Aminotransferase 13 U/L (0-41); Albumin Level 4.3 g/dL (3.5-5.2); Alkaline Phosphatase 65 U/L (40-130); Anion Gap 15.4 (5-19); Aspartate Amino Transferase 28 U/L (0-40); Blood Urea Nitrogen 10 mg/dL (8-23); Calcium 8.1 mg/dL (8.5-10.5); Carbon Dioxide 23 mmol/L (22-29); Chloride 105 mmol/L (98-107); Creatinine Clr Calc Pharmacy 61.0783; Globulin 2.1 g/dL (1.3-4.6); Glucose 101 mg/dL (65-115); Osmolality Calculated 289 mOsm/kg (285-295); Potassium 3.4 mmol/L (3.5-5.1); Sodium 140 mmol/L (136-145); Total Bilirubin 0.5 mg/dL (0.15-1.2); Total Protein 6.4 g/dL (6.6-8.7)
[2024-07-08 11:10] LABS: KAPPA LIGHT CHAIN, FREE, SERUM 18.1 mg/L (3.3-19.4); KAPPA/LAMBDA LIGHT CHAINS FREE 0.88 (0.26-1.65); LAMBDA LIGHT CHAIN, FREE, SERU 20.5 mg/L (5.7-26.3)
== END 2024-07-14 23:59 | disposition home or self-care (01) ==
PROVIDERS: PCP Family Medicine; Visit Provider Internal Medicine Medical Oncology
DX: D80.1 Nonfamilial hypogammaglobulinemia; Z87.891 Personal history of nicotine dependence; Z98.890 Other specified postprocedural states
CPT/HCPCS: 36415; 80053; 83883; 85025; 99214

== ENCOUNTER → 2024-07-11 15:34 | Outpatient (BNVA) | payer OTHER, SELFPAY | PROVIDERS: PCP Family Medicine; Visit Provider Internal Medicine Cardiovascular Disease | DX: I10 Essential (primary) hypertension (principal); R06.00 Dyspnea, unspecified; I25.118 Atherosclerotic heart disease of native coronary artery with other forms of angina pectoris | CPT/HCPCS: 80048; 83880 ==

== ENCOUNTER → 2024-07-13 14:15 | Outpatient (BNVA) | payer OTHER, SELFPAY | PROVIDERS: PCP Family Medicine; Visit Provider Internal Medicine Rheumatology | DX: Z79.899 Other long term (current) drug therapy (principal); L40.50 Arthropathic psoriasis, unspecified; L40.0 Psoriasis vulgaris; Z71.89 Other specified counseling | CPT/HCPCS: 99214 ==

== ENCOUNTER 2024-07-27 13:37 | Oncology outpatient (recurring) (ONCR) | payer OTHER, SELFPAY | END 2024-08-13 23:59 | disposition home or self-care (01) | PROVIDERS: PCP Family Medicine; Visit Provider Internal Medicine Medical Oncology | DX: D80.1 Nonfamilial hypogammaglobulinemia (principal); Z87.891 Personal history of nicotine dependence; R19.7 Diarrhea, unspecified; Z79.899 Other long term (current) drug therapy | CPT/HCPCS: 99214 ==

== ENCOUNTER → 2024-11-16 13:27 | Outpatient (BNVA) | payer OTHER, SELFPAY | PROVIDERS: PCP Family Medicine; Visit Provider Internal Medicine Rheumatology | DX: L40.50 Arthropathic psoriasis, unspecified (principal); L40.0 Psoriasis vulgaris; Z79.899 Other long term (current) drug therapy; Z71.89 Other specified counseling | CPT/HCPCS: 36415; 80076; 82565; 85025; 85651; 86140; 99214 ==

== ENCOUNTER 2024-12-15 13:56 | Oncology outpatient (recurring) (ONCR) | payer OTHER, SELFPAY ==
[2024-12-15 14:27] LABS: Basophils % 0.7 %; Eosinophils # 0.3 10^3/uL (0.0-0.8); Eosinophils % 4.7 %; Hematocrit 38.4 % (37-53); Lymphocytes # 2.3 10^3/uL (0.8-4.8); Lymphocytes % 37.8 %; Mean Corpuscular HGB Conc 32.6 g/dL (30-55); Mean Corpuscular Hemoglobin 30.2 pg (27-33); Mean Corpuscular Volume 92.8 fl (82-101); Mean Platelet Volume 9.9 fL (7.4-10.4); Monocytes # 0.6 10^3/uL (0.2-0.9); Neutrophils % 46.5 %; Nucleated Red Blood Cells % 0 %; Platelet Count 204 10^3/cmm (157-399); Red Blood Count 4.14 10^6/uL (3.85-5.65); Red Cell Distribution Width 13.6 % (12.1-15.1); White Blood Count 6.01 10^3/uL (3.29-11.43)
[2024-12-15 14:45] LABS: Alanine Aminotransferase 13 U/L (0-41); Albumin Level 4.2 g/dL (3.5-5.2); Alkaline Phosphatase 93 U/L (40-130); Anion Gap 12.4 (5-19); Aspartate Amino Transferase 13 U/L (0-40); Blood Urea Nitrogen 15 mg/dL (8-23); Calcium 8.8 mg/dL (8.5-10.5); Carbon Dioxide 28 mmol/L (22-29); Chloride 105 mmol/L (98-107); Globulin 2.4 g/dL (1.3-4.6); Glucose 102 mg/dL (65-115); Immunoglobulin IGA 250 mg/dL (70-400); Immunoglobulin IGG 697 mg/dL (700-1600); Immunoglobulin IGM < 25 mg/dL (40-230); Osmolality Calculated 295 mOsm/kg (285-295); Potassium 3.4 mmol/L (3.5-5.1); Sodium 142 mmol/L (136-145); Total Bilirubin 0.3 mg/dL (0.15-1.2); Total Protein 6.6 g/dL (6.6-8.7)
[2024-12-16 05:10] LABS: PROTEIN, TOTAL 6.5 g/dL (6.1-8.1)
[2024-12-16 12:29] LABS: KAPPA/LAMBDA LIGHT CHAINS FREE 0.78 (0.26-1.65); LAMBDA LIGHT CHAIN, FREE, SERU 29.5 mg/L (5.7-26.3)
[2024-12-16 20:34] LABS: ALBUMIN 3.9 g/dL (3.8-4.8); ALPHA 1 GLOBULIN 0.3 g/dL (0.2-0.3); ALPHA 2 GLOBULIN 0.8 g/dL (0.5-0.9); BETA 1 GLOBULIN 0.5 g/dL (0.4-0.6); BETA 2 GLOBULIN 0.4 g/dL (0.2-0.5); GAMMA GLOBULIN 0.7 g/dL (0.8-1.7)
[2024-12-19 15:44] LABS: Immunofixation Serum Normal pattern.
== END 2025-01-11 23:59 | disposition home or self-care (01) ==
PROVIDERS: Internal Medicine; PCP Family Medicine; Visit Provider Internal Medicine Medical Oncology
DX: D80.1 Nonfamilial hypogammaglobulinemia (principal); R19.7 Diarrhea, unspecified; L40.50 Arthropathic psoriasis, unspecified; Z79.899 Other long term (current) drug therapy; Z87.891 Personal history of nicotine dependence
CPT/HCPCS: 36415; 80053; 82784; 83883; 84155; 84165; 85025; 86334; 99213

== ENCOUNTER → 2025-01-19 14:02 | Outpatient (BNVA) | payer OTHER, SELFPAY | PROVIDERS: PCP Family Medicine; Visit Provider Internal Medicine Cardiovascular Disease | DX: I25.10 Atherosclerotic heart disease of native coronary artery without angina pectoris (principal); E78.5 Hyperlipidemia, unspecified; R06.09 Other forms of dyspnea; I10 Essential (primary) hypertension; Z79.82 Long term (current) use of aspirin; Z95.5 Presence of coronary angioplasty implant and graft; I25.2 Old myocardial infarction; Z87.891 Personal history of nicotine dependence | CPT/HCPCS: 99214 ==

== ENCOUNTER → 2025-04-03 11:04 | Outpatient (BNVA) | payer OTHER, SELFPAY | PROVIDERS: PCP Family Medicine; Visit Provider Podiatrist Foot & Ankle Surgery | DX: E13.9 Other specified diabetes mellitus without complications (principal); L60.3 Nail dystrophy; L60.8 Other nail disorders; M20.21 Hallux rigidus, right foot; M20.22 Hallux rigidus, left foot; I73.9 Peripheral vascular disease, unspecified | CPT/HCPCS: 11721 ==

== ENCOUNTER → 2025-04-10 12:58 | Outpatient (BNVA) | payer OTHER, SELFPAY | PROVIDERS: PCP Family Medicine; Visit Provider Psychiatry & Neurology Neurology | DX: R25.1 Tremor, unspecified (principal) | CPT/HCPCS: 99212 ==

== ENCOUNTER 2025-04-19 16:00 | Oncology outpatient (recurring) (ONCR) | payer OTHER, SELFPAY ==
--- NOTE | 2025-04-19 16:00 | USCV_ITS ---
Kvngsho Juan Age: 75 Gender: M : 1950 Exam Date: 04/19/2025 16:08 Ordering Phys: Sathya Manrique MD Technologist: R Exam Location: [facility] [place] Indication: dizziness Risk Factors: Previous Vascular Surgery: Right Brachial BP: / Left Brachial BP: / Right Left Velocity (cm/s) Spectral Plaque Velocity (cm/s) Spectral Plaque Syst/Diast Broadening Syst/Diast Broadening 39.20/ 9.00 Prox CCA 62.30 / 17.30 40.20/ 8.00 Mid CCA 44.20 / 12.90 38.30/ 10.40 Distal CCA 39.10 / 13.30 28.70/ 7.60 Prox ICA 34.80 / 11.20 37.50/ 10.50 Mid ICA 36.50 / 14.10 33.90/ 13.40 Distal ICA 33.30 / 16.50 41.00 ECA 84.20 1.00 ICA/CCA 0.90 Antegrade Vertebral Antegrade 27.50/ 5.20 cm/s 37.30/ 11.70 cm/s Tri Subclavian Bi 53.30 FINDINGS Comparison:. 08/20/23 No significant elevation of systolic or diastolic velocities. Waveforms are normal. Mild scattered plaque, bilateral. Antegrade vertebral arteries. CONCLUSIONS Bilateral ICA stenosis less than 50%. No interval change in stenosis since prior exam. Mild carotid atherosclerosis. Dr. Raisa Daniels DO (Electronically Signed) Final Date: 20 April 2025 11:38 S
== END 2025-05-14 23:59 | disposition home or self-care (01) ==
LOC: RAD 04-20 → ONCMED 04-20 09:11
PROVIDERS: PCP Family Medicine; Visit Provider Internal Medicine Medical Oncology
DX: D80.1 Nonfamilial hypogammaglobulinemia (principal); R19.7 Diarrhea, unspecified; L40.50 Arthropathic psoriasis, unspecified; Z79.899 Other long term (current) drug therapy; Z87.891 Personal history of nicotine dependence; Z53.9 Procedure and treatment not carried out, unspecified reason; Z98.890 Other specified postprocedural states; R42 Dizziness and giddiness
CPT/HCPCS: 93880

== ENCOUNTER 2025-06-15 13:16 | Oncology outpatient (recurring) (ONCR) | payer OTHER, SELFPAY ==
[2025-06-15 14:06] LABS: Hematocrit 39.4 % (37-53); Hemoglobin 12.90 g/dL (11.27-16.99); Mean Corpuscular HGB Conc 32.7 g/dL (30-55); Mean Corpuscular Hemoglobin 30.9 pg (27-33); Mean Corpuscular Volume 94.3 fl (82-101); Nucleated Red Blood Cells % 0 %; Platelet Count 153 10^3/cmm (157-399); Red Blood Count 4.18 10^6/uL (3.85-5.65); White Blood Count 7.59 10^3/uL (3.29-11.43)
[2025-06-15 14:24] LABS: Alanine Aminotransferase 15 U/L (0-41); Albumin Level 4.3 g/dL (3.5-5.2); Alkaline Phosphatase 86 U/L (40-130); Anion Gap 15.6 (5-19); Aspartate Amino Transferase 18 U/L (0-40); Blood Urea Nitrogen 16 mg/dL (8-23); Calcium 8.7 mg/dL (8.5-10.5); Carbon Dioxide 25 mmol/L (22-29); Chloride 104 mmol/L (98-107); Creatinine Clr Calc Pharmacy 53.1291; Globulin 2.5 g/dL (1.3-4.6); Glucose 110 mg/dL (65-115); Osmolality Calculated 294 mOsm/kg (285-295); Potassium 3.6 mmol/L (3.5-5.1); Sodium 141 mmol/L (136-145); Total Protein 6.8 g/dL (6.6-8.7)
[2025-06-16 06:26] LABS: PROTEIN, TOTAL 6.5 g/dL (6.1-8.1)
[2025-06-16 16:00] LABS: KAPPA LIGHT CHAIN, FREE, SERUM 18.2 mg/L (3.3-19.4); KAPPA/LAMBDA LIGHT CHAINS FREE 0.90 (0.26-1.65); LAMBDA LIGHT CHAIN, FREE, SERU 20.2 mg/L (5.7-26.3)
[2025-06-17 13:43] LABS: ALPHA 1 GLOBULIN 0.3 g/dL (0.2-0.3); ALPHA 2 GLOBULIN 0.8 g/dL (0.5-0.9); BETA 1 GLOBULIN 0.4 g/dL (0.4-0.6); BETA 2 GLOBULIN 0.3 g/dL (0.2-0.5)
== END 2025-07-14 23:59 | disposition home or self-care (01) ==
LOC: ONCMED 13:17
PROVIDERS: Internal Medicine; PCP Family Medicine; Visit Provider Internal Medicine
DX: D80.1 Nonfamilial hypogammaglobulinemia (principal); R19.7 Diarrhea, unspecified; Z79.899 Other long term (current) drug therapy; Z87.891 Personal history of nicotine dependence
CPT/HCPCS: 36415; 80053; 82784; 83010; 83615; 83883; 84155; 84165; 85025; 85651; 86140; 86334; 99214

== ENCOUNTER → 2025-08-16 10:14 | Outpatient (BNVA) | payer OTHER, SELFPAY | PROVIDERS: PCP Family Medicine; Visit Provider Nurse Practitioner Family | DX: I25.10 Atherosclerotic heart disease of native coronary artery without angina pectoris (principal); I10 Essential (primary) hypertension; R06.09 Other forms of dyspnea; R00.1 Bradycardia, unspecified; E78.5 Hyperlipidemia, unspecified; R60.9 Edema, unspecified; Z87.891 Personal history of nicotine dependence | CPT/HCPCS: 99214 ==